=== PATIENT | male | born 1930 | race Caucasian/White ===

== ENCOUNTER → 2016-11-01 | Outpatient (CLI) | payer MEDICARE, OTHER ==
[~2016-11-01] MED LIST: AMLO10TA2 PO; AMLO10TA4 PO; DOXA8TAB3 PO; DOXA8TAB73 PO; FINA5TAB PO; FINA5TAB6 PO; FURO40TA4 PO; LATA2.5D19 OU; LATA2.5D5 OU; METO100T5 PO; MULT-974 PO; OMEG-160 PO; OMEG1CAP51 PO; OMEP20CA12 PO; POTA99TA15 PO; SOTA80TA PO; UBID100C17 PO; VERA120T84 PO; VERA240C2 PO; Verapamil Hcl PO; WARF-48 PO; WARF1TAB6 PO; WARF5TAB6 PO
--- OUTSIDE RECORDS SUMMARY | 2016-11-01 15:44 | XMS REPORT | Continuity of Care Document ---
Author Author [facility] Organization [facility] Address Unknown Phone Unavailable Care Team Providers Care Agricultural Sciences Professor Name Role Phone PCP Unavailable Source Comments Some departments are not documenting in the electronic medical record. If you do not see the information that you expected, contact Release of Information in the Health Information Management department at [phone] for further assistance in locating additional records.[facility] Active Allergies and Adverse Reactions Allergen Noted [...]
[2016-11-01 16:18] LABS: ALBUMIN 4.3 G/DL (3.2-4.5); BILIRUBIN,TOTAL 0.7 MG/DL (0.1-1.0); CALCIUM 9.2 MG/DL (8.5-10.1); CREATININE SERUM 2.85 MG/DL (0.60-1.30); POTASSIUM 3.5 MMOL/L (3.6-5.0)
== END ==
LOC: LAB 15:40
PROVIDERS: ATTEND Nurse Practitioner Family
DX: I48.2 Chronic atrial fibrillation (principal); I50.32 Chronic diastolic (congestive) heart failure; R06.02 Shortness of breath; I10 Essential (primary) hypertension; I25.10 Atherosclerotic heart disease of native coronary artery without angina pectoris; Z79.01 Long term (current) use of anticoagulants
CPT/HCPCS: 36415; 80053; 83735; 83880

== ENCOUNTER 2016-12-11 11:04 | Outpatient (RCR) | payer MEDICARE, OTHER ==
--- OUTSIDE RECORDS SUMMARY | 2016-09-25 14:51 | XMS REPORT | Continuity of Care Document ---
Author Author [facility] Organization [facility] Address Unknown Phone Unavailable Care Team Providers Care Bus Repair Supervisor Name Role Phone PCP Unavailable Source Comments Some departments are not documenting in the electronic medical record. If you do not see the information that you expected, contact Release of Information in the Health Information Management department at [phone] for further assistance in locating additional records.[facility] Active Allergies and Adverse Reactions Allergen Noted Date Severity Reactions Comments Milad Inhibitors 11/26/2006 Allergy recorded in SMS: Milad Inhibitors Current Medications Not on file Active Problems Not on file Social History Tobacco Use Types Packs/Day Years Used Date Never Assessed Plan of Care Health Maintenance Due Date Last Done Comments Physical (Comprehensive) 1939 Exam Pertussis Vaccine 1943 Tetanus Vaccine 1949 Shingles Vaccine 1992 Prevnar/Pneumovax (#1) 1997 Influenza Vaccine 06/21/2015 Results from Last 3 Months Not on file
[2016-09-25 15:18] LABS: INR 3.4 (0.8-1.4); PROTHROMBIN TIME PATIENT 34.7 SEC (12.2-14.7)
[2016-10-30 15:47] LABS: INR 1.9 (0.8-1.4); PROTHROMBIN TIME PATIENT 21.5 SEC (12.2-14.7)
[2016-12-11 11:30] LABS: INR 2.2 (0.8-1.4)
== END 2016-12-24 | disposition home or self-care (01) ==
LOC: LAB 11:04
PROVIDERS: ATTEND Family Medicine
DX: Z51.81 Encounter for therapeutic drug level monitoring (principal); Z79.01 Long term (current) use of anticoagulants
CPT/HCPCS: 36415; 80053; 83735; 83880; 85610

== ENCOUNTER → 2016-12-11 | Outpatient (CLI) | payer MEDICARE, OTHER ==
[2016-12-11 11:39] LABS: ALBUMIN 4.2 G/DL (3.2-4.5); BILIRUBIN,TOTAL 0.8 MG/DL (0.1-1.0); CALCIUM 9.5 MG/DL (8.5-10.1); CREATININE SERUM 3.14 MG/DL (0.60-1.30)
--- OUTSIDE RECORDS SUMMARY | 2016-12-11 13:31 | XMS REPORT | Continuity of Care Document ---
Author Author [facility] Organization [facility] Address Unknown Phone Unavailable Care Team Providers Care Auditing Specialist Name Role Phone PCP Unavailable Source Comments Some departments are not documenting in the electronic medical record. If you do not see the information that you expected, contact Release of Information in the Health Information Management department at [phone] for further assistance in locating additional records.[facility] Active Allergies and Adverse Reactions Allergen [...]
== END ==
LOC: LAB 10:57
PROVIDERS: ATTEND Nurse Practitioner Family
DX: I48.2 Chronic atrial fibrillation (principal); I50.32 Chronic diastolic (congestive) heart failure; R06.02 Shortness of breath; I10 Essential (primary) hypertension; I25.10 Atherosclerotic heart disease of native coronary artery without angina pectoris; Z79.01 Long term (current) use of anticoagulants
CPT/HCPCS: 36415; 80053; 83735; 83880

== ENCOUNTER → 2016-12-18 | Outpatient (CLI) | payer MEDICARE, OTHER ==
[2016-12-18 13:10] LABS: CALCIUM 9.4 MG/DL (8.5-10.1); CREATININE SERUM 3.27 MG/DL (0.60-1.30); POTASSIUM 3.7 MMOL/L (3.6-5.0)
--- OUTSIDE RECORDS SUMMARY | 2016-12-18 16:05 | XMS REPORT | Continuity of Care Document ---
Author Author [facility] Organization [facility] Address Unknown Phone Unavailable Care Team Providers Care Ultrasound Technician Name Role Phone PCP Unavailable Source Comments Some departments are not documenting in the electronic medical record. If you do not see the information that you expected, contact Release of Information in the Health Information Management department at [phone] for further assistance in locating additional records.[facility] Active Allergies and Adverse Reactions Allergen [...]
== END ==
LOC: LAB 12:35
PROVIDERS: ATTEND Nurse Practitioner Family
DX: I25.10 Atherosclerotic heart disease of native coronary artery without angina pectoris (principal); I48.2 Chronic atrial fibrillation; Z79.01 Long term (current) use of anticoagulants; I50.32 Chronic diastolic (congestive) heart failure; I11.0 Hypertensive heart disease with heart failure; Z95.1 Presence of aortocoronary bypass graft; G47.33 Obstructive sleep apnea (adult) (pediatric); Z95.0 Presence of cardiac pacemaker
CPT/HCPCS: 36415; 80048; 83735

== ENCOUNTER → 2016-12-25 | Outpatient (CLI) | payer MEDICARE, OTHER ==
[~2016-12-25] MED LIST changes: +CATHETER FLUSH 10 ML SYR IV PRN; +REGADENOSON 0.4 MG/5 ML SYR (LEXISCAN) IV ONE
--- OUTSIDE RECORDS SUMMARY | 2016-12-25 11:39 | XMS REPORT | Continuity of Care Document ---
Author Author [facility] Organization [facility] Address Unknown Phone Unavailable Care Team Providers Care Mechanic And Welder Name Role Phone PCP Unavailable Source Comments Some departments are not documenting in the electronic medical record. If you do not see the information that you expected, contact Release of Information in the Health Information Management department at [phone] for further assistance in locating additional records.[facility] Active Allergies and Adverse Reactions Allergen [...]
[2016-12-25 12:58] LABS: BILIRUBIN,TOTAL 0.8 MG/DL (0.1-1.0); CALCIUM 9.3 MG/DL (8.5-10.1); CREATININE SERUM 2.81 MG/DL (0.60-1.30); MAGNESIUM 1.7 MG/DL (1.8-2.4); POTASSIUM 4.9 MMOL/L (3.6-5.0); TOTAL PROTEIN 6.5 G/DL (6.4-8.2)
[2016-12-25 13:10] VITALS: BP 146/65
--- NOTE | 2016-12-27 09:47 | STRESS TEST ---
PROCEDURE PHYSICIAN: YUSUF YODER DATE OF PROCEDURE: 12/25/2016 RESTING AND POST REGADENOSON TECHNETIUM 99M TETROFOSMIN SPECT CT IMAGING: CLINICAL DIAGNOSIS: 1. Coronary artery disease. 2. Chronic atrial fibrillation. ORDERING PHYSICIAN: Brii Lopez APRN. PRIMARY PHYSICIAN: Dr. Nash OTHER PHYSICIAN: Dr. Yoder. Baseline images were carried out after injection of 10.67 mCi of technetium 99m tetrofosmin. This was followed by 0.4 mg of regadenoson and 30.3 mCi of technetium 99m tetrofosmin for stress imaging. The electrocardiogram showed atrial fibrillation with right bundle branch block and with a somewhat rapid ventricular response. Isolated premature ventricular contractions were seen during the study. The electrocardiogram did not change significantly with regadenoson infusion. Overall, he tolerated the procedure well. Review of images at rest and following stress, indicate basal inferior perfusion defect which is predominantly fixed. Gated images show global hypokinesis and posterobasal akinesis. Left ventricular ejection fraction is calculated to be 22%. Left ventricular end-diastolic 119 mL. CONCLUSIONS: 1. Basal inferior infarction with minimal bianca-infarct ischemia. 2. Posterobasal akinesis. 3. Global hypokinesis of the left ventricle. 4. Impairment of global left ventricular systolic function with a calculated ejection fraction 22%. 5. Mild to moderate cardiomegaly. Job ID: [id number] Dictated Date: 12/26/2016 17:26:00 Fur Dressing Supervisor Date: 12/27/2016 09:42:38 / lizeth
== END ==
LOC: CARD 11:36
PROVIDERS: ATTEND Nurse Practitioner Family
DX: I25.10 Atherosclerotic heart disease of native coronary artery without angina pectoris (principal); I48.2 Chronic atrial fibrillation; I13.0 Hypertensive heart and chronic kidney disease with heart failure and stage 1 through stage 4 chronic kidney disease, or unspecified chronic kidney disease; I50.32 Chronic diastolic (congestive) heart failure; N18.4 Chronic kidney disease, stage 4 (severe); G47.33 Obstructive sleep apnea (adult) (pediatric); Z79.01 Long term (current) use of anticoagulants
CPT/HCPCS: 36415; 78452; 80053; 83735; 83880; 93017

== ENCOUNTER → 2017-01-08 | Outpatient (CLI) | payer MEDICARE, OTHER ==
[~2017-01-08] MED LIST changes: +HEParin (CENTRAL IV FLUSH) 500 UNIT/5 ML SYR ONE; -REGADENOSON 0.4 MG/5 ML SYR (LEXISCAN) IV ONE
--- NOTE | 2017-01-16 10:19 | Diagnostic Imaging Report ---
PROCEDURE PHYSICIAN: YUSUF YODER RADIONUCLIDE VENTRICULOGRAPHY DATE OF PROCEDURE: 01/08/2017 ORDERING PHYSICIAN: Brii Lopez APRN. PRIMARY PHYSICIAN: Dr. Nash OTHER PHYSICIAN: Dr. Yoder. CLINICAL DIAGNOSIS: Cardiomyopathy. Gated images were obtained after injection of red blood cells tagged with autologous red blood cells tagged with 33 mCi of technetium 99m tetrofosmin. Gated images show global hypokinesia of the left ventricle, somewhat more marked in the septal wall. Left ventricular ejection fraction is calculated to be 21%. CONCLUSION: 1. Global hypokinesia of the left ventricle, somewhat more marked in the interventricular septum. 2. Left ventricular ejection fraction is calculated to be 21%. Job ID: [id number] Dictated Date: 01/15/2017 17:30:00 Manufacturing Specialist Date: 01/16/2017 10:15:23 / monica
== END ==
LOC: CARD 11:31
PROVIDERS: ATTEND Nurse Practitioner Family
DX: I25.5 Ischemic cardiomyopathy (principal)
CPT/HCPCS: 78472

== ENCOUNTER 2017-01-15 12:51 | Outpatient (RCR) | payer MEDICARE, OTHER ==
[2017-01-15 13:18] LABS: INR 2.9 (0.8-1.4); PROTHROMBIN TIME PATIENT 29.8 SEC (12.2-14.7)
== END 2017-04-15 | disposition home or self-care (01) ==
LOC: LAB 12:51
PROVIDERS: ATTEND Family Medicine
DX: Z51.81 Encounter for therapeutic drug level monitoring (principal); Z79.01 Long term (current) use of anticoagulants
CPT/HCPCS: 36415; 85610

== ENCOUNTER → 2017-01-15 | Outpatient (CLI) | payer MEDICARE, OTHER ==
[~2017-01-15] MED LIST changes: -CATHETER FLUSH 10 ML SYR IV PRN; -HEParin (CENTRAL IV FLUSH) 500 UNIT/5 ML SYR ONE
--- NOTE | 2017-01-17 14:10 | ECHOCARDIOGRAPHY REPORT ---
PROCEDURE PHYSICIAN: YUSUF YODER DATE OF PROCEDURE: 01/15/2017 TWO DIMENSIONAL ECHOCARDIOGRAM REPORT PRIMARY PHYSICIAN: Dr. Nash OTHER PHYSICIAN: Dr. Yoder REFERRING PHYSICIAN: ORDERING PHYSICIAN: Brii Lopez APRN INDICATION FOR THE PROCEDURE: Cardiomyopathy. MEASUREMENTS DERIVED VALUES LV DIAMETER (LAX) NORMALS NORMALS Diastolic 5.4 (3.6-5.2) Eject. Fract. (60%+/-6%) Systolic (2.3-3.9) Diastolic Vol. % Shortening (0.22-0.42) Systolic Vol. Aortic Root 3.5 IVS THICKNESS Diastolic 1.1 (0.6-1.1) LVPW THICKNESS Diastolic 1.1 (0.6-1.1) LA DIAMETER Systolic 5.5 (2.1-3.7) DESCRIPTION: Two-dimension echocardiography shows mild impairment of global left ventricular systolic function with mild global hypokinesis. There is paradoxical septal motion. Left ventricular ejection fraction is estimated to be 40 to 45%. Aortic, mitral and tricuspid valve leaflets show good leaflet excursion. There is moderately severe enlargement of the left atrium and mild enlargement of the left ventricle. There is mild to moderate mitral annular calcification and moderate aortic valve sclerosis. Mitral and tricuspid valve leaflets show good leaflet excursion. Aortic valve leaflet structure is difficult to visualize. Aortic valve seemed to have fair leaflet excursion. Echodense structures in the right heart are consistent with pacemaker/defibrillator lead/leads. Doppler imaging shows mild mitral regurgitation. Peak pressure gradient across the aortic valve is approximately 14 mmHg with a mean gradient of approximately 8 mmHg and the aortic valve area is calculated to be approximately 1.6 sq cm. There is no distinct evidence of significant intracardiac shunt. Inferior vena cava appears to be moderately dilated. Pulmonary artery systolic pressure is estimated to be approximately 50 mmHg. There is moderate tricuspid regurgitation. CONCLUSIONS: 1. Dilated cardiomyopathy mild enlargement of the left ventricle and moderately severe enlargement of the left atrium, global hypokinesis of the left ventricle, paradoxical septal motion, and left ventricular ejection fraction of 40 to 45%. 2. Mild mitral regurgitation and moderate tricuspid regurgitation. 3. Aortic valve sclerosis without significant valvular stenosis. 4. Pulmonary hypertension with an estimated pulmonary artery systolic pressure approximately 15 mmHg. 5. Mild to moderate mitral annular calcification without evidence of significant valvular stenosis. Job ID: [id number] Dictated Date: 01/17/2017 12:15:00 Environmental Science Instructor Date: 01/17/2017 13:56:51 / monica
== END ==
LOC: CARD 11:31
PROVIDERS: ATTEND Nurse Practitioner Family
DX: I25.5 Ischemic cardiomyopathy (principal)
CPT/HCPCS: 93306

== ENCOUNTER 2017-01-30 13:30 | Emergency (ER) | payer MEDICARE, OTHER ==
[~2017-01-30] VITALS: Ht 180.3 cm; Wt 95.3 kg
[2017-01-30] MEDS ORDERED: ASPIRIN 81 MG CHEW (CHILDREN'S ASA) PO ONE (14:30)
[2017-01-30 14:41] LABS: INR 4.3 (0.8-1.4); PROTHROMBIN TIME PATIENT 41.7 SEC (12.2-14.7)
[2017-01-30 14:42] LABS: BASOPHILS % (AUTO) 0 % (0-10); EOSINOPHILS % (AUTO) 0 % (0-10); LYMPHOCYTES # (AUTO) 0.7 X 10^3 (1.0-4.0); LYMPHOCYTES % (AUTO) 7 % (12-44); MEAN CORPUSCULAR HEMOGLOBIN 23 PG (25-34); MEAN CORPUSCULAR HGB CONC 29 G/DL (32-36); MEAN CORPUSCULAR VOLUME 80 FL (80-99); MONOCYTES # (AUTO) 0.6 X 10^3 (0.0-1.0); MONOCYTES % (AUTO) 6 % (0-12); NEUTROPHILS # (AUTO) 8.3 X 10^3 (1.8-7.8); NEUTROPHILS % (AUTO) 87 % (42-75); PLATELET COUNT 211 10^3/uL (130-400); RED BLOOD COUNT 4.25 10^6/uL (4.35-5.85); RED CELL DISTRIBUTION WIDTH 18.1 % (10.0-14.5); WHITE BLOOD COUNT 9.6 10^3/uL (4.3-11.0)
[2017-01-30 14:49] LABS: ALANINE AMINOTRANSFERASE 263 U/L (0-55); ANION GAP 18 MMOL/L (5-14); ASPARTATE AMINO TRANSFERASE 207 U/L (5-34); BILIRUBIN,TOTAL 1.8 MG/DL (0.1-1.0); BLOOD UREA NITROGEN 99 MG/DL (7-18); BUN/CREATININE RATIO 22; CALCIUM 9.1 MG/DL (8.5-10.1); CARBON DIOXIDE 18 MMOL/L (21-32); CHLORIDE 105 MMOL/L (98-107); CREATINE KINASE 193 U/L (30-200); CREATININE SERUM 4.55 MG/DL (0.60-1.30); GFR ESTIMATED 12; GLUCOSE 171 MG/DL (70-105); MAGNESIUM 2.5 MG/DL (1.8-2.4); POTASSIUM 4.7 MMOL/L (3.6-5.0); SODIUM 141 MMOL/L (135-145); TOTAL PROTEIN 6.4 G/DL (6.4-8.2)
[2017-01-30 15:09] LABS: TROPONIN I < 0.30 NG/ML (<0.30)
--- NOTE | 2017-01-30 15:11 | ED Lower Extremity ---
General Chief Complaint: Lower Extremity Stated Complaint: LEGS/ANKLES SWELLING Nursing Triage Note: PT HAS BILATERAL LEG SWELLING UP TO KNEES, PT STATES LEGS WEEPING AND HAVE BLISTERS. PT STATES HAS RENAL FAILURE, WAS SENT FROM DR PIERRE OFFICE FOR EVALUATION Nursing Sepsis Screen: No Definite Risk Source: patient (LIMITED HISTORIAN), old records History of Present Illness Time seen by provider: 14:27 Initial Comments PT ARRIVES VIA POV HAS CHRONIC LEG EDEMA, HAS BEEN WORSE FOR THE LAST COUPLE OF DAYS---BUT HAS BEEN THIS BAD BEFORE BOTH LEGS ARE PAINFUL STATES LEGS HAVE HAD BLISTERS THAT HAVE RUPTURED AND WEEPING FOR THE LAST COUPLE OF WEEKS NO FEVER /SWEATS / CHILLS NO CHEST PAIN IS ALWAYS SHORT OF BREATH AND HAS DYSPNEA ON VERY MINIMAL EXERTION, WHICH HAS GRADUALLY GOTTEN WORSE, BUT IS NOT ANY DIFFERENT TODAY THAN IT HAS BEEN STATES HE HAS CHRONIC ATRIAL FIBRILLATION AND IS ON COUMADIN. NO SENSATION OF RAPID HEART RATE. PT STATES HE HAS BEEN ON METOLAZONE FOR LEG SWELLING, LEGS GOT BETTER, THEN MEDICATION WAS DC'D, THEN WAS RESTARTED RECENTLY --PT HAS NO IDEA HOW LONG AGO IT WAS RESTARTED, BUT SOMETIME IN THE LAST MONTH APPARENTLY, BY DR. ABDI PT HAS CHRONIC RENAL FAILURE AND SAW CV SURGEON DR. DAVILA AT [facility] THIS AM FOR EVALUATION FOR AV GRAFT FOR IMPENDING DIALYSIS. SURGERY HAS NOT BEEN SCHEDULED YET PT HAS NOT STARTED DIALYSIS YET, AND STATES HE HAS AN APPOINTMENT WITH DR. HERRING , SOCIAL SERVICES MANAGER, THE FIRST WEEK OF FEBRUARY--HAS NOT SEEN YET, ACCORDING TO PT. PT STATES THAT DR. DAVILA TOLD HIM TO COME HERE TO THIS ER BECAUSE OF HIS LEG SWELLING AND WEEPING. SO PT DROVE TO THIS ER FROM [facility] PCP: DR. VINSON WARDROBE IMAGE CONSULTANT: DR. ABDI Allergies and Home Medications Allergies Coded Allergies: KEELEY Inhibitors (Verified Allergy, Severe, wheezing and swelling in his throat with KEELEY inhibitors, 11/01/15) wheezing and swelling in his throat with KEELEY inhibitors atenolol (Verified Allergy, Severe, swelling throat, 11/01/15) swelling in his throat and wheezing with nonselective beta blockers. metoprolol (Verified Allergy, Severe, throat swelling and dry cough, ) throat swelling and dry cough Rcxjlcx-Vgw-Tes Reductase Inhibitor (Unverified Allergy, Unknown, 1/12/16) Home Medications Amlodipine Besylate 10 Mg Tablet, 10 MG PO DAILY, (Reported) Doxazosin Mesylate 8 Mg Tablet, 4 MG PO HS, (Reported) TAKES 1/2 OF A (8 MG) TABLET Finasteride 5 Mg Tablet, 5 MG PO DAILY, (Reported) Furosemide 40 Mg Tablet, 40 MG PO BID, (Reported) Latanoprost 2.5 Ml Drops, 1 DROP OU HS, (Reported) Multivitamin 1 Each Tablet, 1 TAB PO DAILY, (Reported) [place]-3/Dha/Epa/Fish Oil 1 Each Capsule, 1 CAP PO BID, (Reported) Omeprazole 20 Mg Capsule.dr, 20 MG PO DAILY, (Reported) Potassium Gluconate 99 Mg Tablet, 99 MG PO DAILY, (Reported) Ubidecarenone 100 Mg Capsule, 100 MG PO DAILY, (Reported) Verapamil HCl 120 Mg Tablet.er, 120 MG PO HS, (Reported) Verapamil HCl 240 Mg Cap24h.pel, 240 MG PO DAILY, (Reported) Warfarin Sodium 5 Mg Tablet, 5 MG PO DAILY, (Reported) Warfarin Sodium 1 Mg Tablet, 0.5 MG PO DAILY, (Reported) TAKES 1/2 OF A (1 MG) TABLET WITH A 5 MG TABLET TO EQUAL 6 MG TOTAL Constitutional: no symptoms reported, No chills, No diaphoresis, No fever Respiratory: see HPI, No cough, dyspnea on exertion, orthopnea, short of breath , No wheezing Cardiovascular: see HPI, No chest pain, edema Gastrointestinal: no symptoms reported Genitourinary: no symptoms reported, other (MINIMAL URINE OUTPUT) Musculoskeletal: see HPI Skin: see HPI Psychiatric/Neurological: No Symptoms Reported Past Ajdzrbw-Ztaxpm-Rixwie Hx Patient Social History Alcohol Use: Denies Use Recreational Drug Use: No Smoking Status: Former Smoker (1 PPD, QUIT 1977) Former Smoker/When Quit: Mar 29, 1978 Recent Foreign Travel: No Contact w/Someone Who Travel: No Recent Infectious Disease Expo: No Recent Hopitalizations: No Immunizations Up To Date Tetanus Booster (TDap): Less than 5yrs PED Vaccines UTD: Yes Date of Pneumonia Vaccine: Sep 20, 2014 Date of Influenza Vaccine: Jul 27, 2015 Seasonal Allergies Seasonal Allergies: No Surgeries HX Surgeries: Yes (MITRAL VALVE REPAIR; CARDIAC CATHS--UNKNOWN NUMBER OF STENTS ) Surgeries: Appendectomy, Cardiac, CABG, Coronary Stent, Pacemaker, Valve Replacement Respiratory Hx Respiratory Disorders: No Respiratory Disorders: Sleep Apnea Cardiovascular Hx Cardiac Disorders: Yes (MITRAL VALVE PROLAPSE) Cardiac Disorders: Atrial Fibrillation, Chronic Edema/Swelling, Coronary Artery Disease, Heart Attack, Heart Murmur, Hypertension, Valvular Heart Disease Neurological Hx Neurological Disorders: No Reproductive System Hx Reproductive Disorders: No Sexually Transmitted Disease: No HIV/AIDS: No Genitourinary Hx Genitourinary Disorders: Yes (CHRONIC RENAL FAILURE) Genitourinary Disorders: Renal Failure Gastrointestinal Hx Gastrointestinal Disorders: No Musculoskeletal Hx Musculoskeletal Disorders: No Endocrine Hx Endocrine Disorders: No HEENT HX ENT Disorders: Yes HEENT Disorders: Cataract, Glaucoma Loss of Vision: Right Hearing Impairment: Denies Cancer Hx Cancer: No Psychosocial Hx Psychiatric Problems: No Integumentary HX Skin/Integumentary Disorder: No Blood Transfusions Hx Blood Disorders: No Adverse Reaction to a Blood Tr: No Family Medical History Family Medial History: Diabetes mellitus 19 MOTHER G8 SISTER FH: aneurysm FH: heart disease 19 MOTHER Prostate cancer 19 FATHER Physical Exam Vital Signs Vital Sign - Last 12Hours 01/30/17 01/30/17 01/30/17 13:35 14:15 16:40 Temp 97.5 Pulse 84 Resp 16 B/P (MAP) 109/71 Pulse Ox 99 O2 Delivery Nasal Cannula O2 Flow Rate 2.00 Capillary Refill : Less Than 3 Seconds General Appearance: WD/WN, no apparent distress HEENT: other (RIGHT CORNEA OPACIFIED) Neck: normal inspection Cardiovascular: tachycardia, systolic murmur (2/6), irregularly irregular Respiratory: decreased breath sounds (IN BASES), No rales, No rhonchi, No wheezing Gastrointestinal: non tender, soft Legs: bilateral leg other (4+ EDEMA TO BILATERAL LOWER LEGS, WITH CHRONIC VENOUS STASIS CHANGES AND MILD ERYTHEMA TO LOWER LEGS. HAS MULTIPLE ULCERATIONS WITH ADHERENT WHITE EXUDATE AND PROFUSE WEEPING OF CLEAR SEROUS FLUID FROM LOWER LEGS--LITERALLY DRIPPING INTO POOLS ON THE FLOOR AND ER CART) Neurologic/Tendon: normal sensation, normal motor functions, normal tendon functions Neurologic/Psychiatric: no motor/sensory deficits, alert, normal mood/affect, oriented x 3 Skin: normal color, warm/dry, other ( ABOVE) Progress/Results/Core Measures Results/Orders Lab Results Laboratory Tests Test 01/30/17 13:50 01/30/17 15:55 Range/Units White Blood Count 9.6 4.3-11.0 10^3/uL Red Blood Count 4.25 L 4.35-5.85 10^6/uL Hemoglobin 9.8 L 13.3-17.7 G/DL Hematocrit 34 L 40-54 % Mean Corpuscular Volume 80 80-99 FL Mean Corpuscular Hemoglobin 23 L 25-34 PG Mean Corpuscular Hemoglobin Concent 29 L 32-36 G/DL Red Cell Distribution Width 18.1 H 10.0-14.5 % Platelet Count 211 130-400 10^3/uL Mean Platelet Volume 11.0 H 7.4-10.4 FL Neutrophils (%) (Auto) 87 H 42-75 % Lymphocytes (%) (Auto) 7 L 12-44 % Monocytes (%) (Auto) 6 0-12 % Eosinophils (%) (Auto) 0 0-10 % Basophils (%) (Auto) 0 0-10 % Neutrophils # (Auto) 8.3 H 1.8-7.8 X 10^3 Lymphocytes # (Auto) 0.7 L 1.0-4.0 X 10^3 Monocytes # (Auto) 0.6 0.0-1.0 X 10^3 Eosinophils # (Auto) 0.0 0.0-0.3 10^3/uL Basophils # (Auto) 0.0 0.0-0.1 10^3/uL Neutrophils % (Manual) 90 % Lymphocytes % (Manual) 6 % Monocytes % (Manual) 3 % Eosinophils % (Manual) 0 % Basophils % (Manual) 0 % Band Neutrophils 1 % Hypochromasia SLIGHT Poikilocytosis SLIGHT Anisocytosis SLIGHT Elliptocytes SLIGHT Prothrombin Time 41.7 H 12.2-14.7 SEC INR Comment 4.3 H 0.8-1.4 Activated Partial Thromboplast Time 44 H 24-35 SEC Sodium Level 141 135-145 MMOL/L Potassium Level 4.7 3.6-5.0 MMOL/L Chloride Level 105 98-107 MMOL/L Carbon Dioxide Level 18 L 21-32 MMOL/L Anion Gap 18 H 5-14 MMOL/L Blood Urea Nitrogen 99 H 7-18 MG/DL Creatinine 4.55 H 0.60-1.30 MG/DL Estimat Glomerular Filtration Rate 12 BUN/Creatinine Ratio 22 Glucose Level 171 H 70-105 MG/DL Calcium Level 9.1 8.5-10.1 MG/DL Magnesium Level 2.5 H 1.8-2.4 MG/DL Total Bilirubin 1.8 H 0.1-1.0 MG/DL Aspartate Amino Transf (AST/SGOT) 207 H 5-34 U/L Alanine Aminotransferase (ALT/SGPT) 263 H 0-55 U/L Alkaline Phosphatase 75 40-136 U/L Total Creatine Kinase 193 30-200 U/L Creatine Kinase MB 8.9 *H <6.6 NG/ML Troponin I < 0.30 <0.30 NG/ML B-Type Natriuretic Peptide 2120.6 H <100.0 PG/ML Total Protein 6.4 6.4-8.2 G/DL Albumin 4.0 3.2-4.5 G/DL TSH [place] Testing 1.82 0.35-4.94 UIU/ML Urine Color YELLOW Urine Clarity CLEAR Urine pH 5 5-9 Urine Specific [place] 1.020 1.016-1.022 Urine Protein 1+ H NEGATIVE Urine Glucose (UA) NEGATIVE NEGATIVE Urine Ketones NEGATIVE NEGATIVE Urine Nitrite NEGATIVE NEGATIVE Urine Bilirubin NEGATIVE NEGATIVE Urine Urobilinogen NORMAL NORMAL MG/DL Urine Leukocyte Esterase NEGATIVE NEGATIVE Urine RBC (Auto) NEGATIVE NEGATIVE Urine RBC NONE /HPF Urine WBC RARE /HPF Urine Squamous Epithelial Cells RARE /HPF Urine Crystals NONE /LPF Urine Bacteria TRACE /HPF Urine Casts PRESENT /LPF Urine Hyaline Casts 25-50 H /LPF Urine Mucus NEGATIVE /LPF Urine Culture Indicated NO Micro Results Microbiology 01/30/17 Gram Stain - Final, Resulted 01/30/17 Wound Culture - Preliminary, Resulted Probable Enterococcus Species Gram Negative Moris My Orders Orders - SHANEKA ANDRADE DO Cbc With Automated Diff (01/30/17 14:27) Comprehensive Metabolic Panel (01/30/17 14:27) Creatine Kinase (01/30/17 14:27) Creatine Kinase Mb (01/30/17 14:27) Partial Thromboplastin Time (01/30/17 14:27) Protime With Inr (01/30/17 14:27) Troponin I (01/30/17 14:27) Chest 1 View, Ap/Pa Only (01/30/17 14:27) O2 (01/30/17 14:27) Ekg Tracing (01/30/17 14:27) Aspirin Chewable Tablet (Baby Aspirin Ch (01/30/17 14:30) BNP (01/30/17 14:27) Monitor-Rhythm Ecg Trace Only (01/30/17 14:27) Magnesium (01/30/17 14:27) Thyroid Analyzer (01/30/17 14:27) Manual Differential (01/30/17 13:50) Wound Culture (01/30/17 14:51) Mupirocin Ointment (Bactroban Ointment (01/30/17 21:00) Wound Dressing-Ed (01/30/17 15:11) Norepinephrine (Levophed) (01/30/17 15:24) D5w 250 Ml (Ivpb) (Dextrose 5% Water Iv (01/30/17 15:24) Saline Lock/Iv-Start (01/30/17 15:29) Ns Iv 1000 Ml (Sodium Chloride 0.9%) (01/30/17 15:29) D5w 250 Ml (Ivpb) (... W/Norepinephrine (01/30/17 15:30) Catheter(Urinary) Insert & Ass 03,15 (01/30/17 15:31) Fentanyl Injection (Sublimaze Injection (01/30/17 15:48) Ua Culture If Indicated (01/30/17 16:07) Iv Infusion <= First Hr Ed (01/30/17 ) Medications Given in ED Vital Signs/I&O Vital Sign - Last 12Hours 01/30/17 01/30/17 01/30/17 13:35 14:15 16:40 Temp 97.5 Pulse 84 118 Resp 16 B/P (MAP) 109/71 Pulse Ox 99 94 96 O2 Delivery Nasal Cannula O2 Flow Rate 2.00 Blood Pressure Mean: 84 Progress Note : Progress Note PT BEGAN TO HAVE DROP IN BP--GIVEN FLUID BOLUS AND STARTED ON LEVOPHED WITH RAPID IMPROVEMENT IN BP AND HEART RATE. ECG Initial ECG Impression Time: 14:19 Initial ECG Rate: 146 Initial ECG Rhythm: A Fib/Flutter (WTIH RVR) Diagnostic Imaging Comments CXR--CARDIOMEGALY, CHRONIC ATELECTASIS/EFFUSION IN RLL--UNCHANGED FROM PREVIOUS- -PER RADIOLOGIST REPORT @ 1519 Reviewed: Reviewed by Me Critical Care Note Critical Care Total Time (minutes) 20 Departure Communication Progress Notes [id number]--CALLED [facility] [id number]--SPOKE WITH DR. DELEON, BRISKET PULLER, ACCEPTS PT FOR ADMIT/TRANSFER Impression Impression: Primary Impression: ESRF (end stage renal failure) Additional Impressions: SEVERE LEG EDEMA MULTIPLE VENOUS STASIS BLISTERS AND ULCERATIONS ATRIAL FIBRILLATION WITH RVR AND HYPOTENSION Elevated liver enzymes CHF (congestive heart failure) Disposition: XFER SHT-TRM HOSP Condition: Improved Departure-Patient Inst. Referrals: SARA VINSON MD (PCP/Family) Primary Care Physician SHANEKA ANDRADE DO Jan 30, 2017 15:11
[2017-01-30 15:13] LABS: ANISOCYTOSIS SLIGHT; BAND NEUTROPHILS 1 %; BASOPHILS % (MANUAL) 0 %; EOSINOPHILS % (MANUAL) 0 %; HYPOCHROMASIA SLIGHT; LYMPHOCYTES % (MANUAL) 6 %; NEUTROPHILS % (MANUAL) 90 %; POIKILOCYTOSIS SLIGHT
--- NOTE | 2017-01-30 15:14 | Diagnostic Imaging Report ---
EXAMINATION: Portable upright radiograph of the chest. INDICATION: Ankles and feet swelling. History of heart failure. FINDINGS: The heart is moderately enlarged. There is a small right pleural effusion or pleural thickening, similar to 10/31/2015. There is mild right basilar opacity also seen which may relate to atelectasis. The left lung appears clear. No pneumothorax. The mediastinum and dary appear unchanged. Sternotomy wires and a pacemaker with three leads seen. IMPRESSION: Cardiomegaly. A small right effusion and right basilar opacity, likely related to atelectasis, are seen. The appearance is similar to the October 2015 radiograph. Dictated by: Dictated on workstation # [id number]
[2017-01-30] MEDS ORDERED: D5W 250 ML (IVPB) 250 ML IV ONE (15:24)
[2017-01-30] MEDS ORDERED: NOREPINEPHRINE 4 MG/4 ML (LEVOPHED) AMP IV ONE (15:24)
[2017-01-30] MEDS ORDERED: NS IV 1000 ML 1,000 ML IV ONE (15:29)
[2017-01-30] MEDS ORDERED: NOREPINEPHRINE 4 MG in D5W 250 ML (IVPB) 250 ML IV SCH (15:30)
[2017-01-30] MEDS ORDERED: fentaNYL INJECTION 100 MCG/2 ML AMP IVP STA (15:48)
[2017-01-30 16:16] LABS: BILIRUBIN,URINE NEGATIVE (NEGATIVE); KETONES,URINE NEGATIVE (NEGATIVE); LEUKOCYTE ESTERASE ,URINE NEGATIVE (NEGATIVE); NITRITE,URINE NEGATIVE (NEGATIVE); PH,URINE 5 (5-9); PROTEIN,URINE 1+ (NEGATIVE); UROBILINOGEN,URINE NORMAL (NORMAL)
[2017-01-30 16:40] VITALS: BP 142/62
[2017-01-30 16:43] LABS: HYALINE CASTS, URINE 25-50 /LPF; SQUAMOUS EPITHELIAL CELL,UR RARE /HPF; WBC,URINE RARE /HPF
[2017-01-30] MEDS ORDERED: MUPIROCIN 2% OINT 22 GM (BACTROBAN) TUBE TOP SCH (21:00)
== END 2017-01-30 16:41 | disposition short-term general hospital (02) ==
LOC: EDUNIT# 13:30 → ER 13:31
DX: L97.921 Non-pressure chronic ulcer of unspecified part of left lower leg limited to breakdown of skin (principal); L97.911 Non-pressure chronic ulcer of unspecified part of right lower leg limited to breakdown of skin; I12.9 Hypertensive chronic kidney disease with stage 1 through stage 4 chronic kidney disease, or unspecified chronic kidney disease; N18.9 Chronic kidney disease, unspecified; R74.8 Abnormal levels of other serum enzymes; I25.10 Atherosclerotic heart disease of native coronary artery without angina pectoris; I48.2 Chronic atrial fibrillation; Z79.01 Long term (current) use of anticoagulants; Z79.899 Other long term (current) drug therapy; Z95.1 Presence of aortocoronary bypass graft; Z95.5 Presence of coronary angioplasty implant and graft; Z95.2 Presence of prosthetic heart valve
CPT/HCPCS: 36415; 51702; 71010; 80053; 81000; 82550; 82553; 83735; 83880; 84443; 84484; 85007; 85027; 85610; 85730; 87070; 87077; 87186; 87205; 93005; 93041; 96361; 96365; 96375

== ENCOUNTER 2017-03-27 08:19 | Outpatient (RCR) | payer MEDICARE, OTHER ==
[2017-04-27] MEDS ORDERED: FURO-124 PO (11:40)
[2017-04-27] MEDS ORDERED: DAPS25TA2 PO (11:40)
[2017-04-27] MEDS ORDERED: DIGO125T PO (11:40)
[2017-04-27] MEDS ORDERED: MELA10TA PO (11:40)
[2017-04-27] MEDS ORDERED: METO2.5T PO (11:40)
[2017-04-27] MEDS ORDERED: MAG30ORA2 PO (11:40)
[2017-04-27] MEDS ORDERED: DILT180C64 PO (11:40)
[2017-04-27] MEDS ORDERED: GLUC500C2 PO (11:40)
[2017-04-27] MEDS ORDERED: SAW500CA10 PO (11:40)
[2017-04-27] MEDS ORDERED: LATA2.5D5 OP (11:40)
[2017-04-27] MEDS ORDERED: METO-270 PO (11:40)
[2017-04-27] MEDS ORDERED: HYDR-753 PO (11:40)
[2017-04-27] MEDS ORDERED: TAMS0.4C2 PO (11:40)
== END 2017-04-26 10:36 | disposition home or self-care (01) ==
LOC: WOUNDCARE 08:19
PROVIDERS: ATTEND Surgery
DX: L97.222 Non-pressure chronic ulcer of left calf with fat layer exposed (principal); I87.332 Chronic venous hypertension (idiopathic) with ulcer and inflammation of left lower extremity; L95.9 Vasculitis limited to the skin, unspecified; L02.416 Cutaneous abscess of left lower limb; I89.0 Lymphedema, not elsewhere classified; N18.5 Chronic kidney disease, stage 5; I50.9 Heart failure, unspecified; I70.242 Atherosclerosis of native arteries of left leg with ulceration of calf; L88 Pyoderma gangrenosum; L20.89 Other atopic dermatitis
CPT/HCPCS: 11042; 11045; 11055; 11101; 87070; 87075; 87077; 87186; 87205; 88305; 88312; 99215

== ENCOUNTER 2017-04-03 10:58 | Emergency (ER) | payer MEDICARE, OTHER ==
[~2017-04-03] VITALS: Ht 180.3 cm; Wt 99.8 kg
--- NOTE | 2017-04-03 11:23 | ED General ---
General Stated Complaint: EXCESSIVE FLUID Source of Information: Patient, Prison Records History of Present Illness Time Seen by Provider: 11:18 Initial Comments To ER from medical [facility] with reports of general weakness. He is a patient of Dr. Nash and he also sees Dr. Mejia training facilitator at [facility]. His chronic kidney disease and has been referred to Dr. Hanna for AV fistula development in preparation for hemodialysis. No surgery has been scheduled yet. Patient is DO NOT RESUSCITATE status. Patient states that he is swollen all over but this is no different than it has been for the past 5 weeks. He is short of breath with any exertion but not any worse than usual for the past several weeks. Oxygen saturation 99 percent on his baseline 2 L. Heart rate 130 on arrival, blood pressure 91/78. He is also seeing Dr. 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 Timing/Duration: 1-2 Days Severity: Moderate Associated Systoms: Weakness Allergies and Home Medications Allergies Coded Allergies: KEELEY Inhibitors (Verified Allergy, Severe, wheezing and swelling in his throat with KEELEY inhibitors, 11/01/15) wheezing and swelling in his throat with KEELEY inhibitors atenolol (Verified Allergy, Severe, swelling throat, 11/01/15) swelling in his throat and wheezing with nonselective beta blockers. metoprolol (Verified Allergy, Severe, throat swelling and dry cough, ) throat swelling and dry cough Czhbqnj-Qiw-Pym Reductase Inhibitor (Unverified Allergy, Unknown, 11/01/15) Home Medications Amlodipine Besylate 10 Mg Tablet, 10 MG PO DAILY, (Reported) Doxazosin Mesylate 8 Mg Tablet, 4 MG PO HS, (Reported) TAKES 1/2 OF A (8 MG) TABLET Finasteride 5 Mg Tablet, 5 MG PO DAILY, (Reported) Furosemide 40 Mg Tablet, 40 MG PO BID, (Reported) Latanoprost 2.5 Ml Drops, 1 DROP OU HS, (Reported) Multivitamin 1 Each Tablet, 1 TAB PO DAILY, (Reported) [place]-3/Dha/Epa/Fish Oil 1 Each Capsule, 1 CAP PO BID, (Reported) Omeprazole 20 Mg Capsule.dr, 20 MG PO DAILY, (Reported) Potassium Gluconate 99 Mg Tablet, 99 MG PO DAILY, (Reported) Ubidecarenone 100 Mg Capsule, 100 MG PO DAILY, (Reported) Verapamil HCl 120 Mg Tablet.er, 120 MG PO HS, (Reported) Verapamil HCl 240 Mg Cap24h.pel, 240 MG PO DAILY, (Reported) Warfarin Sodium 5 Mg Tablet, 5 MG PO DAILY, (Reported) Warfarin Sodium 1 Mg Tablet, 0.5 MG PO DAILY, (Reported) TAKES 1/2 OF A (1 MG) TABLET WITH A 5 MG TABLET TO EQUAL 6 MG TOTAL Constitutional: see HPI, weakness EENTM: see HPI Respiratory: see HPI, short of breath Cardiovascular: no symptoms reported Genitourinary: see HPI, dysuria Musculoskeletal: no symptoms reported Skin: no symptoms reported Psychiatric/Neurological: No Symptoms Reported Hematologic/Lymphatic: No Symptoms Reported Immunological/Allergic: no symptoms reported Past Vvdzcze-Dyefvw-Acaojd Hx Patient Social History Former Smoker/When Quit: Mar 29, 1978 Recent Foreign Travel: No Contact w/Someone Who Travel: No Recent Hopitalizations: No Immunizations Up To Date Tetanus Booster (TDap): Less than 5yrs PED Vaccines UTD: Yes Date of Pneumonia Vaccine: Sep 20, 2014 Date of Influenza Vaccine: Jul 27, 2015 Seasonal Allergies Seasonal Allergies: No Surgeries HX Surgeries: Yes (MITRAL VALVE REPAIR; CARDIAC CATHS--UNKNOWN NUMBER OF STENTS ) Surgeries: Appendectomy, Cardiac, CABG, Coronary Stent, Pacemaker, Valve Replacement Respiratory Hx Respiratory Disorders: No Respiratory Disorders: Sleep Apnea Cardiovascular Hx Cardiac Disorders: Yes (MITRAL VALVE PROLAPSE) Cardiac Disorders: Atrial Fibrillation, Chronic Edema/Swelling, Coronary Artery Disease, Heart Attack, Heart Murmur, Hypertension, Valvular Heart Disease Neurological Hx Neurological Disorders: No Reproductive System Hx Reproductive Disorders: No Sexually Transmitted Disease: No HIV/AIDS: No Genitourinary Hx Genitourinary Disorders: Yes (CHRONIC RENAL FAILURE) Genitourinary Disorders: Renal Failure Gastrointestinal Hx Gastrointestinal Disorders: No Musculoskeletal Hx Musculoskeletal Disorders: No Endocrine Hx Endocrine Disorders: No HEENT HX ENT Disorders: Yes HEENT Disorders: Cataract, Glaucoma Loss of Vision: Right Hearing Impairment: Denies Cancer Hx Cancer: No Psychosocial Hx Psychiatric Problems: No Integumentary HX Skin/Integumentary Disorder: No Blood Transfusions Hx Blood Disorders: No Adverse Reaction to a Blood Tr: No Family Medical History Family Medial History: Diabetes mellitus 19 MOTHER G8 SISTER FH: aneurysm FH: heart disease 19 MOTHER Prostate cancer 19 FATHER Physical Exam Vital Signs Vital Sign - Last 12Hours 04/03/17 10:58 Temp 98.5 Pulse 130 Resp 20 B/P (MAP) 91/76 Pulse Ox 96 O2 Delivery Nasal Cannula Capillary Refill : General Appearance: No Apparent Distress, WD/WN, Chronically ill, Other ( anasarca with pitting edema even on the abdomen.) Eyes: Bilateral Eye EOMI, Bilateral Eye Normal Inspection, Bilateral Eye PERRL HEENT: PERRL/EOMI, TMs Normal Neck: Full Range of Motion, Normal Inspection Respiratory: Normal Breath Sounds, No Accessory Muscle Use, No Respiratory Distress Cardiovascular: Normal Peripheral Pulses, Irregularly Irregular Gastrointestinal: Non Tender, Soft Extremity: Normal Capillary Refill, Other (multiple ulcerative lesions to the posterior left calf. Swelling to bilateral lower extremities 3-4+. He has swelling to the dependent regions of each of his arms) Neurologic/Psychiatric: Alert, Oriented x3, No Motor/Sensory Deficits Skin: Normal Color, Warm/Dry Focused Exam Lactic Acid Level Laboratory Tests Test 04/03/17 12:40 Progress/Results/Core Measures Results/Orders Lab Results Laboratory Tests Test 04/03/17 11:50 04/03/17 12:00 04/03/17 12:40 Range/Units White Blood Count 11.1 H 4.3-11.0 10^3/uL Red Blood Count 3.86 L 4.35-5.85 10^6/uL Hemoglobin 8.5 L 13.3-17.7 G/DL Hematocrit 30 L 40-54 % Mean Corpuscular Volume 76 L 80-99 FL Mean Corpuscular Hemoglobin 22 L 25-34 PG Mean Corpuscular Hemoglobin Concent 29 L 32-36 G/DL Red Cell Distribution Width 19.5 H 10.0-14.5 % Platelet Count 174 130-400 10^3/uL Mean Platelet Volume 10.0 7.4-10.4 FL Neutrophils (%) (Auto) 83 H 42-75 % Lymphocytes (%) (Auto) 9 L 12-44 % Monocytes (%) (Auto) 8 0-12 % Eosinophils (%) (Auto) 1 0-10 % Basophils (%) (Auto) 0 0-10 % Neutrophils # (Auto) 9.1 H 1.8-7.8 X 10^3 Lymphocytes # (Auto) 1.0 1.0-4.0 X 10^3 Monocytes # (Auto) 0.8 0.0-1.0 X 10^3 Eosinophils # (Auto) 0.1 0.0-0.3 10^3/uL Basophils # (Auto) 0.0 0.0-0.1 10^3/uL Prothrombin Time 37.0 H 12.2-14.7 SEC INR Comment 3.7 H 0.8-1.4 Activated Partial Thromboplast Time 42 H 24-35 SEC Sodium Level 136 135-145 MMOL/L Potassium Level 4.1 3.6-5.0 MMOL/L Chloride Level 97 L 98-107 MMOL/L Carbon Dioxide Level 23 21-32 MMOL/L Anion Gap 16 H 5-14 MMOL/L Blood Urea Nitrogen 124 *H 7-18 MG/DL Creatinine 3.45 H 0.60-1.30 MG/DL Estimat Glomerular Filtration Rate 17 BUN/Creatinine Ratio 36 H 0-20 Glucose Level 200 H 70-105 MG/DL Calcium Level 7.8 L 8.5-10.1 MG/DL Magnesium Level 2.2 1.8-2.4 MG/DL Total Bilirubin 1.4 H 0.1-1.0 MG/DL Aspartate Amino Transf (AST/SGOT) 23 5-34 U/L Alanine Aminotransferase (ALT/SGPT) 18 0-55 U/L Alkaline Phosphatase 79 40-136 U/L Total Protein 6.4 6.4-8.2 GM/DL Albumin 3.3 3.2-4.5 GM/DL Urine Color YELLOW Urine Clarity SLIGHTLY CLOUDY Urine pH 5 5-9 Urine Specific [place] 1.020 1.016-1.022 Urine Protein 2+ H NEGATIVE Urine Glucose (UA) NEGATIVE NEGATIVE Urine Ketones NEGATIVE NEGATIVE Urine Nitrite NEGATIVE NEGATIVE Urine Bilirubin NEGATIVE NEGATIVE Urine Urobilinogen 1 NORMAL MG/DL Urine Leukocyte Esterase NEGATIVE NEGATIVE Urine RBC (Auto) NEGATIVE NEGATIVE Urine RBC NONE /HPF Urine WBC NONE /HPF Urine Squamous Epithelial Cells NONE /HPF Urine Crystals PRESENT H /LPF Urine Amorphous Sediment FEW LES URATES H /LPF Urine Bacteria NEGATIVE /HPF Urine Casts PRESENT /LPF Urine Hyaline Casts 0-2 H /LPF Urine Mucus NEGATIVE /LPF Urine Culture Indicated NO My Orders Orders - JM GALVAN HALFTONE OPERATOR Cbc With Automated Diff (04/03/17 11:12) Comprehensive Metabolic Panel (04/03/17 11:12) Ua Culture If Indicated (04/03/17 11:12) Chest 1 View, Ap/Pa Only (04/03/17 11:12) Ekg Tracing (04/03/17 11:12) Magnesium (04/03/17 11:12) Protime With Inr (04/03/17 11:12) Partial Thromboplastin Time (04/03/17 11:12) Ns Iv 1000 Ml (Sodium Chloride 0.9%) (04/03/17 11:30) Blood Culture (04/03/17 12:28) Lactic Acid Analyzer (04/03/17 12:28) Vital Signs/I&O Vital Sign - Last 12Hours 04/03/17 10:58 Temp 98.5 Pulse 130 Resp 20 B/P (MAP) 91/76 Pulse Ox 96 O2 Delivery Nasal Cannula Diagnostic Imaging Diagonstic Imaging: Xray Plain Films/CT/US/NM/MRI: chest Comments NAME: BRITNI HOLLOWAY [facility] REC#: [id number] PT STATUS: REG ER : 1930 PHYSICIAN: JM GALVAN APRN ADMIT DATE: 04/03/17/ER Draft Date of Exam:04/03/17 CHEST 1 VIEW, AP/PA ONLY EXAMINATION: Portable upright radiograph of the chest. INDICATION: Fluid overload. FINDINGS: The heart is moderately enlarged. There is right basilar infiltrate or atelectasis with a small to moderate right pleural effusion. The left lung is clear. The heart size is moderately enlarged. No pneumothorax. Sternotomy wires are seen and there is a left-sided pacemaker with two cardiac leads noted. IMPRESSION: There is right basilar infiltrate or atelectasis with an associated small to moderate effusion. This could be related to underlying infection or asymmetric edema. Correlate clinically and with followup exams. Dictated on workstation # [id number] Dict: 04/03/17 1210 Trans: 04/03/17 1223 [id number] Interpreted by: DANIEL SANDHU MD Electronically signed by: Patient had a chest x-ray done here January of this year with the same findings showing a right basilar opacity and effusion so this is not a change. Patient does not have cough, fever or leukocytosis. --->NAME: JEWELBRITNI R [facility] REC#: [id number] PT STATUS: [facility] ER : 1930 PHYSICIAN: SHANEKA ANDRADE DO ADMIT DATE: 01/30/17/ER Signed Date of Exam: 01/30/17 CHEST 1 VIEW, AP/PA ONLY EXAMINATION: Portable upright radiograph of the chest. INDICATION: Ankles and feet swelling. History of heart failure. FINDINGS: The heart is moderately enlarged. There is a small right pleural effusion or pleural thickening, similar to 10/31/2015. There is mild right basilar opacity also seen which may relate to atelectasis. The left lung appears clear. No pneumothorax. The mediastinum and dary appear unchanged. Sternotomy wires and a pacemaker with three leads seen. IMPRESSION: Cardiomegaly. A small right effusion and right basilar opacity, likely related to atelectasis, are seen. The appearance is similar to the October 2015 radiograph. Dictated by: Dictated on workstation # [id number] Dict: 01/30/17 1510 Trans: 01/30/17 1541 Interpreted by: DANIEL SANDHU MD Electronically signed by: DANIEL SANDHU MD 01/30/17 1541 Departure Communication Progress Notes ECHOCARDIOGRAM FROM DECEMBER OF THIS YEAR NAME: BRITNI HOLLOWAY Delfino [facility] REC#: [id number] PHYSICIAN: YUSUF ABDI MDP FAC CCDS CC: ANSELMO HAM; YUSUF ABDI MDP FAC CCDS; SARA NASH MD Page 2 of 2 ECHOCARDIOGRAPHY REPORT VIA [facility]. [place], [place] CC: ANSELMO HAM; YUSUF ABDI MDP FACC CCDS; SARA NASH MD Page 1 of 2 ECHOCARDIOGRAPHY REPORT CONCLUSIONS: 1. Dilated cardiomyopathy mild enlargement of the left ventricle and moderately severe enlargement of the left atrium, global hypokinesis of the left ventricle, paradoxical septal motion, and left ventricular ejection fraction of 40 to 45%. 2. Mild mitral regurgitation and moderate tricuspid regurgitation. 3. Aortic valve sclerosis without significant valvular stenosis. 4. Pulmonary hypertension with an estimated pulmonary artery systolic pressure approximately 15 mmHg. 5. Mild to moderate mitral annular calcification without evidence of significant valvular stenosis. Job ID: [id number] Dictated Date: 01/17/2017 12:15:00 Convention Manager Date: 01/17/2017 13:56:51 / [facility] [id number] Dictated by YUSUF ABDI MD, MA, FACP, FACC, FSCAI, CCDS Electronically signed by YUSUF ABDI MD, NIESHA, FACP, FACC, FSCAI, CCDS 01/18/17 0913 [id number]-[id number] did discuss the case with our hospitalist Dr. Vaughn who agrees with transfer. I then discussed the case with Dr. Xiong from [facility] in [place] who accepts the patient for transfer. On arrival to ER patient's heart rate was 130s atrial fibrillation with a blood pressure of 90/70. After 1 L of IV fluids his heart rate is currently 110 and blood pressure 100/75. He remains 99 percent on his baseline 2 L. Patient will go to the medical telemetry floor. Dr. Xiong looked at his labs and his BUN was 125 on their last check with a creatinine of 3.5 so this is less alarming. Impression Impression: Primary Impression: CHF (congestive heart failure) Additional Impressions: Chronic atrial fibrillation Chronic renal failure Anasarca associated with disorder of kidney Intravascular volume depletion Disposition: 02 XFER SHT-TRM HOSP Condition: Critical Departure-Patient Inst. Referrals: SARA NASH MD (PCP/Family) Primary Care Physician JM GALVAN APRN Apr 03, 2017 11:22
[2017-04-03] MEDS ORDERED: NS IV 1000 ML 1,000 ML IV SCH (11:30)
[2017-04-03 11:58] LABS: BASOPHILS % (AUTO) 0 % (0-10); EOSINOPHILS # (AUTO) 0.1 10^3/uL (0.0-0.3); EOSINOPHILS % (AUTO) 1 % (0-10); LYMPHOCYTES % (AUTO) 9 % (12-44); MEAN CORPUSCULAR HEMOGLOBIN 22 PG (25-34); MEAN CORPUSCULAR HGB CONC 29 G/DL (32-36); MEAN CORPUSCULAR VOLUME 76 FL (80-99); MONOCYTES # (AUTO) 0.8 X 10^3 (0.0-1.0); MONOCYTES % (AUTO) 8 % (0-12); NEUTROPHILS # (AUTO) 9.1 X 10^3 (1.8-7.8); NEUTROPHILS % (AUTO) 83 % (42-75); PLATELET COUNT 174 10^3/uL (130-400); RED BLOOD COUNT 3.86 10^6/uL (4.35-5.85); RED CELL DISTRIBUTION WIDTH 19.5 % (10.0-14.5); WHITE BLOOD COUNT 11.1 10^3/uL (4.3-11.0)
[2017-04-03 12:09] LABS: BILIRUBIN,URINE NEGATIVE (NEGATIVE); KETONES,URINE NEGATIVE (NEGATIVE); LEUKOCYTE ESTERASE ,URINE NEGATIVE (NEGATIVE); NITRITE,URINE NEGATIVE (NEGATIVE); PH,URINE 5 (5-9); PROTEIN,URINE 2+ (NEGATIVE); UROBILINOGEN,URINE 1 MG/DL (NORMAL)
[2017-04-03 12:09] LABS: INR 3.7 (0.8-1.4)
[2017-04-03 12:15] LABS: HYALINE CASTS, URINE 0-2 /LPF
[2017-04-03 12:17] LABS: ALBUMIN 3.3 GM/DL (3.2-4.5); BILIRUBIN,TOTAL 1.4 MG/DL (0.1-1.0); CALCIUM 7.8 MG/DL (8.5-10.1); CREATININE SERUM 3.45 MG/DL (0.60-1.30); MAGNESIUM 2.2 MG/DL (1.8-2.4); POTASSIUM 4.1 MMOL/L (3.6-5.0); TOTAL PROTEIN 6.4 GM/DL (6.4-8.2)
--- NOTE | 2017-04-03 12:24 | Diagnostic Imaging Report ---
EXAMINATION: Portable upright radiograph of the chest. INDICATION: Fluid overload. FINDINGS: The heart is moderately enlarged. There is right basilar infiltrate or atelectasis with a small to moderate right pleural effusion. The left lung is clear. The heart size is moderately enlarged. No pneumothorax. Sternotomy wires are seen and there is a left-sided pacemaker with two cardiac leads noted. IMPRESSION: There is right basilar infiltrate or atelectasis with an associated small to moderate effusion. This could be related to underlying infection or asymmetric edema. Correlate clinically and with followup exams. Dictated by: Dictated on workstation # [id number]
[2017-04-03 13:28] VITALS: BP 104/70
== END 2017-04-03 13:28 | disposition short-term general hospital (02) ==
LOC: EDUNIT# 10:58 → ER 11:00
DX: I13.0 Hypertensive heart and chronic kidney disease with heart failure and stage 1 through stage 4 chronic kidney disease, or unspecified chronic kidney disease (principal); I50.9 Heart failure, unspecified; N18.9 Chronic kidney disease, unspecified; N04.9 Nephrotic syndrome with unspecified morphologic changes; E86.9 Volume depletion, unspecified; I48.91 Unspecified atrial fibrillation; I25.10 Atherosclerotic heart disease of native coronary artery without angina pectoris; Z79.01 Long term (current) use of anticoagulants; Z95.5 Presence of coronary angioplasty implant and graft; Z95.0 Presence of cardiac pacemaker; Z95.2 Presence of prosthetic heart valve
CPT/HCPCS: 36415; 51702; 71010; 80053; 81000; 83605; 83735; 85025; 85610; 85730; 87040; 87077; 87186; 93005

== ENCOUNTER 2017-04-27 10:31 | Inpatient (IN) | payer MEDICARE, OTHER ==
[~2017-04-27] VITALS: Ht 180.3 cm; Wt 124.3 kg
[2017-04-27] VITALS (13 sets, daily range): BP systolic 88–135; BP diastolic 30–63
[2017-04-27] MEDS ORDERED: NS IV 1000 ML 1,000 ML IV ONE ×2 (11:05→12:07)
[2017-04-27 11:28] LABS: BASOPHILS % (AUTO) 0 % (0-10); EOSINOPHILS % (AUTO) 0 % (0-10); LYMPHOCYTES # (AUTO) 0.5 X 10^3 (1.0-4.0); LYMPHOCYTES % (AUTO) 5 % (12-44); MEAN CORPUSCULAR HEMOGLOBIN 24 PG (25-34); MEAN CORPUSCULAR HGB CONC 28 G/DL (32-36); MEAN CORPUSCULAR VOLUME 86 FL (80-99); MEAN PLATELET VOLUME 9.2 FL (7.4-10.4); MONOCYTES # (AUTO) 0.4 X 10^3 (0.0-1.0); MONOCYTES % (AUTO) 3 % (0-12); NEUTROPHILS # (AUTO) 9.6 X 10^3 (1.8-7.8); NEUTROPHILS % (AUTO) 92 % (42-75); PLATELET COUNT 326 10^3/uL (130-400); RED CELL DISTRIBUTION WIDTH 21.7 % (10.0-14.5); WHITE BLOOD COUNT 10.4 10^3/uL (4.3-11.0)
[2017-04-27 11:30] LABS: KETONES,URINE NEGATIVE (NEGATIVE); LEUKOCYTE ESTERASE ,URINE 3+ (NEGATIVE); NITRITE,URINE NEGATIVE (NEGATIVE); PH,URINE 5 (5-9); PROTEIN,URINE 3+ (NEGATIVE); UROBILINOGEN,URINE 1 MG/DL (NORMAL)
[2017-04-27] MEDS ORDERED: DAPS25TA2 PO (11:40)
[2017-04-27] MEDS ORDERED: HYDR-753 PO (11:40)
[2017-04-27] MEDS ORDERED: METO2.5T PO (11:40)
[2017-04-27] MEDS ORDERED: FURO-124 PO (11:40)
[2017-04-27] MEDS ORDERED: TAMS0.4C2 PO (11:40)
[2017-04-27] MEDS ORDERED: DIGO125T PO (11:40)
[2017-04-27] MEDS ORDERED: SAW500CA10 PO (11:40)
[2017-04-27] MEDS ORDERED: DILT180C64 PO (11:40)
[2017-04-27] MEDS ORDERED: LATA2.5D5 OP (11:40)
[2017-04-27] MEDS ORDERED: GLUC500C2 PO (11:40)
[2017-04-27] MEDS ORDERED: METO-270 PO (11:40)
[2017-04-27] MEDS ORDERED: MELA10TA PO (11:40)
[2017-04-27] MEDS ORDERED: MAG30ORA2 PO (11:40)
[2017-04-27 11:43] LABS: INR 1.4 (0.8-1.4); PROTHROMBIN TIME PATIENT 16.4 SEC (12.2-14.7)
[2017-04-27 11:47] LABS: BILIRUBIN,URINE 1+ (NEGATIVE); WBC,URINE 50-100 /HPF
[2017-04-27 11:48] LABS: CALCIUM OXALATE CRYSTALS,UR FEW /LPF
[2017-04-27 11:52] LABS: ALBUMIN 2.6 GM/DL (3.2-4.5); BILIRUBIN,TOTAL 1.1 MG/DL (0.1-1.0); CALCIUM 7.9 MG/DL (8.5-10.1); CREATININE SERUM 2.14 MG/DL (0.60-1.30); MAGNESIUM 2.3 MG/DL (1.8-2.4); POTASSIUM 4.5 MMOL/L (3.6-5.0); TOTAL PROTEIN 5.8 GM/DL (6.4-8.2)
[2017-04-27] MEDS ORDERED: fentaNYL INJECTION 100 MCG/2 ML AMP IVP STA ×2 (12:03→12:41)
[2017-04-27 12:08] LABS: BAND NEUTROPHILS 25 %; LYMPHOCYTES % (MANUAL) 5 %; NEUTROPHILS % (MANUAL) 68 %
[2017-04-27 12:10] LABS: ANISOCYTOSIS SLIGHT; HYPOCHROMASIA SLIGHT; POLYCHROMASIA SLIGHT; TEAR DROP CELLS SLIGHT
[2017-04-27] MEDS ORDERED: PANTOPRAZOLE 40 MG/10 ML (PROTONIX) VIAL IV ONE (12:15)
--- NOTE | 2017-04-27 12:23 | Diagnostic Imaging Report ---
EXAM: Portable erect AP chest at 11:42 a.m. INDICATION: Chest tightness. FINDINGS: The sternotomy wires and surgical clips and the left-sided pacemaker seen on the prior chest exam of 04/03/17 are again evident and no different. However, in the interval since the previous study, free air has developed below both hemidiaphragms. This is most likely due to the recent rupture of a hollow viscus. CT of the abdomen and pelvis would be recommended for further study. There also appears to be mild atelectasis/infiltrate in both lung bases and perhaps a small amount of fluid in the left. The upper lungs are clear. The mediastinum is not widened and the osseous structures are intact. IMPRESSION: 1. In the interval since the previous exam, a pneumoperitoneum has developed. This is most likely due to the recent rupture of a hollow viscus. CT of the abdomen and pelvis would be recommended for further study. 2. There is mild bibasilar atelectasis/infiltrate and a small left pleural effusion. 3. These results were called to Dr. Nereida Wheeler by Dr. Horowitz prior to dictation. CRITICAL FINDING Dictated by: Dictated on workstation # [id number]
--- NOTE | 2017-04-27 12:36 | Diagnostic Imaging Report ---
PROCEDURE: CT abdomen and pelvis without contrast. TECHNIQUE: Multiple contiguous axial images were obtained through the abdomen and pelvis without the use of intravenous contrast. INDICATION: Abdominal pain. FINDINGS: The chest exam performed prior to this study did note a pneumoperitoneum. On this exam, there is a sizable collection of gas along the anterior aspect of the abdomen. Most likely this is related to a recent rupture of a hollow viscus and given the size of pneumoperitoneum I suspect is secondary to a gastric ulcer perforation. There also appears to be a few drops of gas in the soft tissues about the stomach. In addition to the pneumoperitoneum, there is a moderate amount of dense fluid within the abdomen. This fluid may be slightly complicated by infection and/or hemorrhage. The liver does seem smaller than noted on the prior CT abdomen/pelvis exam of 07/14/12. The liver has a somewhat lobulated contour as well and the possibility that there is cirrhosis of the liver should be considered. The spleen, pancreas, adrenals, gallbladder, kidneys, aorta and inferior vena cava show no sign acute abnormality. The appendix was not well visualized. The bladder is decompressed by a De La Fuente catheter. The prostate gland does not seem to be enlarged. The bone windows show no sign of a fracture or of a destructive lesion. The images through the lung bases show there is mild atelectasis/infiltrate and a small amount of fluid in each lower lobe. There are also pleural calcifications bilaterally. These may be secondary to prior exposure to asbestos. CT of the chest is pending for further study. There is generalized increased density throughout the subcutaneous fat of the abdomen and pelvis. This does suggest anasarca. IMPRESSION: 1. There is a pneumoperitoneum. Most likely this is related to the rupture of a hollow viscus particularly a gastric ulcer perforation. 2. There is also a moderate amount of free fluid within the abdomen. This may be slightly complicated by infection and/or hemorrhage. 3. There is no acute abnormality of the abdomen or pelvis otherwise. 4. The increased density throughout the subcutaneous fat does suggest anasarca. These results were discussed with ER Dr. Nereida Wheeler by Dr. Horowitz prior to this dictation. Dictated by: Dictated on workstation # [id number]
[2017-04-27] MEDS ORDERED: LIDOCAINE 1% INJ 20 ML (XYLOCAINE) VIAL ONE ×2 (12:39→12:40)
[2017-04-27] MEDS ORDERED: BUPIVACAINE 0.5% 30 ML (SENSORCAINE) VIAL ONE (12:39)
--- NOTE | 2017-04-27 12:41 | Diagnostic Imaging Report ---
PROCEDURE: CT chest without contrast. TECHNIQUE: Multiple contiguous axial images were obtained through the chest without the use of intravenous contrast. INDICATION: Chest tightness. FINDINGS: The cardiomegaly, the coronary artery disease, the sternotomy wires, the surgical clips, and a left-sided pacemaker seen on the previous CT chest exam of 06/24/15 are again evident and no different. As noted on the CT abdomen/pelvis exam performed in conjunction with this study, there is atelectasis/infiltrate and a small amount of fluid in each lung base. The atelectasis/infiltrate in the left lung base has developed since the previous CT chest exam. The previous CT chest exam did note some loculated fluid in the fissure on the left. That findings again evident and does not appear to have changed significantly. The upper lungs are generally clear. There is no obvious mediastinal or hilar adenopathy. The aorta is not abnormally dilated. The prominent low density nodule on the inferior pole of the left lobe of the thyroid seen previously is again evident and no different. The bone windows show no sign of a fracture or of a destructive lesion. As seen with the CT abdomen/pelvis exam, there is generalized increased density throughout the subcutaneous fat of the thorax. Most likely this is related to anasarca. IMPRESSION: 1. There is cardiomegaly and coronary artery disease and evidence of prior cardiac surgery. There is also bibasal pneumonia/atelectasis and small bilateral pleural effusions. 2. The loculated fluid in the fissure on the left seen previously is again evident . 3. The increased density in the subcutaneous fat does suggest anasarca. Dictated by: Dictated on workstation # [id number]
[2017-04-27] MEDS ORDERED: HEParin (CENTRAL IV FLUSH) 500 UNIT/5 ML SYR ONE (12:57)
[2017-04-27] MEDS ORDERED: NS (IVPB) 250 ML ONE (13:01)
[2017-04-27] MEDS ORDERED: PIPERACILLIN/TAZO 4.5 GM VIAL (ZOSYN) IV ONE (13:01)
--- NOTE | 2017-04-27 13:01 | History & Physical-Surgical ---
History of Present Illness History of Present Illness Reason for visit/HPI Called by Dr. Wheeler In ED to evaluate patient for perforation. Seen and evaluated in ED CC: Abdominal pain 86 year old male who recently discharged from [facility] to [facility] present with abdominal pain since last night. Pain all over abdomen and severe. Woke him up from sleep. Tried pain medication without any help. Pain continued went to ER for further evaluation. He has history of CHF, Renal Failure, and recently diagnosed with ulcers at [facility]. During that stay his Hgb dropped and required blood transfusion. Patient today had a ct scan demonstrating free air from hollow viscus perforation likely stomach and lots of fluid throughout the abdomen. Patient used to be on blood thinner but not currently. Patient and understand he is extremely high risk and wish to proceed with surgery. Date of Admission T Date Seen by Provider: Apr 27, 2017 Time Seen by Provider: 12:50 I consulted on this patient on 04/27/17 12:56 Attending Physician Warner Espinoza DO Admitting Physician Nato Nash MD Consult Allergies and Home Medications Allergies Coded Allergies: KEELEY Inhibitors (Verified Allergy, Severe, wheezing and swelling in his throat with KEELEY inhibitors, 11/01/15) wheezing and swelling in his throat with KEELEY inhibitors atenolol (Verified Allergy, Severe, swelling throat, 11/01/15) swelling in his throat and wheezing with nonselective beta blockers. metoprolol (Verified Allergy, Severe, throat swelling and dry cough, ) throat swelling and dry cough Ctgpxqw-Ldg-Cjy Reductase Inhibitor (Unverified Allergy, Unknown, 11/01/15) Home Medications Dapsone 25 Mg Tablet, 25 MG PO, (Reported) Digoxin 125 Mcg Tablet, 125 MCG PO DAILY, (Reported) Diltiazem HCl 180 Mg Cap.er.24h, 180 MG PO, (Reported) Finasteride 5 Mg Tablet, 5 MG PO DAILY, (Reported) Furosemide 40 Mg Tablet, 40 MG PO, (Reported) Glucosamine Sulfate 500 Mg Capsule, 500 MG PO, (Reported) Hydrocodone/Acetaminophen 1 Each Tablet, 1 EACH PO, (Reported) Latanoprost 2.5 Ml Drops, 2.5 ML OP, (Reported) Mag Hydrox/Al Hydrox/Simeth 30 Ml Oral.susp, 30 ML PO QID PRN for INDIGESTION, ( Reported) Melatonin 10 Mg Tab.mphase, 10 MG PO, (Reported) Metolazone 2.5 Mg Tablet, 2.5 MG PO, (Reported) Metoprolol Succinate 25 Mg Tab.er.24h, 25 MG PO DAILY, (Reported) [place]-3/Dha/Epa/Fish Oil 1 Each Capsule, 1 CAP PO BID, (Reported) Saw [place] 500 Mg Capsule, 500 MG PO, (Reported) Tamsulosin HCl 0.4 Mg Cap.er.24h, 0.4 MG PO, (Reported) Ubidecarenone 100 Mg Capsule, 100 MG PO DAILY, (Reported) Past Zwtjtfx-Jcwwpj-Ynfilh Hx Patient Social History Alcohol Use: Denies Use Recreational Drug Use: No Smoking Status: Never a Smoker Former Smoker/When Quit: Mar 29, 1978 2nd Hand Smoke Exposure: No Recent Foreign Travel: No Contact w/Someone Who Travel: No Recent Infectious Disease Expo: No Recent Hopitalizations: No Immunizations Up To Date Tetanus Booster (TDap): Less than 5yrs PED Vaccines UTD: Yes Date of Pneumonia Vaccine: Sep 20, 2014 Date of Influenza Vaccine: Jul 27, 2015 Seasonal Allergies Seasonal Allergies: No Surgeries HX Surgeries: Yes (MITRAL VALVE REPAIR; CARDIAC CATHS--UNKNOWN NUMBER OF STENTS ) Surgeries: Appendectomy, Cardiac, CABG, Coronary Stent, Pacemaker, Valve Replacement Respiratory Hx Respiratory Disorders: No Respiratory Disorders: Sleep Apnea Cardiovascular Hx Cardiac Disorders: Yes (MITRAL VALVE PROLAPSE) Cardiac Disorders: Atrial Fibrillation, Chronic Edema/Swelling, Coronary Artery Disease, Heart Attack, Heart Murmur, Hypertension, Valvular Heart Disease Neurological Hx Neurological Disorders: No Neurological Disorders: Headaches /Migraines Reproductive System Hx Reproductive Disorders: No Sexually Transmitted Disease: No HIV/AIDS: No Genitourinary Hx Genitourinary Disorders: Yes (CHRONIC RENAL FAILURE) Genitourinary Disorders: Renal Failure Gastrointestinal Hx Gastrointestinal Disorders: No Gastrointestinal Disorders: Gastroesophageal Reflux, Polyps Musculoskeletal Hx Musculoskeletal Disorders: No Musculoskeletal Disorders: Arthritis Endocrine Hx Endocrine Disorders: No HEENT HX ENT Disorders: Yes HEENT Disorders: Cataract, Glaucoma Loss of Vision: Right Hearing Impairment: Denies Cancer Hx Cancer: No Psychosocial Hx Psychiatric Problems: No Integumentary HX Skin/Integumentary Disorder: No Blood Transfusions Hx Blood Disorders: No Adverse Reaction to a Blood Tr: No Family Medical History Significant Family History: No Pertinent Family Hx Family Medial History: Diabetes mellitus 19 MOTHER G8 SISTER FH: aneurysm FH: heart disease 19 MOTHER Prostate cancer 19 FATHER Constitutional: see HPI EENTM: no symptoms reported Respiratory: short of breath Cardiovascular: no symptoms reported Gastrointestinal: see HPI, abdominal pain Genitourinary: no symptoms reported Musculoskeletal: no symptoms reported Skin: change in color, other (edema) Psychiatric/Neurological: No Symptoms Reported Physical Exam Vital Signs Vital Sign - Last 12Hours 04/27/17 04/27/17 11:15 15:28 Temp 97.8 Pulse 116 Resp 30 B/P (MAP) 95/78 Pulse Ox 92 O2 Delivery Nasal Cannula O2 Flow Rate 3.00 FiO2 35 Capillary Refill : Less Than 3 Seconds General Appearance: Moderate Distress HEENT: Normal ENT Inspection Neck: Supple Respiratory: Other (tachypnea) Cardiovascular: Tachycardia Gastrointestinal: Distended, Guarding, Tenderness (diffuse and peritoneal) Rectal: Deferred Back: No Vertebral Tenderness Extremity: Pedal Edema (severe), Swelling (of upper and lower extremities with small wound diffusely) Neurologic/Psychiatric: Alert, Oriented x3 Skin: Other (wounds of exremities, severe edema) Comments ct scan reviewed and free air and fluid diffusely Data Review Labs Laboratory Tests 04/27/17 11:15: White Blood Count 10.4, Red Blood Count 3.70L, Hemoglobin 8.9L, Hematocrit 32L, Mean Corpuscular Volume 86, Mean Corpuscular Hemoglobin 24L, Mean Corpuscular Hemoglobin Concent 28L, Red Cell Distribution Width 21.7H, Platelet Count 326, Mean Platelet Volume 9.2, Neutrophils (%) (Auto) 92H, Lymphocytes (%) (Auto) 5L , Monocytes (%) (Auto) 3, Eosinophils (%) (Auto) 0, Basophils (%) (Auto) 0, Neutrophils # (Auto) 9.6H, Lymphocytes # (Auto) 0.5L, Monocytes # (Auto) 0.4, Eosinophils # (Auto) 0.0, Basophils # (Auto) 0.0, Neutrophils % (Manual) 68, Lymphocytes % (Manual) 5, Monocytes % (Manual) 2, Band Neutrophils 25, Polychromasia SLIGHT, Hypochromasia SLIGHT, Anisocytosis SLIGHT, Tear Drop Cells SLIGHT, Prothrombin Time 16.4H, INR Comment 1.4, Activated Partial Thromboplast Time 23L, Sodium Level 142, Potassium Level 4.5, Chloride Level 107 , Carbon Dioxide Level 21, Anion Gap 14, Blood Urea Nitrogen 40H, Creatinine 2.14H, Estimat Glomerular Filtration Rate 30, BUN/Creatinine Ratio 19, Glucose Level 147H, Lactic Acid Level 5.67*H, Calcium Level 7.9L, Magnesium Level 2.3, Total Bilirubin 1.1H, Aspartate Amino Transf (AST/SGOT) 32, Alanine Aminotransferase (ALT/SGPT) 24, Alkaline Phosphatase 133, Total Protein 5.8L, Albumin 2.6L, Amylase Level 26, Lipase 19, Digoxin Level 0.77L 04/27/17 11:20: Urine Color YELLOW, Urine Clarity VERY CLOUDYH, Urine pH 5, Urine Specific [place] 1.010L, Urine Protein 3+H, Urine Glucose (UA) NEGATIVE, Urine Ketones NEGATIVE, Urine Nitrite NEGATIVE, Urine Bilirubin 1+H, Urine Urobilinogen 1, Urine Leukocyte Esterase 3+H, Urine RBC (Auto) 5+H, Urine RBC NONE, Urine WBC 50 -100H, Urine Squamous Epithelial Cells NONE, Urine Crystals PRESENTH, Urine Calcium Oxalate Crystals FEWH, Urine Amorphous Sediment MOD LES URATESH, Urine Bacteria FEWH, Urine Casts NONE, Urine Mucus NEGATIVE, Urine Culture Indicated YES Assessment/Plan Assessment/Plan Assessment/Plan perforation of hollow viscus tachypnea and tachycardic sepsis secondary to hollow viscus perforation CHF renal failure patient high risk but need surgical intervention, discussed possible need for continue ventilator support after surgical intervention discussed risks and benefits of exploratory laparotomy all other indicated procedures, central line placement Will consult Roderick Murcia and Amairani Icu postop Careful fluid resuscitation due to Cardiac status Zosyn preop and likely add Vanc and Diflucan depending on findings. WARNER ESPINOZA DO Apr 27, 2017 13:01
[2017-04-27] MEDS ORDERED: SEVOFLURANE (ULTANE) 15 ML INHAL SOLN ONE ×5 (13:03→14:46)
[2017-04-27] MEDS ORDERED: ROCURONIUM 50 MG/5 ML (ZEMURON) VIAL IV ONE ×2 (13:03→13:20)
[2017-04-27] MEDS ORDERED: NS IV 1000 ML 1,000 ML ONE ×2 (13:03→15:00)
[2017-04-27] MEDS ORDERED: ETOMIDATE IV SOLN 20 MG/10 ML VIAL ONE (13:03)
[2017-04-27] MEDS ORDERED: LACTATED RINGERS 0 ML IV ONE (13:03)
[2017-04-27] MEDS ORDERED: fentaNYL INJECTION 100 MCG/2 ML AMP ONE ×2 (13:03→14:45)
[2017-04-27] MEDS ORDERED: MIDAZOLAM 2 MG/2 ML (VERSED) VIAL ONE (13:04)
[2017-04-27] MEDS ORDERED: PHENYLEPHRINE 100 MCG/ML 10 ML (ANESTHESIA) SYR ONE ×2 (13:20→14:46)
[2017-04-27] MEDS ORDERED: HEParin 1000 UNIT/ML (10ML VIAL) FOR BOLUS ONE (14:08)
[2017-04-27] MEDS ORDERED: morphine INJ 10 MG/ML 1ML (SYR OR VIAL) ONE ×2 (14:44→17:46)
[2017-04-27] MEDS ORDERED: ONDANSETRON 4 MG/2 ML (SDV) Z0FRAN ONE (14:45)
[2017-04-27] MEDS ORDERED: PIPERACILLIN SODIUM/TAZOBACTAM 4.5 GM in NS (IVPB) 100 ML IV NR (15:00)
[2017-04-27] MEDS ORDERED: VANCOMYCIN INJECTION 0.1 MG in NS (IVPB) 250 ML IV SCH (15:00)
[2017-04-27] MEDS ORDERED: VANCOMYCIN 1,750 MG/NS 500 ML IVPB IV NR ×2 (15:30)
[2017-04-27] MEDS ORDERED: PROPOFOL DRIP (ICU) 100 ML IV ONE (15:38)
--- NOTE | 2017-04-27 15:43 | Progress Note-Post Operative ---
Post-Operative Progess Note Surgeon (s)/Acetylene Torch Burner (s) Surgeon WILBER ESPINOZA DO Acetylene Torch Burner: na Pre-Operative Diagnosis hollow viscus perforation Post-Operative Diagnosis duodenal perforation Procedure & Operative Findings Date of Procedure 04/27/17 Procedure Performed/Findings right IJV central line using u/s guidance, exploratory laparotomy biopsy duodenal perforation site, sheldon patch repair of duodenal perforation washout and drain placement Anesthesia Type general Estimated Blood Loss Estimated blood loss (mL): minimal Specimens/Packing Specimens Removed duodenal perforation site, abdominal fluid cultures Packing: wet to dry midline incision WILBER ESPINOZA DO Apr 27, 2017 15:43
[2017-04-27] MEDS: PROPOFOL DRIP (ICU) 100 ML IV SCH ×2 (15:45→22:13)
[2017-04-27] MEDS ORDERED: morphine INJ 10 MG/ML 1ML (SYR OR VIAL) IVP PRN (15:45)
[2017-04-27] MEDS ORDERED: NS IV 500 ML 500 ML ONE (15:45)
--- NOTE | 2017-04-27 15:51 | Consultation-Cardiology ---
HPI-Cardiology Cardiology Consultation Date of Consultation 04/27/17 Date of Admission Time Seen by Provider: 15:50 Indication: coronary artery disease, Sepsis HPI 86 years old gentleman with extensive cardiac history which would be discussed below. Was in [facility] recently, had peptic ulcer disease and renal failure. Started having abdominal pain which was worsening came into the emergency room and he had an acute abdomen, he was taken for emergency surgery. Had duodenal ulcer perforated. I was called for cardiac management postoperatively. He is sedated. Intubated. Unable to provide any history. History was obtained by reviewing his record and evaluating the patient Home Medications & Allergies Allergies: Coded Allergies: KEELEY Inhibitors (Verified Allergy, Severe, wheezing and swelling in his throat with KEELEY inhibitors, 11/01/15) wheezing and swelling in his throat with KEELEY inhibitors atenolol (Verified Allergy, Severe, swelling throat, 11/01/15) swelling in his throat and wheezing with nonselective beta blockers. metoprolol (Verified Allergy, Severe, throat swelling and dry cough, ) throat swelling and dry cough Lgvrsxm-Hqj-Xib Reductase Inhibitor (Unverified Allergy, Unknown, 11/01/15) Home Medication List Reviewed: Yes TNN-Zylicy-Ldsjcr Hx Patient Social History Employed/Student: retired Alcohol Use: Denies Use Recreational Drug Use: No Smoking Status: Never a Smoker Former smoker/When Quit: Mar 29, 1978 2nd Hand Smoke Exposure: No Recent Foreign Travel: No Recent Infectious Disease Expo: No Recent Hopitalizations: No Immunizations Up To Date Tetanus Booster (TDap): Less than 5yrs Date of Pneumonia Vaccine: Sep 20, 2014 Date of Influenza Vaccine: Jul 27, 2015 Past Medical History past medical history as discussed below Family Medical History Significant Family History: No Pertinent Family Hx Family History: 19 FATHER Prostate cancer 19 MOTHER Diabetes mellitus FH: heart disease G8 SISTER Diabetes mellitus Relation not specified for: FH: aneurysm Constitutional: other (sedated and intubated, unable to provide review of system. History of present illness discussed his abdominal pain) Reviewed Test Results Reviewed Test Results Lab Laboratory Tests Test 04/27/17 11:15 04/27/17 11:20 Range/Units White Blood Count 10.4 4.3-11.0 10^3/uL Red Blood Count 3.70 L 4.35-5.85 10^6/uL Hemoglobin 8.9 L 13.3-17.7 G/DL Hematocrit 32 L 40-54 % Mean Corpuscular Volume 86 80-99 FL Mean Corpuscular Hemoglobin 24 L 25-34 PG Mean Corpuscular Hemoglobin Concent 28 L 32-36 G/DL Red Cell Distribution Width 21.7 H 10.0-14.5 % Platelet Count 326 130-400 10^3/uL Mean Platelet Volume 9.2 7.4-10.4 FL Neutrophils (%) (Auto) 92 H 42-75 % Lymphocytes (%) (Auto) 5 L 12-44 % Monocytes (%) (Auto) 3 0-12 % Eosinophils (%) (Auto) 0 0-10 % Basophils (%) (Auto) 0 0-10 % Neutrophils # (Auto) 9.6 H 1.8-7.8 X 10^3 Lymphocytes # (Auto) 0.5 L 1.0-4.0 X 10^3 Monocytes # (Auto) 0.4 0.0-1.0 X 10^3 Eosinophils # (Auto) 0.0 0.0-0.3 10^3/uL Basophils # (Auto) 0.0 0.0-0.1 10^3/uL Neutrophils % (Manual) 68 % Lymphocytes % (Manual) 5 % Monocytes % (Manual) 2 % Band Neutrophils 25 % Polychromasia SLIGHT Hypochromasia SLIGHT Anisocytosis SLIGHT Tear Drop Cells SLIGHT Prothrombin Time 16.4 H 12.2-14.7 SEC INR Comment 1.4 0.8-1.4 Activated Partial Thromboplast Time 23 L 24-35 SEC Sodium Level 142 135-145 MMOL/L Potassium Level 4.5 3.6-5.0 MMOL/L Chloride Level 107 98-107 MMOL/L Carbon Dioxide Level 21 21-32 MMOL/L Anion Gap 14 5-14 MMOL/L Blood Urea Nitrogen 40 H 7-18 MG/DL Creatinine 2.14 H 0.60-1.30 MG/DL Estimat Glomerular Filtration Rate 30 BUN/Creatinine Ratio 19 Glucose Level 147 H 70-105 MG/DL Lactic Acid Level 5.67 *H 0.50-2.00 MMOL/L Calcium Level 7.9 L 8.5-10.1 MG/DL Magnesium Level 2.3 1.8-2.4 MG/DL Total Bilirubin 1.1 H 0.1-1.0 MG/DL Aspartate Amino Transf (AST/SGOT) 32 5-34 U/L Alanine Aminotransferase (ALT/SGPT) 24 0-55 U/L Alkaline Phosphatase 133 40-136 U/L Total Protein 5.8 L 6.4-8.2 GM/DL Albumin 2.6 L 3.2-4.5 GM/DL Amylase Level 26 25-125 U/L Lipase 19 8-78 U/L Digoxin Level 0.77 L 0.80-2.00 NG/ML Urine Color YELLOW Urine Clarity VERY CLOUDY H Urine pH 5 5-9 Urine Specific [place] 1.010 L 1.016-1.022 Urine Protein 3+ H NEGATIVE Urine Glucose (UA) NEGATIVE NEGATIVE Urine Ketones NEGATIVE NEGATIVE Urine Nitrite NEGATIVE NEGATIVE Urine Bilirubin 1+ H NEGATIVE Urine Urobilinogen 1 NORMAL MG/DL Urine Leukocyte Esterase 3+ H NEGATIVE Urine RBC (Auto) 5+ H NEGATIVE Urine RBC NONE /HPF Urine WBC 50-100 H /HPF Urine Squamous Epithelial Cells NONE /HPF Urine Crystals PRESENT H /LPF Urine Calcium Oxalate Crystals FEW H /LPF Urine Amorphous Sediment MOD LES URATES H /LPF Urine Bacteria FEW H /HPF Urine Casts NONE /LPF Urine Mucus NEGATIVE /LPF Urine Culture Indicated YES Physical Exam Vital Signs Vital Sign - Last 12Hours 04/27/17 04/27/17 11:15 15:28 Temp 97.8 Pulse 116 Resp 30 B/P (MAP) 95/78 Pulse Ox 92 O2 Delivery Nasal Cannula O2 Flow Rate 3.00 FiO2 35 Capillary Refill : Less Than 3 Seconds General Appearance: WD/WN, Severe Distress Eyes: Bilateral Eye EOMI, Bilateral Eye Normal Inspection, Bilateral Eye PERRL HEENT: Normal ENT Inspection, Other (intubated) Neck: Normal Inspection, Supple Respiratory: Crackles, Decreased Breath Sounds, Other (intubated) Cardiovascular: Regular Rate, Rhythm, No Gallop, Systolic Murmur, Other ( extensive edema) Gastrointestinal: Other (postoperative finding the abdomen, absent bowel sound) Back: Normal Inspection Extremity: No Calf Tenderness, Pedal Edema (upper and lower extremities edema, wraps around the lower extremities) Neurologic/Psychiatric: Other (sedated and intubated) Skin: Normal Color, Warm/Dry Lymphatic: No Adenopathy A/P-Cardiology Admission Diagnosis Sepsis Coronary artery disease Congestive heart failure Atrial fibrillation Assessment/Plan Sepsis, perforated viscus, duodenal ulcer, postoperative a number 0. Underwent emergency surgery, currently intubated and sedated. Acute respiratory failure, ventilator dependent. Managed by woolen tester. Acute on chronic congestive heart failure, left ventricular systolic and diastolic dysfunction, chronic decompensation, extensive edema, received large amount of fluid at this time, Echo of 01/15/17 showed dilated cm with LVEF 40-45 %, AoV sclerosis and MAC without valvular stenosis, mild MR, mod TR, PASP 50 mmHg, continue to monitor closely. I will reevaluate 2-D echocardiogram. Coronary artery disease, history of CABG 1 using [place], mitral valve repair done about 10 years ago at , [facility] of 12/25/16: basal inf infarction with minimal periinfarct ischemia, posterobasal darci, LVEF 22%, mild to mod cardiomegaly. RVG of 01/08/17 showed LVEF 21%, reevaluate 2-D echocardiogram Anasarca, upper and lower extremity edema, probably secondary to congestive heart failure in addition to renal failure. Continue to monitor at this time, patient is intubated. 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 Yoder's record, details unknown. Patient reports that it was placed by Dr. Velazco at [facility] and d/t leads not functioning the device was "turned off" by Dr Leonard at [facility] in 2014. It is not functioning, according to the patient Chronic atrial fibrillation - rate controlled, continue to monitor, I will evaluate 12-lead EKG Warfarin for stroke prophylaxis, currently INR is 1, probably patient was not taking Coumadin or it was discontinued when he was at [facility]. Reported intolerance to statin, KEELEY (-) and ARB in the past, allergy to atenolol and metoprolol and beta blockers. COPD, CHAD - followed by Dr. Phillips CKD stage 4 - he is following with his slasher tender helper, Dr Mejia, slight improvement in his kidney function compared to the last evaluation in the emergency room last month. Continue to monitor renal function closely. Anemia, monitor H&H ZOLTAN RICHTER MD Apr 27, 2017 15:51
--- NOTE | 2017-04-27 16:00 | Diagnostic Imaging Report ---
INDICATION Line placement. TECHNIQUE: Single view chest, 3:32 p.m. CORRELATION STUDY: 04/27/2017. FINDINGS: Since the prior imaging, a central has been placed via the neck on the right. Tip is somewhat obscured by the pacemaker leads. Tip, however, appears to be likely over the lower SVC. A left-sided pacemaker is unchanged. Endotracheal tube and gastric tube have also been placed since the prior study. Tip of the ET tube is superimposed over the trachea at the level of the clavicles. Gastric tube passes below the left hemidiaphragm. Heart size and mediastinum are generally stable. Vasculature remains mildly prominent. Pleural effusions along with atelectasis or infiltrate at the lung bases do remain. Previously noted free air below the diaphragms is not well appreciated on the current study. IMPRESSION: 1. Interval intubation, placement of a gastric tube and right-sided central line. 2. Previously noted free air is not demonstrated currently. 3. Small pleural effusions and bibasilar areas of atelectasis and/or infiltrate are present. Dictated by: Dictated on workstation # [id number]
[2017-04-27] MEDS: PANTOPRAZOLE INJECTION 200 MG in NS (IVPB) 50 ML IV SCH (16:08)
[2017-04-27] MEDS ORDERED: NS IV 1000 ML 1,000 ML IV SCH ×2 (17:00→19:45)
[2017-04-27] MEDS: NS IV 1000 ML 1,000 ML IV SCH ×3 (17:04→21:35)
[2017-04-27 17:12] LABS: ABG BASE EXCESS -1.5 MMOL/L (-2.5-2.5); ABG HCO3 22 MMOL/L (23-27); ABG OXYGEN SATURATION 99 % (94-100); ABG PCO2 33 MMHG (35-45); ABG PH 7.44 (7.37-7.43); ABG PO2 86 MMHG (79-93); ABG TCO2 23.3 MMOL/L (21.0-31.0)
[2017-04-27 17:14] LABS: ALLENS TEST ART LINE; PATIENT TEMP 96.8
[2017-04-27] MEDS ORDERED: morphine INJ 4 MG/ML 1 ML (VIAL/SYRINGE) IVP PRN (17:15)
[2017-04-27] MEDS ORDERED: D5W 250 ML (IVPB) 250 ML IV ONE (17:33)
[2017-04-27] MEDS ORDERED: NOREPINEPHRINE 4 MG/4 ML (LEVOPHED) AMP IV ONE (17:33)
[2017-04-27] MEDS: NOREPINEPHRINE 4 MG in D5W 250 ML (IVPB) 250 ML IV SCH (17:48)
[2017-04-27] MEDS ORDERED: fentaNYL (OMNICELL DRIP KIT ONLY) 250 MCG/5 ML AMP ONE (18:01)
[2017-04-27] MEDS ORDERED: NS (IVPB) 100 ML ONE (18:01)
[2017-04-27] MEDS: fentaNYL INJECTION 1,250 MCG in NS (IVPB) 225 ML IV SCH (18:16)
[2017-04-27 18:53] LABS: BASOPHILS % (AUTO) 0 % (0-10); EOSINOPHILS % (AUTO) 0 % (0-10); LYMPHOCYTES # (AUTO) 0.7 X 10^3 (1.0-4.0); LYMPHOCYTES % (AUTO) 9 % (12-44); MEAN CORPUSCULAR HEMOGLOBIN 25 PG (25-34); MEAN CORPUSCULAR HGB CONC 29 G/DL (32-36); MEAN CORPUSCULAR VOLUME 86 FL (80-99); MEAN PLATELET VOLUME 9.3 FL (7.4-10.4); MONOCYTES # (AUTO) 0.3 X 10^3 (0.0-1.0); MONOCYTES % (AUTO) 4 % (0-12); NEUTROPHILS # (AUTO) 6.9 X 10^3 (1.8-7.8); NEUTROPHILS % (AUTO) 87 % (42-75); PLATELET COUNT 213 10^3/uL (130-400); RED BLOOD COUNT 3.73 10^6/uL (4.35-5.85); RED CELL DISTRIBUTION WIDTH 20.8 % (10.0-14.5); WHITE BLOOD COUNT 7.9 10^3/uL (4.3-11.0)
[2017-04-27 19:13] LABS: CALCIUM 6.7 MG/DL (8.5-10.1); CREATININE SERUM 1.82 MG/DL (0.60-1.30); POTASSIUM 3.9 MMOL/L (3.6-5.0); TOTAL PROTEIN 4.3 GM/DL (6.4-8.2)
[2017-04-27] MEDS: PIPERACILLIN SODIUM/TAZOBACTAM 4.5 GM in NS (IVPB) 100 ML IV SCH (21:12)
[2017-04-28] VITALS (34 sets, daily range): BP systolic 101–151; BP diastolic 37–76
--- NOTE | 2017-04-28 01:32 | OPERATIVE REPORT ---
PROCEDURE PHYSICIAN: WILBER ESPINOZA DATE OF PROCEDURE: 04/27/2017 PREOPERATIVE DIAGNOSIS: Hollow viscus perforation. POSTOPERATIVE DIAGNOSIS: Duodenal perforation. PROCEDURE: 1. Right internal jugular vein central line using ultrasound guidance. 2. Exploratory laparotomy with biopsy of duodenal perforation slight, Idris patch repair of duodenal perforation, washout and drain placement. ANESTHESIA: General. ESTIMATED BLOOD LOSS: Minimal. COMPLICATIONS: None. INDICATIONS: The patient is an 86-year-old male who came to the emergency department with abdominal pain. He was found to have free air and a lot of fluid within the abdomen. The patient with extensive cardiac and renal disease. The patient and the patient's family understand the risks and benefits of the procedure and wish to proceed with the procedure. Consent was signed on the chart. PROCEDURE: The patient was taken operating suite. He was prepped and draped in sterile fashion. A surgical pause was performed. Using ultrasound, the right internal jugular vein was located. Under visualization, the right internal jugular vein was accessed. Dark nonpulsatile blood was withdrawn. The guidewire was inserted without difficulty. The needle was removed. A small skin incision was made with an 11 blade scalpel at the insertion point of the wire. The dilator sheath was advanced and removed over the wire. The triple lumen catheter was inserted over the wire and the wire was removed. All ports were accessed and flushed without difficulty. The area was then washed and dried and sterile bandage was applied. At this time the abdomen was then prepped and draped. A midline incision was made superior to the umbilicus. Upon entering the abdomen, a large amount of fluid erupted, cultures were obtained. Two liters of fluid were suctioned out. The stomach had normal appearance just past the stomach on the duodenum, there was a perforation of approximately 1 cm in diameter. There is little bit of appearance of necrotic tissue around this area as well. A biopsy of the perforation site was obtained. Using 3-0 silk sutures. The perforation site was closed. Copious amounts of irrigation were used to irrigate the abdomen. A piece of omentum was brought up and then secured forming Idris patch at the site of perforation. Two stab incisions; one in the right lower quadrant and one in the left lower quadrant. Two 19 Kyle drains were placed. The one on the right side was brought up into the right gutter and next to the duodenum at the site of perforation. The left drain was placed down into the pelvis. Again, copious amounts of irrigation was used to irrigate the abdomen. The small bowel and colon had normal appearance. NG tube was placed into the stomach and secured. Drains were secured with 2-0 silk sutures. The fascia was then closed using 1-0 loop PDS. The tail was then tied down to the fascia using 3-0 Vicryl. The skin was then slightly mobilized. The wound was then irrigated with copious amounts of irrigation. A wet to dry dressing was applied. The patient was taken to the Intensive Care Unit for further management. The patient has extensive comorbidities. The patient understands the high risk and guarded condition. The patient has been left on the ventilator. Dr. Phillips, Amairani, and Roderick on consultation. Job ID: [id number] Dictated Date: 04/27/2017 15:55:41 Riprap Worker Date: 04/28/2017 01:18:20 / lizeth
[2017-04-28] MEDS ORDERED: D5W 250 ML (IVPB) 250 ML IV ONE ×2 (02:42→10:05)
[2017-04-28] MEDS ORDERED: NOREPINEPHRINE 4 MG/4 ML (LEVOPHED) AMP IV ONE ×2 (02:42→10:05)
[2017-04-28] MEDS: PROPOFOL DRIP (ICU) 100 ML IV SCH ×4 (04:19→21:17)
[2017-04-28] MEDS: PIPERACILLIN SODIUM/TAZOBACTAM 4.5 GM in NS (IVPB) 100 ML IV SCH ×3 (04:38→21:32)
[2017-04-28 04:43] LABS: ABG BASE EXCESS -3.3 MMOL/L (-2.5-2.5); ABG HCO3 21 MMOL/L (23-27); ABG OXYGEN SATURATION 99 % (94-100); ABG PCO2 35 MMHG (35-45); ABG PO2 97 MMHG (79-93)
[2017-04-28 04:44] LABS: BASOPHILS % (AUTO) 0 % (0-10); EOSINOPHILS % (AUTO) 0 % (0-10); LYMPHOCYTES # (AUTO) 0.9 X 10^3 (1.0-4.0); LYMPHOCYTES % (AUTO) 7 % (12-44); MEAN CORPUSCULAR HEMOGLOBIN 25 PG (25-34); MEAN CORPUSCULAR HGB CONC 30 G/DL (32-36); MEAN CORPUSCULAR VOLUME 84 FL (80-99); MEAN PLATELET VOLUME 9.6 FL (7.4-10.4); MONOCYTES # (AUTO) 0.6 X 10^3 (0.0-1.0); MONOCYTES % (AUTO) 4 % (0-12); NEUTROPHILS # (AUTO) 11.5 X 10^3 (1.8-7.8); NEUTROPHILS % (AUTO) 89 % (42-75); PLATELET COUNT 286 10^3/uL (130-400); RED BLOOD COUNT 4.06 10^6/uL (4.35-5.85); RED CELL DISTRIBUTION WIDTH 21.2 % (10.0-14.5); WHITE BLOOD COUNT 12.9 10^3/uL (4.3-11.0)
[2017-04-28 04:51] LABS: ALLENS TEST ART LINE
[2017-04-28 04:52] LABS: PATIENT TEMP 97.2
[2017-04-28 05:15] LABS: INR 1.8 (0.8-1.4); PROTHROMBIN TIME PATIENT 20.3 SEC (12.2-14.7)
[2017-04-28] MEDS: NS IV 1000 ML 1,000 ML IV SCH ×3 (05:22→20:27)
[2017-04-28 05:28] LABS: BILIRUBIN,TOTAL 1.8 MG/DL (0.1-1.0); CALCIUM 7.1 MG/DL (8.5-10.1); CREATININE SERUM 1.82 MG/DL (0.60-1.30); PHOSPHORUS 3.3 MG/DL (2.3-4.7); POTASSIUM 3.9 MMOL/L (3.6-5.0); TOTAL PROTEIN 4.8 GM/DL (6.4-8.2)
[2017-04-28 05:53] LABS: THYROID STIMULATING HORMONE 1.36 UIU/ML (0.35-4.94)
[2017-04-28 05:56] LABS: TROPONIN I 1.49 NG/ML (<0.30)
[2017-04-28] MEDS: MAGNESIUM 1 GM/100 ML IVPB 100 ML IV SCH (05:59)
[2017-04-28] MEDS: POTASSIUM CL 10MEQ/50ML IVPB 50 ML IV SCH (05:59)
[2017-04-28] MEDS: KCL 20 MEQ TAB (K-DUR) PO SCH (05:59)
--- NOTE | 2017-04-28 07:34 | Anesthesia-General Post-Op ---
General Patient Condition Mental Status/LOC: Unreactive Cardiovascular: Satisfactory Nausea/Vomiting: Absent Respiratory: Unsatisfactory Pain: Controlled Complications: Absent Post Op Complications Complications None Follow Up Care/Instructions Patient Instructions None needed. Anesthesia/Patient Condition Patient Condition SANDY DUNNE CRNA Apr 28, 2017 07:34
[2017-04-28] MEDS: FLUCONAZOLE 200 MG/100 ML 100 ML IV SCH (08:19)
--- NOTE | 2017-04-28 09:55 | Cardiology Progress Note ---
Subjective Date Seen by Provider: Apr 28, 2017 Time Seen by Provider: 09:49 Subjective/Events-last exam patient is sedated and intubated, has been having poor urine output and borderline low blood pressure, maintain on pressors Review of Systems General: Other (sedated and intubated, unable to provide review of systems) Objective-Cardiology Exam Last Set of Vital Signs Vital Signs 04/28/17 04/28/17 04/28/17 08:00 08:08 09:00 Temp 97.2 Pulse 60 Resp 10 B/P (MAP) 137/73 Pulse Ox 97 O2 Delivery Mechanical Ventilator O2 Flow Rate 21.00 FiO2 30 Capillary Refill : Less Than 3 Seconds I&O Bad tableGeneral: Severe Distress, Other (sedated and intubated) HEENT: Atraumatic, EOMI Neck: Supple, No Thyromegaly Lungs: Other (bilateral rhonchi, intubated) Heart: Normal S1, Normal S2, Other (systolic murmur at the left sternal border) Abdomen: Other (postoperative, diminished bowel sound) Extremities: Other (anasarca, upper and lower extremity edema) Skin: Other (abdominal surgery) Neuro: Other (sedated and intubated) Psych/Mental Status: Other (sedated and intubated) Results Lab Laboratory Tests 04/27/17 11:15 04/27/17 18:41 04/28/17 04:30 A/P-Cardiology Admission Diagnosis Sepsis Coronary artery disease Congestive heart failure Atrial fibrillation Assessment/Plan Sepsis, perforated bowel, postoperative day number 1, managed by Dr. Phillips. Septic shock, hypotensive shock, poor urine output, maintained on pressors, continue with IV fluid at this time and monitor blood pressure, the next stage will start on diuretics. Acute respiratory failure, ventilator dependent. Managed by supervisor wound. Acute on chronic congestive heart failure, left ventricular systolic and diastolic dysfunction, chronic decompensation, extensive edema, echo showed ejection fraction 35-40 percent, continue with IV fluid at this time until his blood pressure is more stable then start diuretics. Non-ST elevation myocardial infarction, elevated troponin level, probably due to underlying coronary artery disease and sepsis with septic shock. Conservative management for now. Continue to monitor the trend of troponin Coronary artery disease, history of CABG 1 using [place], mitral valve repair done about 10 years ago at , [facility] of 12/25/16: basal inf infarction with minimal periinfarct ischemia, posterobasal darci, LVEF 22%, mild to mod cardiomegaly. RVG of 01/08/17 showed LVEF 21%, reevaluate 2-D echocardiogram Anasarca, upper and lower extremity edema, probably secondary to congestive heart failure in addition to renal failure, still having fluid shift with third spacing, continue with IV fluid until his blood pressure is stable then start diuretics Pulmonary hypertension secondary to sleep apnea, PA pressure of 50 mmHg PPM - per Dr. Yoder's record, details unknown. Patient reports that it was placed by Dr. Velazco at [facility] and d/t leads not functioning the device was "turned off" by Dr Leonard at [facility] in 2014. It is not functioning, according to the patient Chronic atrial fibrillation - rate controlled, continue to monitor, I will evaluate 12-lead EKG Warfarin for stroke prophylaxis, currently INR is 1, probably patient was not taking Coumadin or it was discontinued when he was at [facility]. Reported intolerance to statin, KEELEY (-) and ARB in the past, allergy to atenolol and metoprolol and beta blockers. COPD, CHAD - followed by Dr. Phillips CKD stage 4 - he is following with his registered associate, Dr Mejia, slight improvement in his kidney function compared to the last evaluation in the emergency room last month. Continue to monitor renal function closely. Anemia, monitor H&H Clinical Quality Measures DVT/VTE Risk/Contraindication: Risk Factor Score Per Nursin RFS Level Per Nursing on Admit: 4+=Very High ZOLTAN RICHTER MD Apr 28, 2017 09:55
[2017-04-28] MEDS: NOREPINEPHRINE 4 MG in D5W 250 ML (IVPB) 250 ML IV SCH ×3 (10:17→21:06)
--- NOTE | 2017-04-28 10:39 | Diagnostic Imaging Report ---
INDICATION: Dyspnea. TECHNIQUE: Single view chest 5:23 a.m. CORRELATION STUDY: 04/27/2017 FINDINGS: Endotracheal tube, gastric tube and right IJ central line remain in place. There has been development of significant right lung volume loss with shift of the mediastinal structures into the right hemithorax. Consolidation of the right lung base along with right pleural effusion. Left lung relatively hyperinflated. There is a rounded area of increased density of the left mid lung. Heart size and vasculature generally stable. IMPRESSION: 1. Development of significant right lung volume loss could be reflective of underlying atelectasis perhaps from mucous plugging. Superimposed infiltrate would be difficult to exclude. Right pleural effusion likely relatively stable. Followup imaging recommended. Dictated by: Dictated on workstation # [id number]
--- NOTE | 2017-04-28 12:05 | Consultation-Hospitalist ---
HPI History of Present Illness: HPI/Chief Complaint CC: Medical management following perforated ulcer and now vent dependent HPI: This is a 86-year-old white male that was recently discharged from [facility] due to acute renal failure and ulcers that had just moved to skilled therapy at [facility] that presented to the emergency room found to have findings consistent with perforated ulcers so he was urgently taken to surgery family reverse decision of DO NOT RESUSCITATE and placed him back on full code and currently he is ventilator dependent. At this current time no family at the bedside and I had talked to Dr. Son and the ICU nurse regarding details of this case. Patient appears to be in very end-stage of his life and will have palliative care consult tomorrow. Source: RN/MD Exam Limitations: clinical condition (intubated) Date Seen 04/28/17 Attending Physician Warner Son DO PCP Nato Nash MD Referring Physician Date of Admission Apr 27, 2017 at 14:58 Home Medications & Allergies Home Medications Reviewed patient Home Medication Reconciliation Form Allergies Allergies Coded Allergies KEELEY Inhibitors (Verified Allergy, Severe, wheezing and swelling in his throat with KEELEY inhibitors, 11/01/15) wheezing and swelling in his throat with KEELEY inhibitors atenolol (Verified Allergy, Severe, swelling throat, 11/01/15) swelling in his throat and wheezing with nonselective beta blockers. metoprolol (Verified Allergy, Severe, throat swelling and dry cough, 11/01/15) throat swelling and dry cough Zudjuzt-Tlv-Zyc Reductase Inhibitor (Unverified Allergy, Unknown, 11/01/15) Past Ekrtnwv-Ryiwzx-Lwiwys Hx Patient Social History Marrital Status: Employed/Student: retired Alcohol Use: Denies Use Recreational Drug Use: No Smoking Status: Never a Smoker Former smoker/When Quit: Mar 29, 1978 2nd Hand Smoke Exposure: No Physical Abuse Screen: No Sexual Abuse: No Recent Foreign Travel: No Contact w/other who traveled: No Recent Hopitalizations: No Recent Infectious Disease Expo: No Immunizations Up To Date Tetanus Booster (TDap): Less than 5yrs Date of Pneumonia Vaccine: Sep 20, 2014 Date of Influenza Vaccine: Jul 27, 2015 Seasonal Allergies Seasonal Allergies: No Surgeries HX Surgeries: Yes (MITRAL VALVE REPAIR; CARDIAC CATHS--UNKNOWN NUMBER OF STENTS ) Surgeries: Appendectomy, Cardiac, CABG, Coronary Stent, Pacemaker, Valve Replacement Respiratory Hx Respiratory Disorders: No Cardiovascular Hx Cardiovascular Disorders: Yes (MITRAL VALVE PROLAPSE) Cardiac Disorders: Atrial Fibrillation, Chronic Edema/Swelling, Coronary Artery Disease, Heart Attack, Heart Murmur, Hypertension, Valvular Heart Disease Neurological Hx Neurological Disorders: No Neurological Disorders: Headaches /Migraines Reproductive System Hx Reproductive Disorders: No Sexually Transmitted Disease: No HIV/AIDS: No Genitourinary Hx Genitourinary Disorders: Yes (CHRONIC RENAL FAILURE) Genitourinary Disorders: Renal Failure Gastrointestinal Hx Gastrointestinal Disorders: No Gastrointestinal Disorders: Gastroesophageal Reflux, Polyps Musculoskeletal Hx Musculoskeletal Disorders: No Musculoskeletal Disorders: Arthritis Endocrine Hx Endocrine Disorders: No HEENT HX ENT Disorders: Yes HEENT Disorders: Cataract, Glaucoma Loss of Vision: Right Hearing Impairment: Denies Cancer Hx Cancer: No Psychosocial Hx Psychiatric Problems: No Integumentary HX Skin/Integumentary Disorder: No Blood Transfusions Hx Blood Disorders: No Adverse Reaction to a Blood Tr: No Family Medical History Significant Family History: No Pertinent Family Hx Family Hx: Diabetes mellitus 19 MOTHER G8 SISTER FH: aneurysm FH: heart disease 19 MOTHER Prostate cancer 19 FATHER Review of Systems ROS-Unable to Obtain: intubated Constitutional: see HPI Physical Exam Physical Exam Vital Signs Vital Sign - Last 12Hours 04/27/17 04/27/17 11:15 15:28 Temp 97.8 Pulse 116 Resp 30 B/P (MAP) 95/78 Pulse Ox 92 O2 Delivery Nasal Cannula O2 Flow Rate 3.00 FiO2 35 Capillary Refill : Less Than 3 Seconds General Appearance: WD/WN, Chronically ill, Obese Respiratory: No Accessory Muscle Use, No Respiratory Distress, Other (on ventilator) Cardiovascular: Regular Rate, Rhythm Gastrointestinal: Abnormal Bowel Sounds, Distended Extremity: Pedal Edema Neurologic/Psychiatric: Other (sedated) Skin: Mottled, Pallor Results Results/Procedures Lab Laboratory Tests 04/27/17 11:15 04/27/17 18:41 04/28/17 04:30 Assessment/Plan Admission Diagnosis Assessment: Status post perforated ulcer emergent surgery completed Ventilator dependence Coronary artery disease previous bypass Acute on chronic renal failure End-of-life status Assessment and Plan Plan: Palliative care consult since appears to have extremely poor prognosis Empiric antibiotics Cardiology recommendations are appreciated Anasarca noted Needs DO NOT RESUSCITATE Clinical Quality Measures DVT/VTE Risk/Contraindication: Risk Factor Score Per Nursin RFS Level Per Nursing on Admit: 4+=Very High KEITH,ETHAN DO Apr 28, 2017 12:05
--- NOTE | 2017-04-28 12:14 | Progress Note ---
Subjective Date Seen by Provider: Apr 28, 2017 Time Seen by Provider: 09:45 Subjective/Events-last exam patient intubated and sedated. He is on pressors. Patient urine output picking up, but still low. Troponin elevated. No family at bedside Objective Exam Vital Signs Date Time Temp Pulse Resp B/P (MAP) Pulse Ox O2 Delivery O2 Flow Rate FiO2 04/28/17 11:59 94 Mechanical Ventilator 21 04/28/17 11:58 97.4 Mechanical Ventilator 21.00 04/28/17 10:19 127/44 04/28/17 10:08 78 17 98 21 04/28/17 09:00 60 10 137/73 97 Mechanical Ventilator 21.00 04/28/17 08:08 78 18 98 30 04/28/17 08:00 64 20 126/55 97 Mechanical Ventilator 30.00 04/28/17 08:00 99 Mechanical Ventilator 30 04/28/17 08:00 97.2 Mechanical Ventilator 30.00 04/28/17 07:00 61 14 127/76 97 Mechanical Ventilator 30.00 04/28/17 07:00 84 04/28/17 06:07 79 16 99 35 04/28/17 06:00 81 16 122/41 99 Mechanical Ventilator 30.00 04/28/17 05:00 84 25 132/47 99 Mechanical Ventilator 35.00 04/28/17 04:19 76 15 118/42 99 Mechanical Ventilator 95.00 04/28/17 04:15 82 17 99 35 04/28/17 04:00 97.2 74 17 105/39 99 Mechanical Ventilator 35.00 04/28/17 03:30 99 Mechanical Ventilator 35.00 04/28/17 03:00 73 14 115/42 99 Mechanical Ventilator 35.00 04/28/17 02:02 73 17 99 35 04/28/17 02:00 81 18 151/46 100 Mechanical Ventilator 35.00 04/28/17 01:00 71 04/28/17 01:00 68 17 111/42 99 Mechanical Ventilator 35.00 04/28/17 00:35 80 19 99 35 04/28/17 00:00 81 15 122/46 100 Mechanical Ventilator 35.00 04/27/17 23:40 100 Mechanical Ventilator 35.00 04/27/17 23:30 97.1 78 17 108/42 100 Mechanical Ventilator 35.00 04/27/17 22:13 87 149/50 04/27/17 22:04 80 20 99 35 04/27/17 22:00 75 20 124/51 100 Mechanical Ventilator 35.00 04/27/17 21:00 69 16 105/37 99 Mechanical Ventilator 35.00 04/27/17 20:10 71 24 94 35 04/27/17 20:00 99 Mechanical Ventilator 35.00 04/27/17 20:00 80 14 135/54 99 Mechanical Ventilator 35.00 04/27/17 19:57 94/44 04/27/17 19:00 77 04/27/17 19:00 97.0 81 19 110/44 98 Mechanical Ventilator 35.00 04/27/17 18:18 79 20 95 35 04/27/17 18:00 97.1 76 14 88/40 95 Mechanical Ventilator 35.00 04/27/17 17:54 120/44 04/27/17 17:00 90 14 90/44 97 Mechanical Ventilator 35.00 04/27/17 16:30 71 9 120/30 93 Mechanical Ventilator 35.00 04/27/17 16:25 Mechanical Ventilator 35 04/27/17 16:00 97.0 Mechanical Ventilator 35.00 04/27/17 15:45 96.8 110/70 04/27/17 15:28 82 20 98 35 04/27/17 13:09 98.7 109 28 94 Nasal Cannula 4.00 04/27/17 12:17 105 28 100/75 Nasal Cannula 4.00 I & O 04/28/17 07:00 Intake Total 5667.5 ml Output Total 1405 ml Balance 4262.5 ml Capillary Refill : Less Than 3 Seconds General Appearance: WD/WN, Chronically ill, Obese, Other (intubated and sedated ) HEENT: Normal ENT Inspection, Other (intubated) Neck: Normal Inspection, Supple Respiratory: No Accessory Muscle Use, No Respiratory Distress, Other Cardiovascular: Regular Rate, Rhythm Gastrointestinal: soft (Open midline skin) Extremity: Pedal Edema Neurologic/Psychiatric: Other (sedated) Skin: Mottled, Pallor, Other (Upper and lower extremity edema anasarca) Lymphatic: No Adenopathy Results Lab Laboratory Tests 04/27/17 16:00: Lactic Acid Level 1.34 04/27/17 17:02: Blood Gas Puncture Site LT RAD, Blood Gas Patient Temperature 96.8, Arterial Blood pH 7.44H, Arterial Blood Partial Pressure CO2 33L, Arterial Blood Partial Pressure O2 86, Arterial Blood HCO3 22L, Arterial Blood Total CO2 23.3, Arterial Blood Oxygen Saturation 99, Arterial Blood Base Excess -1.5, Bk Test ART LINE, Blood Gas Ventilator Setting YES, Blood Gas Inspired Oxygen 35% 04/27/17 18:41: White Blood Count 7.9, Red Blood Count 3.73L, Hemoglobin 9.3L, Hematocrit 32L, Mean Corpuscular Volume 86, Mean Corpuscular Hemoglobin 25, Mean Corpuscular Hemoglobin Concent 29L, Red Cell Distribution Width 20.8H, Platelet Count 213, Mean Platelet Volume 9.3, Neutrophils (%) (Auto) 87H, Lymphocytes (%) (Auto) 9L , Monocytes (%) (Auto) 4, Eosinophils (%) (Auto) 0, Basophils (%) (Auto) 0, Neutrophils # (Auto) 6.9, Lymphocytes # (Auto) 0.7L, Monocytes # (Auto) 0.3, Eosinophils # (Auto) 0.0, Basophils # (Auto) 0.0, Sodium Level 140, Potassium Level 3.9, Chloride Level 111H, Carbon Dioxide Level 20L, Anion Gap 9, Blood Urea Nitrogen 38H, Creatinine 1.82H, Estimat Glomerular Filtration Rate 36, BUN/ Creatinine Ratio 21, Glucose Level 128H, Calcium Level 6.7L, Total Bilirubin 2.0H, Aspartate Amino Transf (AST/SGOT) 29, Alanine Aminotransferase (ALT/SGPT) 18, Alkaline Phosphatase 96, Total Protein 4.3L, Albumin 2.0L 04/28/17 04:30: Blood Gas Puncture Site Low CARR, Blood Gas Patient Temperature 97.2, Arterial Blood pH 7.40, Arterial Blood Partial Pressure CO2 35, Arterial Blood Partial Pressure O2 97H, Arterial Blood HCO3 21L, Arterial Blood Total CO2 22.0 , Arterial Blood Oxygen Saturation 99, Arterial Blood Base Excess -3.3L, Bk Test ART LINE, Blood Gas Ventilator Setting YES, Blood Gas Inspired Oxygen 35%, White Blood Count 12.9H, Red Blood Count 4.06L, Hemoglobin 10.1L, Hematocrit 34L , Mean Corpuscular Volume 84, Mean Corpuscular Hemoglobin 25, Mean Corpuscular Hemoglobin Concent 30L, Red Cell Distribution Width 21.2H, Platelet Count 286, Mean Platelet Volume 9.6, Neutrophils (%) (Auto) 89H, Lymphocytes (%) (Auto) 7L , Monocytes (%) (Auto) 4, Eosinophils (%) (Auto) 0, Basophils (%) (Auto) 0, Neutrophils # (Auto) 11.5H, Lymphocytes # (Auto) 0.9L, Monocytes # (Auto) 0.6, Eosinophils # (Auto) 0.0, Basophils # (Auto) 0.0, Sodium Level 141, Potassium Level 3.9, Chloride Level 111H, Carbon Dioxide Level 20L, Anion Gap 10, Blood Urea Nitrogen 38H, Creatinine 1.82H, Estimat Glomerular Filtration Rate 36, BUN/ Creatinine Ratio 21, Glucose Level 158H, Calcium Level 7.1L, Total Bilirubin 1.8H, Aspartate Amino Transf (AST/SGOT) 29, Alanine Aminotransferase (ALT/SGPT) 18, Alkaline Phosphatase 103, Total Protein 4.8L, Albumin 2.0L, Prothrombin Time 20.3H, INR Comment 1.8H, Activated Partial Thromboplast Time 40H, Phosphorus Level 3.3, Magnesium Level 2.0, Troponin I 1.49*H, B-Type Natriuretic Peptide 1927.3H, Thyroid Stimulating Hormone (TSH) 1.36 Microbiology 04/27/17 Urine Culture - Preliminary, Resulted Escherichia Coli 04/27/17 Gram Stain - Final, Resulted 04/27/17 Anaerobic Culture, Resulted Pending 04/27/17 Surgical Culture - Preliminary, Resulted No growth Assessment/Plan Assessment/Plan Assessment/Plan perforation of hollow viscus tachypnea and tachycardic sepsis secondary to hollow viscus perforation septic shock secondary to perforated viscus CHF renal failure anasarca Non-ST elevated HI patient is on vancomycin and Zosyn and Diflucan. Patient urine output starting to pickling grader. Non-ST elevated HI Dr. Bales is following Continue nothing by mouth, try to get off pressors, slight volume decrease of right lung possible mucous plug Dr. Phillips on consult Patient condition still guarded Clinical Quality Measures DVT/VTE Risk/Contraindication: Risk Factor Score Per Nursin RFS Level Per Nursing on Admit: 4+=Very High WILBER ESPINOZA DO Apr 28, 2017 12:14
[2017-04-28] MEDS ORDERED: LACTATED RINGERS 1,000 ML IV SCH (12:45)
[2017-04-28] MEDS: fentaNYL INJECTION 1,250 MCG in NS (IVPB) 225 ML IV SCH (13:20)
[2017-04-28] MEDS ORDERED: TROUGH ORDER-PHARMACY XX NR (14:00)
[2017-04-28] MEDS: RT-ALBUTEROL/IPRATROPIUM 3 ML (DUONEB) VIAL INH SCH ×3 (14:11→23:03)
[2017-04-28] MEDS: aCETylcysteine 20% (MUCOMYST) 30ML SOLN VIAL INH SCH ×3 (14:12→23:03)
[2017-04-28] MEDS: PANTOPRAZOLE INJECTION 200 MG in NS (IVPB) 50 ML IV SCH (15:07)
[2017-04-28] MEDS: VANCOMYCIN 1 GM/NS 250 ML IVPB IV SCH ×2 (15:14)
[2017-04-28 15:42] LABS: ABG BASE EXCESS -3.8 MMOL/L (-2.5-2.5); ABG HCO3 21 MMOL/L (23-27); ABG OXYGEN SATURATION 93 % (94-100); ABG PCO2 37 MMHG (35-45); ABG PH 7.36 (7.37-7.43); ABG PO2 63 MMHG (79-93); ABG TCO2 21.9 MMOL/L (21.0-31.0)
[2017-04-28 15:44] LABS: ALLENS TEST ART LINE
[2017-04-28 15:45] LABS: PATIENT TEMP 98.4
[2017-04-28] MEDS ORDERED: ALBUMIN 25% 25 GM/100 ML 100 ML IV ONE (16:30)
--- NOTE | 2017-04-28 16:30 | Diagnostic Imaging Report ---
INDICATION: Abnormal and worsening lung sounds. TECHNIQUE: Single view chest, 3:34 p.m. CORRELATION STUDY: 04/28/2017. FINDINGS: Right pleural effusion with atelectasis or infiltrate at the right lung base does persist, overall somewhat improved, within generalized improvement in aeration of the right lung. Apical pleural thickening or fluid, right greater than left, is present. Heart size is enlarged with poststernotomy changes. Left lung is relatively clear. Vasculature is improved. Endotracheal tube, gastric tube and right IJ central line are in place as is a left-sided pacemaker. IMPRESSION: Combination of effusion with atelectasis or infiltrate at the right lung base persisting but overall perhaps slightly improved. Vasculature is improved on followup. Dictated by: Dictated on workstation # [id number]
--- NOTE | 2017-04-28 16:33 | Pulmonary Consultation ---
History of Present Illness History of Present Illness Date of Consultation 04/28/17 16:29 Time Seen by Provider: 18:00 Date of Admission Reason for Visit: coronary artery disease, Sepsis History of Present Illness 86yo patient who had recent hospitalization at [facility] secondary to acute renal failure and GIB secondary to gastric ulcers then transferred to [facility] presented to ED on 04/27 secondary to progressive abdominal pain. He was found to have an acute abdomen with free air. Dr. Son performed emergent surgery to repair perforated gastric ulcer. Prior to admission patient was a DNR however family reversed DNR status and is currently ok with full code blue status. Unable to obtain ROS secondary to pt being sedated/intubated on vent. Allergies and Home Medications Allergies Coded Allergies: KEELEY Inhibitors (Verified Allergy, Severe, wheezing and swelling in his throat with KEELEY inhibitors, 11/01/15) wheezing and swelling in his throat with KEELEY inhibitors atenolol (Verified Allergy, Severe, swelling throat, 11/01/15) swelling in his throat and wheezing with nonselective beta blockers. metoprolol (Verified Allergy, Severe, throat swelling and dry cough, ) throat swelling and dry cough Mjylxus-Jqk-Mgy Reductase Inhibitor (Unverified Allergy, Unknown, 11/01/15) Home Medications Dapsone 25 Mg Tablet, 25 MG PO, (Reported) Digoxin 125 Mcg Tablet, 125 MCG PO DAILY, (Reported) Diltiazem HCl 180 Mg Cap.er.24h, 180 MG PO, (Reported) Finasteride 5 Mg Tablet, 5 MG PO DAILY, (Reported) Furosemide 40 Mg Tablet, 40 MG PO, (Reported) Glucosamine Sulfate 500 Mg Capsule, 500 MG PO, (Reported) Hydrocodone/Acetaminophen 1 Each Tablet, 1 EACH PO, (Reported) Latanoprost 2.5 Ml Drops, 2.5 ML OP, (Reported) Mag Hydrox/Al Hydrox/Simeth 30 Ml Oral.susp, 30 ML PO QID PRN for INDIGESTION, ( Reported) Melatonin 10 Mg Tab.mphase, 10 MG PO, (Reported) Metolazone 2.5 Mg Tablet, 2.5 MG PO, (Reported) Metoprolol Succinate 25 Mg Tab.er.24h, 25 MG PO DAILY, (Reported) Halma-3/Dha/Epa/Fish Oil 1 Each Capsule, 1 CAP PO BID, (Reported) Saw [place] 500 Mg Capsule, 500 MG PO, (Reported) Tamsulosin HCl 0.4 Mg Cap.er.24h, 0.4 MG PO, (Reported) Ubidecarenone 100 Mg Capsule, 100 MG PO DAILY, (Reported) Past Uewebbh-Ctmndg-Xyettg Hx Patient Social History Alcohol Use: Denies Use Recreational Drug Use: No Smoking Status: Never a Smoker Former Smoker/When Quit: Mar 29, 1978 2nd Hand Smoke Exposure: No Recent Foreign Travel: No Contact w/Someone Who Travel: No Recent Infectious Disease Expo: No Recent Hopitalizations: No Physical Abuse Screen: No Sexual Abuse: No Immunizations Up To Date Tetanus Booster (TDap): Less than 5yrs PED Vaccines UTD: Yes Date of Pneumonia Vaccine: Sep 20, 2014 Date of Influenza Vaccine: Jul 27, 2015 Seasonal Allergies Seasonal Allergies: No Surgeries HX Surgeries: Yes (MITRAL VALVE REPAIR; CARDIAC CATHS--UNKNOWN NUMBER OF STENTS ) Surgeries: Appendectomy, Cardiac, CABG, Coronary Stent, Pacemaker, Valve Replacement Respiratory Hx Respiratory Disorders: No Respiratory Disorders: Sleep Apnea, COPD Cardiovascular Hx Cardiac Disorders: Yes (MITRAL VALVE PROLAPSE) Cardiac Disorders: Atrial Fibrillation, Chronic Edema/Swelling, Coronary Artery Disease, Heart Attack, Heart Murmur, Hypertension, Valvular Heart Disease Neurological Hx Neurological Disorders: No Neurological Disorders: Headaches /Migraines Reproductive System Hx Reproductive Disorders: No Sexually Transmitted Disease: No HIV/AIDS: No Genitourinary Hx Genitourinary Disorders: Yes (CHRONIC RENAL FAILURE) Genitourinary Disorders: Renal Failure Gastrointestinal Hx Gastrointestinal Disorders: No Gastrointestinal Disorders: Gastroesophageal Reflux, Polyps Musculoskeletal Hx Musculoskeletal Disorders: No Musculoskeletal Disorders: Arthritis Endocrine Hx Endocrine Disorders: No HEENT HX ENT Disorders: Yes HEENT Disorders: Cataract, Glaucoma Loss of Vision: Right Hearing Impairment: Denies Cancer Hx Cancer: No Psychosocial Hx Psychiatric Problems: No Integumentary HX Skin/Integumentary Disorder: No Blood Transfusions Hx Blood Disorders: No Adverse Reaction to a Blood Tr: No Family Medical History Significant Family History: No Pertinent Family Hx Family Medial History: Diabetes mellitus 19 MOTHER G8 SISTER FH: aneurysm FH: heart disease 19 MOTHER Prostate cancer 19 FATHER Review of Systems Time Seen by Provider: 18:00 Exam Exam Vital Signs Date Time Temp Pulse Resp B/P (MAP) Pulse Ox O2 Delivery O2 Flow Rate FiO2 04/28/17 16:00 98.4 100 Mechanical Ventilator 35.00 04/28/17 15:50 117/42 04/28/17 15:50 100 Mechanical Ventilator 35 04/28/17 14:12 84 19 99 21 04/28/17 12:41 95 17 100 21 04/28/17 12:00 79 18 133/48 94 Mechanical Ventilator 21.00 04/28/17 11:59 94 Mechanical Ventilator 21 04/28/17 11:58 97.4 Mechanical Ventilator 21.00 04/28/17 11:00 93 16 118/44 94 Mechanical Ventilator 21.00 04/28/17 10:19 127/44 04/28/17 10:08 78 17 98 21 04/28/17 10:00 88 17 135/49 94 Mechanical Ventilator 21.00 04/28/17 09:00 60 10 137/73 97 Mechanical Ventilator 21.00 04/28/17 08:08 78 18 98 30 04/28/17 08:00 64 20 126/55 97 Mechanical Ventilator 30.00 04/28/17 08:00 99 Mechanical Ventilator 30 04/28/17 08:00 97.2 Mechanical Ventilator 30.00 04/28/17 07:00 61 14 127/76 97 Mechanical Ventilator 30.00 04/28/17 07:00 84 04/28/17 06:07 79 16 99 35 04/28/17 06:00 81 16 122/41 99 Mechanical Ventilator 30.00 04/28/17 05:00 84 25 132/47 99 Mechanical Ventilator 35.00 04/28/17 04:19 76 15 118/42 99 Mechanical Ventilator 95.00 04/28/17 04:15 82 17 99 35 04/28/17 04:00 97.2 74 17 105/39 99 Mechanical Ventilator 35.00 04/28/17 03:30 99 Mechanical Ventilator 35.00 04/28/17 03:00 73 14 115/42 99 Mechanical Ventilator 35.00 04/28/17 02:02 73 17 99 35 04/28/17 02:00 81 18 151/46 100 Mechanical Ventilator 35.00 04/28/17 01:00 71 04/28/17 01:00 68 17 111/42 99 Mechanical Ventilator 35.00 04/28/17 00:35 80 19 99 35 04/28/17 00:00 81 15 122/46 100 Mechanical Ventilator 35.00 04/27/17 23:40 100 Mechanical Ventilator 35.00 04/27/17 23:30 97.1 78 17 108/42 100 Mechanical Ventilator 35.00 04/27/17 22:13 87 149/50 04/27/17 22:04 80 20 99 35 04/27/17 22:00 75 20 124/51 100 Mechanical Ventilator 35.00 04/27/17 21:00 69 16 105/37 99 Mechanical Ventilator 35.00 04/27/17 20:10 71 24 94 35 04/27/17 20:00 99 Mechanical Ventilator 35.00 04/27/17 20:00 80 14 135/54 99 Mechanical Ventilator 35.00 04/27/17 19:57 94/44 04/27/17 19:00 77 04/27/17 19:00 97.0 81 19 110/44 98 Mechanical Ventilator 35.00 04/27/17 18:18 79 20 95 35 04/27/17 18:00 97.1 76 14 88/40 95 Mechanical Ventilator 35.00 04/27/17 17:54 120/44 04/27/17 17:00 90 14 90/44 97 Mechanical Ventilator 35.00 04/27/17 16:30 71 9 120/30 93 Mechanical Ventilator 35.00 I & O 04/28/17 07:00 Intake Total 5667.5 ml Output Total 1405 ml Balance 4262.5 ml General Appearance: WD/WN, Chronically ill, Obese, Other (intubated and sedated ) HEENT: Normal ENT Inspection, Other (intubated) Neck: Normal Inspection, Supple Respiratory: No Accessory Muscle Use, No Respiratory Distress, Other Cardiovascular: Regular Rate, Rhythm Capillary Refill: Less Than 3 Seconds Gastrointestinal: soft (Open midline skin) Extremity: Normal Capillary Refill, Normal Inspection, Pedal Edema Neurologic/Psychiatric: Other (sedated) Skin: Mottled, Pallor, Other (Upper and lower extremity edema anasarca) Lymphatic: No Adenopathy Results Lab Laboratory Tests 04/27/17 11:15 04/27/17 18:41 04/28/17 04:30 Assessment/Plan Assessment/Plan VDRF Gastric perforation s/p surgery Septic shock -continue vanco, zosyn, diflucan -CVP monitoring -continue aggressive IVF -Titrate levophed -give albumin 25gms -Start solucortef Anasarca NSTEMI CHF 255 Clinical Quality Measures DVT/VTE Risk/Contraindication: Risk Factor Score Per Nursin RFS Level Per Nursing on Admit: 4+=Very High CAPRI SILVEIRA DO Apr 28, 2017 16:33
[2017-04-28] MEDS: HYDROCORTISONE 100 MG/2 ML (Solu-CORTEF) VIAL IV SCH (22:08)
[2017-04-29] VITALS (33 sets, daily range): BP systolic 106–138; BP diastolic 43–61
[2017-04-29] MEDS: aCETylcysteine 20% (MUCOMYST) 30ML SOLN VIAL INH SCH ×3 (02:19→22:03)
[2017-04-29] MEDS: RT-ALBUTEROL/IPRATROPIUM 3 ML (DUONEB) VIAL INH SCH ×6 (02:19→22:02)
[2017-04-29] MEDS: PROPOFOL DRIP (ICU) 100 ML IV SCH ×4 (02:21→22:57)
[2017-04-29] MEDS: NOREPINEPHRINE 4 MG in D5W 250 ML (IVPB) 250 ML IV SCH ×3 (02:41→15:14)
[2017-04-29] MEDS: NS IV 1000 ML 1,000 ML IV SCH ×4 (02:47→22:58)
[2017-04-29 04:06] LABS: BASOPHILS % (AUTO) 0 % (0-10); EOSINOPHILS % (AUTO) 0 % (0-10); LYMPHOCYTES # (AUTO) 0.6 X 10^3 (1.0-4.0); LYMPHOCYTES % (AUTO) 4 % (12-44); MEAN CORPUSCULAR HEMOGLOBIN 25 PG (25-34); MEAN CORPUSCULAR HGB CONC 29 G/DL (32-36); MEAN CORPUSCULAR VOLUME 85 FL (80-99); MEAN PLATELET VOLUME 8.8 FL (7.4-10.4); MONOCYTES # (AUTO) 0.4 X 10^3 (0.0-1.0); MONOCYTES % (AUTO) 3 % (0-12); NEUTROPHILS # (AUTO) 12.3 X 10^3 (1.8-7.8); NEUTROPHILS % (AUTO) 92 % (42-75); PLATELET COUNT 210 10^3/uL (130-400); RED BLOOD COUNT 3.87 10^6/uL (4.35-5.85); RED CELL DISTRIBUTION WIDTH 21.1 % (10.0-14.5); WHITE BLOOD COUNT 13.3 10^3/uL (4.3-11.0)
[2017-04-29 04:07] LABS: ABG BASE EXCESS -4.8 MMOL/L (-2.5-2.5); ABG HCO3 20 MMOL/L (23-27); ABG OXYGEN SATURATION 99 % (94-100); ABG PCO2 37 MMHG (35-45); ABG PH 7.35 (7.37-7.43); ABG PO2 125 MMHG (79-93); ABG TCO2 21.3 MMOL/L (21.0-31.0)
[2017-04-29 04:10] LABS: ALLENS TEST ART LINE; PATIENT TEMP 96.6
[2017-04-29 04:32] LABS: CALCIUM 7.2 MG/DL (8.5-10.1); CREATININE SERUM 1.74 MG/DL (0.60-1.30); MAGNESIUM 1.9 MG/DL (1.8-2.4); PHOSPHORUS 3.5 MG/DL (2.3-4.7); POTASSIUM 3.6 MMOL/L (3.6-5.0)
[2017-04-29] MEDS: PIPERACILLIN SODIUM/TAZOBACTAM 4.5 GM in NS (IVPB) 100 ML IV SCH ×3 (04:46→21:36)
[2017-04-29] MEDS: POTASSIUM CL 10MEQ/50ML IVPB 50 ML IV SCH ×3 (04:46→06:14)
[2017-04-29] MEDS: HYDROCORTISONE 100 MG/2 ML (Solu-CORTEF) VIAL IV SCH ×3 (05:58→23:18)
[2017-04-29] MEDS: KCL 20 MEQ TAB (K-DUR) PO SCH (06:14)
[2017-04-29] MEDS: MAGNESIUM 1 GM/100 ML IVPB 100 ML IV SCH (06:14)
--- NOTE | 2017-04-29 07:31 | Pulmonary Progress Note ---
Subjective Time Seen by Provider: 07:32 Subjective/Events-last exam Pt did not tolerate sedation vacation this AM. Exam Exam Vital Signs Date Time Temp Pulse Resp B/P (MAP) Pulse Ox O2 Delivery O2 Flow Rate FiO2 04/29/17 06:00 113 16 126/51 100 Mechanical Ventilator 25.00 04/29/17 05:00 142 19 122/49 100 Mechanical Ventilator 25.00 04/29/17 04:30 122 20 88 30 04/29/17 04:00 96.6 04/29/17 04:00 100 Mechanical Ventilator 35 04/29/17 04:00 120 15 127/47 100 Mechanical Ventilator 35.00 04/29/17 03:00 126 18 106/45 100 Mechanical Ventilator 35.00 04/29/17 02:21 116 04/29/17 02:19 105 17 100 35 04/29/17 02:00 105 15 114/44 100 Mechanical Ventilator 35.00 04/29/17 01:00 110 04/29/17 01:00 107 18 123/46 100 Mechanical Ventilator 35.00 04/29/17 00:30 112 20 100 30 04/29/17 00:00 96.9 04/29/17 00:00 107 17 107/43 100 Mechanical Ventilator 35.00 04/29/17 00:00 100 Mechanical Ventilator 35 04/28/17 23:03 94 19 100 35 04/28/17 23:00 101 16 114/44 100 Mechanical Ventilator 35.00 04/28/17 22:00 102 18 107/41 100 Mechanical Ventilator 35.00 04/28/17 21:17 121 04/28/17 21:00 115 17 100 Mechanical Ventilator 35.00 04/28/17 20:35 98 21 100 35 04/28/17 20:00 97.2 04/28/17 20:00 100 Mechanical Ventilator 35 04/28/17 20:00 115 15 101/37 100 Mechanical Ventilator 35.00 04/28/17 19:00 113 04/28/17 19:00 87 18 103/43 100 Mechanical Ventilator 35.00 04/28/17 18:45 91 17 100 35 04/28/17 18:00 101 15 106/41 100 Mechanical Ventilator 35.00 04/28/17 17:00 103 17 112/39 100 Mechanical Ventilator 35.00 04/28/17 16:41 101 16 100 35 04/28/17 16:00 98.4 100 Mechanical Ventilator 35.00 04/28/17 16:00 91 14 109/40 100 Mechanical Ventilator 35.00 04/28/17 15:50 117/42 04/28/17 15:50 100 Mechanical Ventilator 35 04/28/17 15:00 98 16 125/46 98 Mechanical Ventilator 21.00 04/28/17 14:12 84 19 99 21 04/28/17 14:00 84 18 108/42 98 Mechanical Ventilator 21.00 04/28/17 13:00 86 04/28/17 13:00 86 15 101/39 99 Mechanical Ventilator 21.00 04/28/17 12:41 95 17 100 21 04/28/17 12:00 79 18 133/48 94 Mechanical Ventilator 21.00 04/28/17 11:59 94 Mechanical Ventilator 21 04/28/17 11:58 97.4 Mechanical Ventilator 21.00 04/28/17 11:00 93 16 118/44 94 Mechanical Ventilator 21.00 04/28/17 10:19 127/44 04/28/17 10:08 78 17 98 21 04/28/17 10:00 88 17 135/49 94 Mechanical Ventilator 21.00 04/28/17 09:00 60 10 137/73 97 Mechanical Ventilator 21.00 04/28/17 08:08 78 18 98 30 04/28/17 08:00 64 20 126/55 97 Mechanical Ventilator 30.00 04/28/17 08:00 99 Mechanical Ventilator 30 04/28/17 08:00 97.2 Mechanical Ventilator 30.00 I & O 04/29/17 07:00 Intake Total 2108 ml Output Total 1465 ml Balance 643 ml General Appearance: WD/WN, Chronically ill, Obese, Other (intubated and sedated ) HEENT: Normal ENT Inspection, Other (intubated) Neck: Normal Inspection, Supple Respiratory: No Accessory Muscle Use, No Respiratory Distress, Other Cardiovascular: Regular Rate, Rhythm Capillary Refill: Less Than 3 Seconds Gastrointestinal: soft (Open midline skin) Extremity: Normal Capillary Refill, Normal Inspection, Pedal Edema Neurologic/Psychiatric: Other (sedated) Skin: Mottled, Pallor, Other (Upper and lower extremity edema anasarca) Lymphatic: No Adenopathy Results Lab Laboratory Tests 04/27/17 11:15 7/8/17 18:41 04/28/17 04:30 04/29/17 03:58 Assessment/Plan Assessment/Plan VDRF Atlectasis RLL with probable mucous plugging -Pt failed weaning trial this AM -Cultures are negative -Will do bedside bronchoscopy tomorrow morning and then continue weaning trials. -Keep Fentanyl and Diprivan for now Gastric perforation s/p surgery -Pain control Acute on chronic renal failure -Continue IVF and monitoring Hypokalemia -replace Septic shock -continue vanco, zosyn, diflucan -repeat NS bolus 1 liter -Titrate levophed -repeat albumin 25gms -Continue solucortef Anasarca NSTEMI CHF -monitor Labs and radiology reviewed 233 60min spent with patient and medical team Pt's overall prognosis is poor. Will d/w family regarding making patient a no code blue and continue weaning trials. It is reasonable to continue to wean ventilator to hopefully successful extubation. Pt is only requiring 25% Fi02. Once patient is extubated I would recommend pt be made full DNR/DNI. I believe I can have patient extubated successfully this week. Will try to arrange for family meeting tomorrow morning. Clinical Quality Measures DVT/VTE Risk/Contraindication: Risk Factor Score Per Nursin RFS Level Per Nursing on Admit: 4+=Very High CAPRI SILVEIRA DO Apr 29, 2017 07:31
--- NOTE | 2017-04-29 08:36 | Progress Note ---
Subjective Date Seen by Provider: Apr 29, 2017 Time Seen by Provider: 08:15 Subjective/Events-last exam Patient is still intubated. Currently being weaned off Levo. Did not tolerate weaning off the vent this AM. Objective Exam Vital Signs Date Time Temp Pulse Resp B/P (MAP) Pulse Ox O2 Delivery O2 Flow Rate FiO2 04/29/17 08:12 120 23 98 25 04/29/17 07:59 139/61 04/29/17 07:00 130 04/29/17 06:53 120 20 100 25 04/29/17 06:00 113 16 126/51 100 Mechanical Ventilator 25.00 04/29/17 05:00 142 19 122/49 100 Mechanical Ventilator 25.00 04/29/17 04:30 122 20 88 30 04/29/17 04:00 96.6 04/29/17 04:00 100 Mechanical Ventilator 35 04/29/17 04:00 120 15 127/47 100 Mechanical Ventilator 35.00 04/29/17 03:00 126 18 106/45 100 Mechanical Ventilator 35.00 04/29/17 02:21 116 04/29/17 02:19 105 17 100 35 04/29/17 02:00 105 15 114/44 100 Mechanical Ventilator 35.00 04/29/17 01:00 110 04/29/17 01:00 107 18 123/46 100 Mechanical Ventilator 35.00 04/29/17 00:30 112 20 100 30 04/29/17 00:00 96.9 04/29/17 00:00 107 17 107/43 100 Mechanical Ventilator 35.00 04/29/17 00:00 100 Mechanical Ventilator 35 04/28/17 23:03 94 19 100 35 04/28/17 23:00 101 16 114/44 100 Mechanical Ventilator 35.00 04/28/17 22:00 102 18 107/41 100 Mechanical Ventilator 35.00 04/28/17 21:17 121 04/28/17 21:00 115 17 100 Mechanical Ventilator 35.00 04/28/17 20:35 98 21 100 35 04/28/17 20:00 97.2 04/28/17 20:00 100 Mechanical Ventilator 35 04/28/17 20:00 115 15 101/37 100 Mechanical Ventilator 35.00 04/28/17 19:00 113 04/28/17 19:00 87 18 103/43 100 Mechanical Ventilator 35.00 04/28/17 18:45 91 17 100 35 04/28/17 18:00 101 15 106/41 100 Mechanical Ventilator 35.00 04/28/17 17:00 103 17 112/39 100 Mechanical Ventilator 35.00 04/28/17 16:41 101 16 100 35 04/28/17 16:00 98.4 100 Mechanical Ventilator 35.00 04/28/17 16:00 91 14 109/40 100 Mechanical Ventilator 35.00 04/28/17 15:50 117/42 04/28/17 15:50 100 Mechanical Ventilator 35 04/28/17 15:00 98 16 125/46 98 Mechanical Ventilator 21.00 04/28/17 14:12 84 19 99 21 04/28/17 14:00 84 18 108/42 98 Mechanical Ventilator 21.00 04/28/17 13:00 86 04/28/17 13:00 86 15 101/39 99 Mechanical Ventilator 21.00 04/28/17 12:41 95 17 100 21 04/28/17 12:00 79 18 133/48 94 Mechanical Ventilator 21.00 04/28/17 11:59 94 Mechanical Ventilator 21 04/28/17 11:58 97.4 Mechanical Ventilator 21.00 04/28/17 11:00 93 16 118/44 94 Mechanical Ventilator 21.00 04/28/17 10:19 127/44 04/28/17 10:08 78 17 98 21 04/28/17 10:00 88 17 135/49 94 Mechanical Ventilator 21.00 04/28/17 09:00 60 10 137/73 97 Mechanical Ventilator 21.00 I & O 04/29/17 07:00 Intake Total 2108 ml Output Total 1465 ml Balance 643 ml Capillary Refill : Less Than 3 Seconds General Appearance: WD/WN, Chronically ill, Obese, Other (intubated and sedated ) HEENT: Normal ENT Inspection, Other (intubated) Neck: Normal Inspection, Supple Respiratory: No Accessory Muscle Use, No Respiratory Distress, Other Cardiovascular: Regular Rate, Rhythm Gastrointestinal: soft (Open midline skin) Extremity: Normal Capillary Refill, Normal Inspection, Pedal Edema Neurologic/Psychiatric: Other (sedated and intubated. Responded to RN commands) Skin: Mottled, Pallor, Other (Upper and lower extremity edema anasarca. Patient to have wound vac to incision site from surgery yesterday. Clean and dry this Am. no signs of drainage noted to wound. ) Lymphatic: No Adenopathy Results Lab Laboratory Tests 04/28/17 13:45: Vancomycin Level Trough 11.7 04/28/17 15:30: Blood Gas Puncture Site ART LINE, Blood Gas Patient Temperature 98.4, Arterial Blood pH 7.36L, Arterial Blood Partial Pressure CO2 37, Arterial Blood Partial Pressure O2 63L, Arterial Blood HCO3 21L, Arterial Blood Total CO2 21.9, Arterial Blood Oxygen Saturation 93L, Arterial Blood Base Excess -3.8L, Bk Test ART LINE, Blood Gas Ventilator Setting YES, Blood Gas Inspired Oxygen 21% 04/29/17 03:58: Blood Gas Puncture Site BRUNO, Blood Gas Patient Temperature 96.6, Arterial Blood pH 7.35L, Arterial Blood Partial Pressure CO2 37, Arterial Blood Partial Pressure O2 125H, Arterial Blood HCO3 20L, Arterial Blood Total CO2 21.3, Arterial Blood Oxygen Saturation 99, Arterial Blood Base Excess -4.8L, Bk Test ART LINE, Blood Gas Ventilator Setting YES, Blood Gas Inspired Oxygen 35%, White Blood Count 13.3H, Red Blood Count 3.87L, Hemoglobin 9.5L, Hematocrit 33L , Mean Corpuscular Volume 85, Mean Corpuscular Hemoglobin 25, Mean Corpuscular Hemoglobin Concent 29L, Red Cell Distribution Width 21.1H, Platelet Count 210, Mean Platelet Volume 8.8, Neutrophils (%) (Auto) 92H, Lymphocytes (%) (Auto) 4L , Monocytes (%) (Auto) 3, Eosinophils (%) (Auto) 0, Basophils (%) (Auto) 0, Neutrophils # (Auto) 12.3H, Lymphocytes # (Auto) 0.6L, Monocytes # (Auto) 0.4, Eosinophils # (Auto) 0.0, Basophils # (Auto) 0.0, Sodium Level 140, Potassium Level 3.6, Chloride Level 111H, Carbon Dioxide Level 19L, Anion Gap 10, Blood Urea Nitrogen 35H, Creatinine 1.74H, Estimat Glomerular Filtration Rate 38, BUN/ Creatinine Ratio 20, Glucose Level 199H, Calcium Level 7.2L, Phosphorus Level 3.5, Magnesium Level 1.9 Microbiology 04/27/17 Blood Culture - Preliminary, Resulted No growth 04/27/17 Urine Culture - Preliminary, Resulted Escherichia Coli 04/27/17 Gram Stain - Final, Resulted 04/27/17 Anaerobic Culture, Resulted Pending 04/27/17 Surgical Culture - Preliminary, Resulted No growth Assessment/Plan Assessment/Plan Assessment/Plan perforation of hollow viscus tachypnea and tachycardic sepsis secondary to hollow viscus perforation septic shock secondary to perforated viscus CHF renal failure anasarca Non-ST elevated IA patient is on vancomycin and Zosyn and Diflucan. 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 Non-ST elevated IA Dr. Bales is following Continue nothing by mouth, try to get off pressors, slight volume decrease of right lung possible mucous plug Dr. Phillips on consult Patient condition still guarded Adelaida patient remains on ventilator Roberts weaning trial. His right lung looks better aerated by Dr. Phillips is planning on doing bedside bronchoscopy tomorrow. Patient urine output slightly improved. Continues to be on pressors. He is on Protonix drip. Patient nothing by mouth. Patient still with significant anasarca. abdomen soft midline skin open clean and dry. Victoriano's serous drainage Patient still [place] for accurate I's and O's. NG tube not to be removed. If patient improves will need to do a Gastrografin study in near future to evaluate for leak. Prior to NG tube being removed and starting diet. Patient overall prognosis is poor. We'll continue with medical management. We'll continue to try to wean from the vent. Continue on antibiotics and Diflucan. Continue on Protonix drip. Wound vac to open midline. Dvt prophylaxis of scd's okay with addition of lovenox if hgb stable Clinical Quality Measures DVT/VTE Risk/Contraindication: Risk Factor Score Per Nursin RFS Level Per Nursing on Admit: 4+=Very High FERNANDA LOWE APRN Apr 29, 2017 08:36 WILBER ESPINOZA DO Apr 29, 2017 09:50
--- NOTE | 2017-04-29 08:45 | Cardiology Progress Note ---
Subjective Date Seen by Provider: Apr 29, 2017 Time Seen by Provider: 08:40 Subjective/Events-last exam patient is intubated and sedated, was hypotensive this morning, received additional bolus of 1 L normal saline, trying to wean him off pressors Review of Systems General: Other (sedated and intubated, unable to provide review of system) Objective-Cardiology Exam Last Set of Vital Signs Vital Signs 04/29/17 04/29/17 04/29/17 04/29/17 04:00 06:00 07:59 08:12 Temp 96.6 Pulse 120 Resp 23 B/P (MAP) 139/61 Pulse Ox 98 O2 Delivery Mechanical Ventilator O2 Flow Rate 25.00 FiO2 25 Capillary Refill : Less Than 3 Seconds I&O Intake and Output 04/29/17 00:00 Intake Total 3558 ml Output Total 1760 ml Balance 1798 ml Intake Oral 0 ml IV Total 3558 ml Output Urine Total 685 ml Drainage Total 1075 ml General: Severe Distress, Other (sedated and intubated) HEENT: Atraumatic, EOMI Neck: Supple, No Thyromegaly Lungs: Other (bilateral rhonchi, intubated) Heart: Normal S1, Normal S2, Other (systolic murmur at the left sternal border , tachycardia, irregular) Abdomen: Other (postoperative, diminished bowel sound) Extremities: Other (anasarca, upper and lower extremity edema) Skin: Other (abdominal surgery) Neuro: Other (sedated and intubated) Psych/Mental Status: Other (sedated and intubated) Results Lab Laboratory Tests 04/29/17 03:58 A/P-Cardiology Admission Diagnosis Sepsis Coronary artery disease Congestive heart failure Atrial fibrillation Assessment/Plan Sepsis, perforated bowel, postoperative day number 2, managed by Dr. Phillips. Septic shock, hypotensive shock, still borderline hypotensive, received additional liter of fluid, maintained on norepinephrine, trying to wean him off cautiously. Acute respiratory failure, ventilator dependent. Managed by Dr. Phillips. Acute on chronic congestive heart failure, left ventricular systolic and diastolic dysfunction, chronic decompensation, extensive edema, echo showed ejection fraction 35-40 percent, continue with IV fluid at this time until his blood pressure is more stable then start diuretics. Non-ST elevation myocardial infarction, elevated troponin level, probably due to underlying coronary artery disease and sepsis with septic shock. Conservative management for now. Continue to monitor the trend of troponin, unable to tolerate aspirin due to perforated duodenal ulcer, restart aspirin once approved by Dr. Son Coronary artery disease, history of CABG 1 using [place], mitral valve repair done about 10 years ago at , MPI of 12/25/16: basal inf infarction with minimal periinfarct ischemia, posterobasal darci, LVEF 22%, mild to mod cardiomegaly. RVG of 01/08/17 showed LVEF 21%, last echocardiogram showed ejection fraction 35-40 percent Anasarca, upper and lower extremity edema, probably secondary to congestive heart failure in addition to renal failure, still having fluid shift with third spacing, continue with IV fluid until his blood pressure is stable then start diuretics Pulmonary hypertension secondary to sleep apnea, PA pressure of 50 mmHg PPM - per Dr. Yoder's record, details unknown. Patient reports that it was placed by Dr. Velazco at [facility] and d/t leads not functioning the device was "turned off" by Dr Leonard at [facility] in 2014. It is not functioning, according to the patient Chronic atrial fibrillation, currently tachycardic, I will restart digoxin and monitor heart rate Warfarin for stroke prophylaxis, Currently off anticoagulation, restart therapeutic dose of Lovenox if okay with Dr. Son Reported intolerance to statin, KEELEY (-) and ARB in the past, allergy to atenolol and metoprolol and beta blockers. COPD, CHAD - followed by Dr. 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 Continue to monitor renal function closely. Anemia, monitor H&H Clinical Quality Measures DVT/VTE Risk/Contraindication: Risk Factor Score Per Nursin RFS Level Per Nursing on Admit: 4+=Very High ZOLTAN RICHTER MD Apr 29, 2017 08:45
[2017-04-29] MEDS: ALBUMIN 25% 25 GM/100 ML 100 ML IV SCH ×2 (08:55→15:13)
[2017-04-29] MEDS: FLUCONAZOLE 200 MG/100 ML 100 ML IV SCH (08:57)
--- NOTE | 2017-04-29 09:10 | Diagnostic Imaging Report ---
INDICATION: Shortness of breath. Portable chest 5:44 AM. There is an ET tube projecting over the trachea. NG tube projects over the stomach. There is a dual-chamber pacemaker. There are postop changes from a median sternotomy. Right EJ PICC line tip projects over the SVC. Heart size and pulmonary vascularity are normal. There is a tiny right pleural effusion. IMPRESSION: Tiny right pleural effusion with minimal basilar atelectasis. No significant change compared to previous day. Dictated by: Dictated on workstation # [id number]
[2017-04-29] MEDS: DIGOXIN 0.25 MG/ML (LANOXIN) 2 ML AMP IV SCH (09:14)
[2017-04-29] MEDS: ENOXAPARIN 300 MG/3 ML (LOVENOX) MULTI-DOSE VIAL SQ SCH ×2 (10:55→23:17)
--- NOTE | 2017-04-29 13:17 | Progress Note-Hospitalist ---
Standard Progress Note Progress Notes/Assess & Plan Date Seen 04/29/17 Time Seen by Provider: 13:11 Diagnosis Assessment: Status post perforated ulcer emergent surgery completed Ventilator dependence Coronary artery disease previous bypass Acute on chronic renal failure End-of-life status Assess & Plan/Chief Complaint The patient is an elderly white male who presented in extremis with a perforated viscus. This was found to be gastric in origin at laparotomy. He had been a no code designation prior but this was rescinded in order to perform surgery. He has required ventilation and pressors since that time. He is deeply sedated at the time of examination. Physical exam: The patient is totally ventilator dependent. His SaO2 was 100 percent. Blood pressures are satisfactory on levaphed. Lungs are clear to auscultation. CV shows a rate between 120 and 140. Abdomen is firm to palpation. There is diffuse edema including face arms belly and lower extremities. Impression: 1.perforated viscus. 2.sepsis secondary to number 1. 3.continued critical condition Plan: Continue present regimens. With each passing day, given age and frailty prior to this crisis, there appears to be decreasing prospect of a positive outcome. Labs Laboratory Tests 04/27/17 18:41 04/28/17 04:30 04/29/17 03:58 RAMSEY CONTRERAS MD Apr 29, 2017 13:17
[2017-04-29] MEDS ORDERED: aCETylcysteine 20% (MUCOMYST) 30ML SOLN VIAL INH SCH ×2 (14:00→14:45)
[2017-04-29] MEDS: VANCOMYCIN 1 GM/NS 250 ML IVPB IV SCH ×2 (15:13)
[2017-04-29] MEDS: fentaNYL INJECTION 1,250 MCG in NS (IVPB) 225 ML IV SCH (17:42)
[2017-04-29] MEDS: PANTOPRAZOLE 40 MG/10 ML (PROTONIX) VIAL IV SCH (21:36)
[2017-04-30] VITALS (14 sets, daily range): BP systolic 108–149; BP diastolic 53–69
[2017-04-30] MEDS: ALBUMIN 25% 25 GM/100 ML 100 ML IV SCH (00:39)
[2017-04-30] MEDS: RT-ALBUTEROL/IPRATROPIUM 3 ML (DUONEB) VIAL INH SCH ×2 (02:14→05:09)
[2017-04-30] MEDS: PROPOFOL DRIP (ICU) 100 ML IV SCH (04:01)
[2017-04-30] MEDS: aCETylcysteine 20% (MUCOMYST) 30ML SOLN VIAL INH SCH (05:16)
[2017-04-30] MEDS: fentaNYL INJECTION 1,250 MCG in NS (IVPB) 225 ML IV SCH (05:32)
[2017-04-30] MEDS: NOREPINEPHRINE 4 MG in D5W 250 ML (IVPB) 250 ML IV SCH (05:33)
[2017-04-30] MEDS: PIPERACILLIN SODIUM/TAZOBACTAM 4.5 GM in NS (IVPB) 100 ML IV SCH (05:34)
[2017-04-30 05:51] LABS: ABG BASE EXCESS -6.6 MMOL/L (-2.5-2.5); ABG HCO3 18 MMOL/L (23-27); ABG OXYGEN SATURATION 99 % (94-100); ABG PCO2 32 MMHG (35-45); ABG PH 7.36 (7.37-7.43); ABG PO2 98 MMHG (79-93); ABG TCO2 19.1 MMOL/L (21.0-31.0)
[2017-04-30 05:52] LABS: BASOPHILS % (AUTO) 0 % (0-10); EOSINOPHILS % (AUTO) 0 % (0-10); LYMPHOCYTES # (AUTO) 0.3 X 10^3 (1.0-4.0); LYMPHOCYTES % (AUTO) 3 % (12-44); MEAN CORPUSCULAR HEMOGLOBIN 25 PG (25-34); MEAN CORPUSCULAR HGB CONC 29 G/DL (32-36); MEAN CORPUSCULAR VOLUME 85 FL (80-99); MEAN PLATELET VOLUME 9.4 FL (7.4-10.4); MONOCYTES # (AUTO) 0.2 X 10^3 (0.0-1.0); MONOCYTES % (AUTO) 2 % (0-12); NEUTROPHILS # (AUTO) 10.4 X 10^3 (1.8-7.8); NEUTROPHILS % (AUTO) 96 % (42-75); PLATELET COUNT 137 10^3/uL (130-400); RED BLOOD COUNT 3.26 10^6/uL (4.35-5.85); RED CELL DISTRIBUTION WIDTH 20.9 % (10.0-14.5); WHITE BLOOD COUNT 10.9 10^3/uL (4.3-11.0)
[2017-04-30 05:53] LABS: ALLENS TEST ART LINE
[2017-04-30] MEDS: NS IV 1000 ML 1,000 ML IV SCH (05:58)
[2017-04-30 06:16] LABS: CALCIUM 7.6 MG/DL (8.5-10.1); CREATININE SERUM 1.45 MG/DL (0.60-1.30); PHOSPHORUS 3.3 MG/DL (2.3-4.7); POTASSIUM 3.3 MMOL/L (3.6-5.0)
[2017-04-30] MEDS: POTASSIUM CL 10MEQ/50ML IVPB 50 ML IV SCH ×8 (06:30→09:43)
[2017-04-30] MEDS: KCL 20 MEQ TAB (K-DUR) PO SCH (06:31)
[2017-04-30] MEDS: MAGNESIUM 1 GM/100 ML IVPB 100 ML IV SCH (06:31)
[2017-04-30] MEDS: HYDROCORTISONE 100 MG/2 ML (Solu-CORTEF) VIAL IV SCH (06:35)
[2017-04-30] MEDS ORDERED: DEXMEDETOMIDINE INJECTION 200 MCG in NS (IVPB) 50 ML IV SCH (08:00)
--- NOTE | 2017-04-30 08:04 | Pulmonary Progress Note ---
Subjective Time Seen by Provider: 08:04 Subjective/Events-last exam Pt is only requiring 2mcg of levophed Exam Exam Vital Signs Date Time Temp Pulse Resp B/P (MAP) Pulse Ox O2 Delivery O2 Flow Rate FiO2 04/30/17 07:39 126 25 97 25 04/30/17 06:29 123 27 99 25 04/30/17 06:00 114 16 133/57 98 Mechanical Ventilator 25.00 04/30/17 05:00 120 17 132/60 99 Mechanical Ventilator 25.00 04/30/17 04:01 107 04/30/17 04:00 100 Mechanical Ventilator 25 04/30/17 04:00 114 9 141/62 99 Mechanical Ventilator 25.00 04/30/17 04:00 117 26 99 25 04/30/17 03:00 103 10 139/62 99 Mechanical Ventilator 25.00 04/30/17 02:15 114 24 99 25 04/30/17 02:00 98 23 142/63 99 Mechanical Ventilator 25.00 04/30/17 01:00 105 24 139/60 99 Mechanical Ventilator 25.00 04/30/17 01:00 111 04/30/17 00:08 112 21 98 25 04/30/17 00:00 100 Mechanical Ventilator 25 04/30/17 00:00 97.0 04/30/17 00:00 103 11 127/56 99 Mechanical Ventilator 25.00 04/29/17 23:00 111 16 121/58 98 Mechanical Ventilator 25.00 04/29/17 22:57 97.7 126 24 123/57 99 Mechanical Ventilator 25.00 04/29/17 22:10 126 24 99 25 04/29/17 22:00 112 8 122/56 98 Mechanical Ventilator 25.00 04/29/17 21:00 128 21 126/58 99 Mechanical Ventilator 25.00 04/29/17 20:01 124 23 98 25 04/29/17 20:00 110 18 111/53 98 Mechanical Ventilator 25.00 04/29/17 20:00 100 Mechanical Ventilator 25 04/29/17 20:00 97.7 04/29/17 19:00 133 9 122/59 98 Mechanical Ventilator 25.00 04/29/17 19:00 136 04/29/17 18:00 129 17 114/53 98 Mechanical Ventilator 25.00 04/29/17 17:48 121 21 98 25 04/29/17 17:00 122 24 122/60 88 Mechanical Ventilator 25.00 04/29/17 16:22 116 19 100 25 04/29/17 16:00 131 11 121/56 95 Mechanical Ventilator 25.00 04/29/17 16:00 100 Mechanical Ventilator 25 04/29/17 15:58 97.4 111 20 121/55 91 Mechanical Ventilator 25.00 04/29/17 15:15 Mechanical Ventilator 25.00 04/29/17 14:36 108 20 100 25 04/29/17 14:00 111 8 113/58 100 Mechanical Ventilator 25.00 04/29/17 13:00 107 04/29/17 12:03 118 20 100 25 04/29/17 12:00 100 Mechanical Ventilator 25 04/29/17 10:59 97.6 117 20 130/61 100 Mechanical Ventilator 25.00 04/29/17 10:25 111 22 100 25 04/29/17 09:00 126 18 110/48 96 Mechanical Ventilator 25.00 04/29/17 08:12 120 23 98 25 I & O 04/30/17 07:00 Intake Total 3608 ml Output Total 1855 ml Balance 1753 ml General Appearance: WD/WN, Chronically ill, Obese, Other (intubated and sedated ) HEENT: Normal ENT Inspection, Other (intubated) Neck: Normal Inspection, Supple Respiratory: No Accessory Muscle Use, No Respiratory Distress, Other Cardiovascular: Regular Rate, Rhythm Capillary Refill: Less Than 3 Seconds Gastrointestinal: soft (Open midline skin) Extremity: Normal Capillary Refill, Normal Inspection, Pedal Edema Neurologic/Psychiatric: Other (sedated and intubated. Responded to RN commands) Skin: Mottled, Pallor, Other (Upper and lower extremity edema anasarca. Patient to have wound vac to incision site from surgery yesterday. Clean and dry this Am. no signs of drainage noted to wound. ) Lymphatic: No Adenopathy Results Lab Laboratory Tests 04/29/17 03:58 04/30/17 05:45 Assessment/Plan Assessment/Plan VDRF -Start weaning today- No plan to extubate today -D/C diprivan -start precedex tlectasis RLL with probable mucous plugging weaning trials daily -Cultures are negative -s/p bedside bronchoscopy -Keep Fentanyl and Diprivan for now Gastric perforation s/p surgery -Pain control Acute on chronic renal failure -Continue IVF and monitoring Hypokalemia -replace Septic shock -continue vanco, zosyn, diflucan -repeat NS bolus 1 liter -Titrate levophed -Continue solucortef Anasarca NSTEMI CHF -monitor Labs and radiology reviewed UPDATE AFTER FAMILY MEETING. [id number] spent with patient and medical team I discussed with family patients current condition and prognosis. They state that he had poor quality of life prior this acute event. They state he actually never wanted to be on ventilator and was actually a DNR prior to admit. Family has decided to make patient comfort care only. Will follow family wishes and make patient comfort care only. Clinical Quality Measures DVT/VTE Risk/Contraindication: Risk Factor Score Per Nursin RFS Level Per Nursing on Admit: 4+=Very High CAPRI SILVEIRA DO Apr 30, 2017 08:04
--- NOTE | 2017-04-30 09:06 | Diagnostic Imaging Report ---
INDICATION: Dyspnea. COMPARISON STUDY: Chest from yesterday. FINDINGS: A frontal view of the chest demonstrates stable cardiomegaly and post operative changes with a cardiac pacemaker. The right pleural effusion is unchanged. There has been development of a left pleural effusion with adjacent atelectasis. The vascularity is normal. IMPRESSION: Intubated chest with a stable right pleural effusion. A left pleural effusion has developed with adjacent atelectasis. Dictated by: Dictated on workstation # [id number]
--- OUTSIDE RECORDS SUMMARY | 2017-04-30 09:07 | XMS REPORT | Continuity of Care Document ---
Author Author [facility] Organization [facility] Address Unknown Phone Unavailable Care Team Providers Care Senior [employer]i Web Developer Name Role Phone PCP Unavailable Source Comments Some departments are not documenting in the electronic medical record. If you do not see the information that you expected, contact Release of Information in the Health Information Management department at [phone] for further assistance in locating additional records.[facility] Active Allergies and Adverse Reactions Allergen Noted [...] Vaccine 1992 Prevnar/Pneumovax (#1) 1997 Influenza Vaccine 06/21/2017 Results from Last 3 Months Not on file
--- OUTSIDE RECORDS SUMMARY | 2017-04-30 09:11 | XMS REPORT | Continuity of Care Document ---
Author Author [facility] Organization [facility] Address Unknown Phone Unavailable Allergies Active Description Code Type Severity Reaction Onset Reported/Identified Relationship to Patient Clinical Status Yes KEELEY Inhibitors [id number] Drug Allergy Unknown N/A 07/14/2012 Yes KEELEY Inhibitors [id number] Drug Allergy Moderate N/A 03/30/2015 Yes atenolol [id number] Drug Allergy Moderate swelling throat 03/30/2015 Yes metoprolol [id number] Drug Allergy Unknown N/A 03/30/2015 Yes STATIN DRUGS STATIN DRUGS Unknown N/A 10/27/2015 Yes KEELEY Inhibitors [id number] Drug Allergy Severe wheezing and sw 11/01/2015 Yes atenolol [id number] Drug Allergy Severe swelling throat 11/01/2015 Yes metoprolol [id number] Drug Allergy Severe N/A 11/01/2015 Yes metoprolol [id number] Drug Allergy Severe throat swelling 11/01/2015 Yes Uxkrosi-Riv-Rsh Reductase Inhibitor [id number] Drug Allergy Unknown N/A 11/01/2015 Medications Problems Date Dx Coded Attending Type Code Diagnosis Diagnosed By 07/14/2012 Ot 511.9 PLEURAL EFFUSION NOS 07/14/2012 Ot 518.0 PULMONARY COLLAPSE 07/14/2012 Ot 786.50 CHEST PAIN NOS 07/14/2012 Ot 789.00 ABDOMINAL PAIN, UNSPECIFIED SITE 12/21/2012 Ot 427.31 ATRIAL FIBRILLATION 12/21/2012 Ot V58.61 ANTICOAGULANTS,LT,CURRENT USE 03/22/2013 Ot 427.31 ATRIAL FIBRILLATION 03/22/2013 Ot V58.61 ANTICOAGULANTS,LT,CURRENT USE 07/19/2013 GERDA LEIVA Ot 427.31 ATRIAL FIBRILLATION 12/20/2013 OTHER, UNLISTED Ot 427.31 ATRIAL FIBRILLATION 04/22/2014 OTHER, UNLISTED Ot 427.31 ATRIAL FIBRILLATION 08/09/2014 OTHER, UNLISTED Ot 427.31 ATRIAL FIBRILLATION 09/01/2014 OTHER, UNLISTED Ot 427.31 10/20/2014 OTHER, UNLISTED Ot 427.31 11/21/2014 OTHER, UNLISTED Ot 427.31 ATRIAL FIBRILLATION 2014 ALISSON BAUGH, SARA R Ot V58.61 2014 ALISSON BAUGH, SARA R Ot V58.83 11/25/2014 COOPER BAUGH, JUAN G Ot 414.00 11/25/2014 COOPER BAUGH, JUAN G Ot 427.31 11/25/2014 COOPER BAUGH, JUAN G Ot V45.01 11/25/2014 ALISSON BAUGH, SARA R Ot V58.61 11/25/2014 ALISSON BAUGH, SARA R Ot V58.83 11/25/2014 OTHER, UNLISTED Ot 427.31 12/15/2014 COOPER BAUGH, JUAN Churchill Ot 414.00 12/15/2014 COOPER BAUGH, JUAN Churchill Ot 427.31 12/15/2014 COOPER BAUGH, JUAN Churchill Ot V45.01 12/16/2014 ALISSON BAUGH, SARA R Ot V58.61 12/16/2014 ALISSON BAUGH, SARA R Ot V58.83 02/17/2015 ALISSON BAUGH, SARA R Ot V58.61 ANTICOAGULANTS,LT,CURRENT USE 02/17/2015 ALISSON BAUGH, SARA R Ot V58.83 ENCOUNTER FOR THERAPEUTIC DRUG MONITORIN 02/23/2015 ALISSON BAUGH, SARA R Ot V58.61 02/23/2015 ALISSON BAUGH, SARA R Ot V58.83 02/23/2015 ALISSON BAUGH, SARA R Ot V58.61 02/23/2015 ALISSON BAUGH, SARA R Ot V58.83 02/24/2015 ALISSON BAUGH, SARA R Ot V58.61 02/24/2015 ALISSON BAUGH, SARA R Ot V58.83 02/24/2015 ALISSON BAUGH, SARA R Ot V58.61 02/24/2015 ALISSON ABUGH, SARA R Ot V58.83 03/19/2015 COOPER BAUGH, JUAN [place] Ot 414.00 03/19/2015 COOPER BAUGH, JUAN Churchill Ot 427.31 03/19/2015 COOPER BAUGH, JUAN Churchill Ot V58.61 03/19/2015 COOPER BAUGH, JUAN G Ot V58.83 03/30/2015 OTHER, UNLISTED Ot 427.31 03/30/2015 ALISSON BAUGH, SARA R Ot V58.61 03/30/2015 ALISSON BAUGH, SARA R Ot V58.83 03/30/2015 OTHER, UNLISTED Ot 427.31 03/30/2015 ALISSON BAUGH, SARA R Ot V58.61 03/30/2015 ALISSON BAUGH, SARA R Ot V58.83 04/04/2015 ALISSON BAUGH, SARA R Ot 300.29 OTHER ISOLATED OR SPECIFIC PHOBIAS 04/04/2015 ALISSON BAUGH, SARA R Ot 327.23 OBSTRUCTIVE SLEEP APNEA (ADULT) (PEDIATR 04/04/2015 ALISSON BAUGH, SARA R Ot 365.9 GLAUCOMA NOS 04/04/2015 ALISSNO BAUGH, SARA R Ot 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 KID DIS, UNSPEC, W CHR KD ST 04/04/2015 ALISSON BAUGH, SARA R Ot 412 OLD MYOCARDIAL INFARCT 04/04/2015 ALISSON BAUGH, SARA R Ot 414.00 CORON ATHEROSCLER NOS TYPE VESSEL, NATIV 04/04/2015 ALISSON BAUGH, SARA R Ot 427.1 PAROX VENTRIC TACHYCARD 04/04/2015 ALISSON BAUGH, SARA R Ot 427.31 ATRIAL FIBRILLATION 04/04/2015 ALISSON BAUGH, SARA R Ot 427.32 ATRIAL FLUTTER 04/04/2015 ALISSON BAUGH, SARA R Ot 428.0 CONGESTIVE HEART FAILURE NOS 04/04/2015 SARA VINSON MD R Ot 428.31 ACUTE DIASTOLIC HRT FAILURE 04/04/2015 ALISSON BAUGH, SARA R Ot 429.3 CARDIOMEGALY 04/04/2015 ALISSON BAUGH, SARA R Ot 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 04/04/2015 ALISSON BAUGH, SARA R Ot 459.81 VENOUS INSUFFICIENCY NOS 04/04/2015 ALISSON BAUGH, SARA R Ot 486 04/04/2015 ALISSON BAUGH, SARA R Ot 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 04/04/2015 ALISSON BAUGH, SARA R Ot 530.81 ESOPHAGEAL REFLUX 04/04/2015 ALISSON BAUGH, SARA R Ot 584.9 ACUTE RENAL FAILURE, UNSPECIFIED 04/04/2015 ALISSON BAUGH, SARA R Ot 585.9 CHRONIC KIDNEY DISEASE, UNSPECIFIED 04/04/2015 ALISSON BAUGH, SARA R Ot 600.00 HYPERTROPHY (BENIGN) OF PROSTATE W/O URI 04/04/2015 ALISSON BAUGH, SARA R Ot 726.91 EXOSTOSIS, SITE NOS 04/04/2015 ALISSON BAUGH, SARA R Ot 784.2 SWELLING IN HEAD NECK 04/04/2015 SARA VINSON MD R Ot 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 04/04/2015 ALISSON BAUGH, SARA R Ot E941.3 ADV EFF SYMPATHOLYTICS 04/04/2015 SARA VINSON MD R Ot V15.82 HISTORY OF TOBACCO USE 04/04/2015 SARA VINSON MD R Ot V45.01 CARDIAC PACEMAKER IN SITU 04/04/2015 SARA VINSON MD R Ot V45.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 BYPASS 04/04/2015 SARA VINSON MD R Ot V45.89 POSTSURGICAL STATES NEC 04/04/2015 ALISSON BAUGH, SARA R Ot V58.61 ANTICOAGULANTS,LT,CURRENT USE 04/04/2015 ALISSON BAUGH, SARA R Ot V60.3 PERSON LIVING ALONE 04/13/2015 ALISSON BAUGH, SARA R Ot V58.61 04/13/2015 ALISSON BAUGH, SARA R Ot V58.83 05/24/2015 ALISSON BAUGH, SARA R Ot V58.61 ANTICOAGULANTS,LT,CURRENT USE 05/24/2015 ALISSON BAUGH, SRAA R Ot V58.83 ENCOUNTER FOR THERAPEUTIC DRUG MONITORIN 05/26/2015 ALISSON BAUGH, SARA R Ot V58.61 05/26/2015 ALISSON BAUGH, SARA R Ot V58.83 05/26/2015 ALISSON BAUGH, SARA R Ot V58.61 05/26/2015 ALISSON BAUGH, SARA R Ot V58.83 05/27/2015 ALISSON BAUGH, SARA R Ot V58.61 05/27/2015 ALISSON BAUGH, SARA R Ot V58.83 06/08/2015 SALVADOR CANALES APRN Ot 327.23 06/08/2015 SALVADOR CANALES APRN Ot 427.31 06/08/2015 SALVADOR CANALES APRN Ot 799.02 06/17/2015 SALVADOR CANALES APRN Ot 327.23 OBSTRUCTIVE SLEEP APNEA (ADULT) ( PEDIATR 07/12/2015 SARA VINSON MD R Ot V58.61 07/12/2015 SARA VINSON MD R Ot V58.83 07/15/2015 CAPRI SILVEIRA DO Ot 327.23 07/15/2015 CAPRI SILVEIRA DO Ot 799.02 07/20/2015 SARA VINSON MD R Ot V58.61 ANTICOAGULANTS,LT,CURRENT USE 07/20/2015 SARA VINSON MD R Ot V58.83 ENCOUNTER FOR THERAPEUTIC DRUG MONITORIN 07/21/2015 SARA VINSON MD R Ot V58.61 07/21/2015 SARA VINSON MD R Ot V58.83 08/02/2015 SARA VINSON MD R Ot Z51.81 08/02/2015 SARA VINSON MD R Ot Z79.01 08/08/2015 CAPRI SILVEIRA DO Ot 327.23 08/08/2015 CAPRI SILVEIRA DO Ot 799.02 08/25/2015 SALVADOR CANALES APRN Ot G47.33 08/25/2015 SALVADOR CANALES WAGON DRILLER Ot J90 08/25/2015 SALVADOR CANALES WAGON DRILLER Ot R06.00 08/25/2015 SALVADOR CANALES WAGON DRILLER Ot R09.02 09/12/2015 SARA VINSON MD R Ot Z51.81 09/12/2015 SARA VINSON MD R Ot Z79.01 09/14/2015 SALVADOR CANALES APRN Ot G47.33 09/14/2015 SALVADOR CANALES APRN Ot J90 09/14/2015 SALVADOR CANALES APRN Ot R06.00 09/14/2015 SALVADOR CANALES APRN Ot R09.02 10/19/2015 SARA VINSON MD R Ot Z51.81 ENCOUNTER FOR THERAPEUTIC DRUG LEVEL MON 10/19/2015 SARA VINSON MD R Ot Z79.01 FCI (CURRENT) USE OF ANTICOAGULANT 10/27/2015 OTHER, UNLISTED Ot 427.31 10/27/2015 ALISSON BAUGH, SARA R Ot Z51.81 10/27/2015 ALISSON BAUGH, SARA R Ot Z79.01 11/01/2015 OTHER, UNLISTED Ot 427.31 11/01/2015 ALISSON BAUGH, SARA R Ot D64.9 11/01/2015 ALISSON BAUGH, SARA R Ot G47.30 11/01/2015 ALISSON BAUGH, SARA R Ot H40.9 11/01/2015 ALISSON BAUGH, SARA R Ot I12.9 11/01/2015 ALISSON BAUGH, SARA R Ot I25.10 11/01/2015 ALISSON BAUGH, SARA R Ot I25.2 11/01/2015 ALISSON BAUGH, SARA R Ot I27.2 11/01/2015 ALISSON BAUGH, SARA R Ot I48.91 11/01/2015 ALISSON BAUGH, SARA R Ot I50.32 11/01/2015 ALISSON BAUGH, SARA R Ot N18.9 11/01/2015 ALISSON BAUGH, SARA R Ot R19.5 11/01/2015 ALISSON BAUGH, SARA R Ot Z87.891 11/01/2015 ALISSON BAUGH, SARA R Ot Z95.0 11/01/2015 ALISSON BAUGH, SARA R Ot Z95.1 11/01/2015 ALISSON BAUGH, SARA R Ot Z95.2 11/01/2015 ALISSON BAUGH, SARA R Ot Z95.5 11/01/2015 OTHER, UNLISTED Ot 427.31 11/01/2015 ALISSON BAUGH, SARA R Ot D64.9 11/01/2015 ALISSON BAUGH, SARA R Ot G47.30 11/01/2015 ALISSON BAUGH, SARA R Ot H40.9 11/01/2015 ALISSON BAUGH, SARA R Ot I12.9 11/01/2015 ALISSON BAUGH, SARA R Ot I25.10 11/01/2015 ALISSON BAUGH, SARA R Ot I25.2 11/01/2015 ALISSON BAUGH, SARA R Ot I27.2 11/01/2015 ALISSON BAUGH, SARA R Ot I48.91 11/01/2015 ALISSON BAUGH, SARA R Ot I50.32 11/01/2015 ALISSON BAUGH, SARA R Ot N18.9 11/01/2015 ALISSON BAUGH, SARA R Ot R19.5 11/01/2015 ALISSON BAUGH, SARA R Ot Z87.891 11/01/2015 ALISSON BAUGH, SARA R Ot Z95.0 11/01/2015 ALISSON BAUGH, SARA R Ot Z95.1 11/01/2015 ALISSON BAUGH, SARA R Ot Z95.2 11/01/2015 ALISSON BAUGH, SARA R Ot Z95.5 11/02/2015 ALISSON BAUGH, SARA R Ot D64.9 11/02/2015 ALISSON BAUGH, SARA R Ot G47.30 11/02/2015 ALISSON BAUGH, SARA R Ot H40.9 11/02/2015 ALISSON BAUGH, SARA R Ot I12.9 11/02/2015 ALISSON BAUGH, SARA R Ot I25.10 11/02/2015 ALISSON BAUGH, SARA R Ot I25.2 11/02/2015 ALISSON BAUGH, SARA R Ot I27.2 11/02/2015 ALISSON BAUGH, SARA R Ot I48.91 11/02/2015 ALISSON BAUGH, SARA R Ot I50.32 11/02/2015 ALISSON BAUGH, SARA R Ot N18.9 11/02/2015 ALISSON BAUGH, SARA R Ot R19.5 11/02/2015 ALISSON BAUGH, SARA R Ot Z87.891 11/02/2015 ALISSON BAUGH, SARA R Ot Z95.0 11/02/2015 ALISSON BAUGH, SARA R Ot Z95.1 11/02/2015 ALISSON BAUGH, SARA R Ot Z95.2 11/02/2015 ALISSON BAUGH, SARA R Ot Z95.5 11/02/2015 ALISSON BAUGH, SARA R Ot D64.9 ANEMIA, UNSPECIFIED 11/02/2015 ALISSON BAUGH, SARA R Ot G47.30 SLEEP APNEA, UNSPECIFIED 11/02/2015 ALISSON BAUGH, SARA R Ot H40.9 UNSPECIFIED GLAUCOMA 11/02/2015 ALISSON BAUGH, SARA R Ot I12.9 HYPERTENSIVE CHRONIC KIDNEY DISEASE W ST 11/02/2015 ALISSON BAUGH, SARA R Ot I25.10 ATHSCL HEART DISEASE OF [place] CORONARY 11/02/2015 ALISSON BAUGH, SARA R Ot I25.2 OLD MYOCARDIAL INFARCTION 11/02/2015 ALISSON BAUGH, SARA R Ot I27.2 OTHER SECONDARY PULMONARY HYPERTENSION 11/02/2015 SARA VINSON MD R Ot I48.91 UNSPECIFIED ATRIAL FIBRILLATION 11/02/2015 FLORA VINSON MDYD R Ot I50.32 11/02/2015 SARA VINSON MD R Ot I50.33 ACUTE ON CHRONIC DIASTOLIC (CONGESTIVE) 11/02/2015 SARA VINSON MD R Ot N18.9 CHRONIC KIDNEY DISEASE, UNSPECIFIED 11/02/2015 SARA VINSON MD R Ot R19.5 OTHER FECAL ABNORMALITIES 11/02/2015 SARA VINSON MD R Ot Z87.891 PERSONAL HISTORY OF NICOTINE DEPENDENCE 11/02/2015 SARA VINSON MD R Ot 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 PACEMAKER 11/02/2015 SARA VINSON MD Ot Z95.1 PRESENCE OF AORTOCORONARY BYPASS GRAFT 11/02/2015 SARA VINSON MD Ot Z95.2 PRESENCE OF PROSTHETIC HEART VALVE 11/02/2015 SARA VINSON MD R Ot 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 IMPLANT 12/11/2015 RAMSEY CONTRERAS MD Ot R04.0 EPISTAXIS 12/11/2015 RAMSEY CONTRERAS MD Ot Z79.01 FCI (CURRENT) USE OF ANTICOAGULANT 12/14/2015 SARA VINSON MD R Ot Z51.81 12/14/2015 SARA VINSON MD R Ot Z79.01 12/15/2015 Ot R06.02 12/15/2015 Ot Z95.2 12/16/2015 Ot E05.90 12/16/2015 Ot I25.10 12/16/2015 Ot I48.91 12/16/2015 Ot I50.9 12/16/2015 SARA VINSON MD R Ot E11.9 12/16/2015 SARA VINSON MD R Ot I48.91 12/16/2015 SARA VINSON MD R Ot I50.9 01/16/2016 Ot R06.02 01/16/2016 Ot Z95.2 01/17/2016 JIN BAUGH FAC, ALI FACP CCDS Ot G47.32 01/17/2016 JIN BAUGH FAC, ALI FACP CCDS Ot I10 01/17/2016 JIN BAUGH FAC, ALI FACP CCDS Ot I25.10 01/17/2016 JIN [facility]AU[facility], ALI FACP CCDS Ot I48.2 01/17/2016 JIN BAUGH [facility], ALI FACP CCDS Ot I50.32 01/17/2016 JIN [facility]AUGH [facility], ALI FACP CCDS Ot Z79.01 01/17/2016 JIN [facility]AUGH [facility], ALI FACP CCDS Ot Z95.1 01/24/2016 ANSELMO HAM AUTOMOTIVE EXHAUST EMISSIONS TECHNICIAN Ot I10 01/24/2016 ANSELMO HAM AUTOMOTIVE EXHAUST EMISSIONS TECHNICIAN Ot I50.32 01/25/2016 SARA VINSON MD R Ot Z51.81 ENCOUNTER FOR THERAPEUTIC DRUG LEVEL MON 01/25/2016 SARA VINSON MD R Ot Z79.01 FCI (CURRENT) USE OF ANTICOAGULANT 01/26/2016 SARA VINSON MD R Ot Z51.81 01/26/2016 SARA VINSON MD R Ot Z79.01 02/14/2016 ANSELMO AHM AUTOMOTIVE EXHAUST EMISSIONS TECHNICIAN Ot I10 ESSENTIAL (PRIMARY) HYPERTENSION 02/14/2016 ANSELMO HAM AUTOMOTIVE EXHAUST EMISSIONS TECHNICIAN Ot I50.32 CHRONIC DIASTOLIC (CONGESTIVE) HEART WINTER 03/06/2016 SARA VINSON MD R Ot Z51.81 ENCOUNTER FOR THERAPEUTIC DRUG LEVEL MON 03/06/2016 SARA VINSON MD R Ot Z79.01 FCI (CURRENT) USE OF ANTICOAGULANT 03/07/2016 SARA VINSON MD R Ot Z51.81 ENCOUNTER FOR THERAPEUTIC DRUG LEVEL MON 03/07/2016 SARA VINSON MD R Ot Z79.01 FCI (CURRENT) USE OF ANTICOAGULANT 03/09/2016 SARA VINSON MD R Ot Z51.81 ENCOUNTER FOR THERAPEUTIC DRUG LEVEL MON 03/09/2016 SARA VINSON MD R Ot 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 04/03/2016 SARA VINSON MD R Ot Z51.81 ENCOUNTER FOR THERAPEUTIC DRUG LEVEL MON 04/03/2016 SARA VINSON MD R Ot Z79.01 FCI (CURRENT) USE OF ANTICOAGULANT 04/04/2016 JIN BAUGH FACC, ALI FACP CCDS Ot I10 ESSENTIAL (PRIMARY) HYPERTENSION 04/04/2016 JIN BAUGH FACC, ALI FACP CCDS Ot I25.10 ATHSCL HEART DISEASE OF [place] CORONARY 04/04/2016 JIN BAUGH FACC, ALI FACP CCDS Ot I50.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 DIASTOLIC (CONGESTIVE) HEART WINTER 04/04/2016 JIN BAUGH FACC, ALI FACP CCDS Ot K21.9 GASTRO-ESOPHAGEAL REFLUX DISEASE WITHOUT 04/04/2016 JIN BAUGH FACC, ALI FACP CCDS Ot R06.02 SHORTNESS OF BREATH 04/04/2016 JIN BAUGH FACC, ALI FACP CCDS Ot Z79.01 FCI (CURRENT) USE OF ANTICOAGULANT 04/04/2016 JIN BAUGH FACC, ALI FACP CCDS Ot Z95.1 PRESENCE OF AORTOCORONARY BYPASS GRAFT 04/25/2016 JIN BAUGH FACC, ALI FACP CCDS Ot I10 ESSENTIAL (PRIMARY) HYPERTENSION 04/25/2016 JIN BAUGH FACC, ALI FACP CCDS Ot I25.10 ATHSCL HEART DISEASE OF [place] CORONARY 04/25/2016 JIN BAUGH FACC, ALI FACP CCDS Ot I50.32 CHRONIC DIASTOLIC (CONGESTIVE) HEART WINTER 04/25/2016 JIN COTTOC, ALI FACP CCDS Ot K21.9 GASTRO-ESOPHAGEAL REFLUX DISEASE WITHOUT 04/25/2016 JIN COTTOC, ALI FACP CCDS Ot R06.02 SHORTNESS OF BREATH 04/25/2016 JIN BAUGH FACC, ALI FACP CCDS Ot 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 04/25/2016 JIN BAUGH FACC, ALI FACP CCDS Ot Z95.1 PRESENCE OF AORTOCORONARY BYPASS GRAFT 05/25/2016 SARA VINSON MD R Ot Z51.81 ENCOUNTER FOR THERAPEUTIC DRUG LEVEL MON 05/25/2016 SARA VINSON MD R Ot 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 06/04/2016 SARA VINSON MD R Ot Z51.81 ENCOUNTER FOR THERAPEUTIC DRUG LEVEL MON 06/04/2016 SARA VINSON MD R Ot 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 06/05/2016 SARA VINSON MD R Ot Z51.81 ENCOUNTER FOR THERAPEUTIC DRUG LEVEL MON 06/05/2016 SARA VINSON MD R Ot 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 06/22/2016 SARA VINSON MD R Ot Z51.81 ENCOUNTER FOR THERAPEUTIC DRUG LEVEL MON 06/22/2016 SARA VINSON MD R Ot 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 06/27/2016 SARA VINSON MD R Ot Z51.81 ENCOUNTER FOR THERAPEUTIC DRUG LEVEL MON 06/27/2016 SARA VINSON MD R Ot Z79.01 FCI (CURRENT) USE OF ANTICOAGULANT 07/30/2016 SARA VINSON MD R Ot Z51.81 ENCOUNTER FOR THERAPEUTIC DRUG LEVEL MON 07/30/2016 SARA VINSON MD R Ot Z79.01 [facility]CI (CURRENT) USE OF ANTICOAGULANT 08/16/2016 SARA VINSON MD R Ot Z51.81 ENCOUNTER FOR THERAPEUTIC DRUG LEVEL MON 08/16/2016 SARA VINSON MD R Ot Z79.01 [facility]CI (CURRENT) USE OF ANTICOAGULANT 09/19/2016 SARA VINSON MD R Ot Z51.81 ENCOUNTER FOR THERAPEUTIC DRUG LEVEL MON 09/19/2016 SARA VINSON MD R Ot Z79.01 [facility]CI (CURRENT) USE OF ANTICOAGULANT 09/25/2016 JUAN GAMBOA MD Ot 414.00 CORON ATHEROSCLER NOS TYPE VESSEL, NATIV 09/25/2016 JUAN GAMBOA MD Ot 427.31 ATRIAL FIBRILLATION 09/25/2016 JUAN GAMBOA MD Ot V45.01 CARDIAC PACEMAKER IN SITU 09/25/2016 JUAN GAMBOA MD Ot 414.00 CORON ATHEROSCLER NOS TYPE VESSEL, NATIV 09/25/2016 JUAN GAMBOA MD Ot 427.31 ATRIAL FIBRILLATION 09/25/2016 JUAN GAMBOA MD Ot V58.61 ANTICOAGULANTS,LT,CURRENT USE 09/25/2016 JUAN GAMBOA MD Ot V58.83 ENCOUNTER FOR THERAPEUTIC DRUG MONITORIN 09/25/2016 OTHER, UNLISTED Ot 427.31 ATRIAL FIBRILLATION 09/25/2016 SALVADOR CANALES WAGON DRILLER Ot 327.23 OBSTRUCTIVE SLEEP APNEA (ADULT) ( PEDIATR 09/25/2016 SALVADOR CANALES WAGON DRILLER Ot 427.31 ATRIAL FIBRILLATION 09/25/2016 SALVADOR CANALES WAGON DRILLER Ot 799.02 HYPOXEMIA 09/25/2016 RAOUL WORKMAN CAPRI M Ot 327.23 OBSTRUCTIVE SLEEP APNEA (ADULT) (PEDIATR 09/25/2016 RAOUL WORKMAN CAPRI Cole Ot 799.02 HYPOXEMIA 09/25/2016 SALVADOR CANALES APRN Ot G47.33 OBSTRUCTIVE SLEEP APNEA (ADULT) ( PEDIATR 09/25/2016 SALVADOR CANALES WAGON DRILLER Ot J90 PLEURAL EFFUSION, NOT ELSEWHERE CLASSIFI 09/25/2016 SALVADOR CANALES APRN Ot R06.00 DYSPNEA, UNSPECIFIED 09/25/2016 SALVADOR CANALES APRN Ot R09.02 HYPOXEMIA 09/25/2016 Ot R06.02 SHORTNESS OF BREATH 09/25/2016 Ot Z95.2 PRESENCE OF PROSTHETIC HEART VALVE 09/25/2016 Ot E05.90 THYROTOXICOSIS, UNSP WITHOUT THYROTOXIC 09/25/2016 Ot I25.10 ATHSCL HEART DISEASE OF [place] CORONARY 09/25/2016 Ot I48.91 UNSPECIFIED ATRIAL FIBRILLATION 09/25/2016 Ot I50.9 HEART FAILURE, UNSPECIFIED 09/25/2016 ASRA VINSON MD Ot E11.9 TYPE 2 DIABETES MELLITUS WITHOUT COMPLIC 09/25/2016 SARA VINSON MD R Ot I48.91 UNSPECIFIED ATRIAL FIBRILLATION 09/25/2016 SARA VINSON MD R Ot I50.9 HEART FAILURE, UNSPECIFIED 09/25/2016 JIN BAUGH FACC, YUSUF FACP CCDS Ot G47.32 HIGH ALTITUDE PERIODIC BREATHING 09/25/2016 JIN BAUGH FACC, ALI FACP CCDS Ot I10 ESSENTIAL (PRIMARY) HYPERTENSION 09/25/2016 JIN BAUGH FACC, ALI FACP CCDS Ot I25.10 ATHSCL HEART DISEASE OF [place] CORONARY 09/25/2016 JIN BAUGH FACC, ALI FACP CCDS Ot I48.2 CHRONIC ATRIAL FIBRILLATION 09/25/2016 JIN BAUGH FACC, YUSUF FACP CCDS Ot I50.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 DIASTOLIC (CONGESTIVE) HEART WINTER 09/25/2016 JIN BAUGH FACC, ALI FACP CCDS Ot 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 09/25/2016 JIN BAUGH FAC, ALI FACP CCDS Ot Z95.1 PRESENCE OF AORTOCORONARY BYPASS GRAFT 09/25/2016 ANSELMO HAM L AUTOMOTIVE EXHAUST EMISSIONS TECHNICIAN Ot I10 ESSENTIAL (PRIMARY) HYPERTENSION 09/25/2016 ANSELMO HAM L AUTOMOTIVE EXHAUST EMISSIONS TECHNICIAN Ot I50.32 CHRONIC DIASTOLIC (CONGESTIVE) HEART WINTER 09/25/2016 JIN BAUGH FAC, ALI FACP CCDS Ot I10 ESSENTIAL (PRIMARY) HYPERTENSION 09/25/2016 JIN BAUGH FACC, ALI FACP CCDS Ot I25.10 ATHSCL HEART DISEASE OF [place] CORONARY 09/25/2016 JIN BAUGH FAC, ALI FACP CCDS Ot I50.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 DIASTOLIC (CONGESTIVE) HEART WINTER 09/25/2016 JIN BAUGH FACVanda, ALI FACP CCDS Ot K21.9 GASTRO-ESOPHAGEAL REFLUX DISEASE WITHOUT 09/25/2016 JIN BAUGH FAC, ALI FACP CCDS Ot R06.02 SHORTNESS OF BREATH 09/25/2016 JIN COTTO, ALI FACP CCDS Ot 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 09/25/2016 JIN COTTO, ALI FACP CCDS Ot Z95.1 PRESENCE OF AORTOCORONARY BYPASS GRAFT 09/25/2016 SARA VINSON MD R Ot Z51.81 ENCOUNTER FOR THERAPEUTIC DRUG LEVEL MON 09/25/2016 ALISSON BAUGH SARA R Ot Z79.01 [facility]CI (CURRENT) USE OF ANTICOAGULANT 09/25/2016 ALISSON BAUGH SARA R Ot Z51.81 ENCOUNTER FOR THERAPEUTIC DRUG LEVEL MON 09/25/2016 ALISSON BAUGH SARA R Ot 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 10/30/2016 SARA VINSON MD R Ot Z51.81 ENCOUNTER FOR THERAPEUTIC DRUG LEVEL MON 10/30/2016 SARA VINSON MD R Ot 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 11/02/2016 ANSELMO HAM AUTOMOTIVE EXHAUST EMISSIONS TECHNICIAN Ot I10 ESSENTIAL (PRIMARY) HYPERTENSION 11/02/2016 ANSELMO HAM L AUTOMOTIVE EXHAUST EMISSIONS TECHNICIAN Ot I25.10 ATHSCL HEART DISEASE OF [place] CORONARY 11/02/2016 BAIMA, ANSELMO L AUTOMOTIVE EXHAUST EMISSIONS TECHNICIAN Ot I48.2 CHRONIC ATRIAL FIBRILLATION 11/02/2016 BAIMA, ANSELMO L AUTOMOTIVE EXHAUST EMISSIONS TECHNICIAN Ot I50.32 CHRONIC DIASTOLIC (CONGESTIVE) HEART WINTER 11/02/2016 BAIMA, ANSELMO L AUTOMOTIVE EXHAUST EMISSIONS TECHNICIAN Ot R06.02 SHORTNESS OF BREATH 11/02/2016 BAIMA, ANSELMO L AUTOMOTIVE EXHAUST EMISSIONS TECHNICIAN Ot 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 11/16/2016 SARA VINSON MD Ot Z51.81 ENCOUNTER FOR THERAPEUTIC DRUG LEVEL MON 11/16/2016 SARA VINSON MD R Ot 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 2016 BAIMA, ANSELMO L AUTOMOTIVE EXHAUST EMISSIONS TECHNICIAN Ot I10 ESSENTIAL (PRIMARY) HYPERTENSION 2016 BAIMA, ANSELMO L AUTOMOTIVE EXHAUST EMISSIONS TECHNICIAN Ot I25.10 ATHSCL HEART DISEASE OF [place] CORONARY 2016 BAIMA, ANSELMO L AUTOMOTIVE EXHAUST EMISSIONS TECHNICIAN Ot I48.2 CHRONIC ATRIAL FIBRILLATION 2016 BAIMA, ANSELMO L AUTOMOTIVE EXHAUST EMISSIONS TECHNICIAN Ot I50.32 CHRONIC DIASTOLIC (CONGESTIVE) HEART WINTER 2016 ALBERTMA ANSELMO L AUTOMOTIVE EXHAUST EMISSIONS TECHNICIAN Ot R06.02 SHORTNESS OF BREATH 2016 BAIMA ANSELMO L AUTOMOTIVE EXHAUST EMISSIONS TECHNICIAN Ot Z79.01 [facility] (CURRENT) USE OF ANTICOAGULANT 12/12/2016 BAIMA, ANSELMO L AUTOMOTIVE EXHAUST EMISSIONS TECHNICIAN Ot I10 ESSENTIAL (PRIMARY) HYPERTENSION 12/12/2016 BAIMA, ANSELMO L AUTOMOTIVE EXHAUST EMISSIONS TECHNICIAN Ot I25.10 ATHSCL HEART DISEASE OF [place] CORONARY 12/12/2016 BAIMA, ANSELMO L AUTOMOTIVE EXHAUST EMISSIONS TECHNICIAN Ot I48.2 CHRONIC ATRIAL FIBRILLATION 12/12/2016 ALBERTMA, ANSELMO L AUTOMOTIVE EXHAUST EMISSIONS TECHNICIAN Ot I50.32 CHRONIC DIASTOLIC (CONGESTIVE) HEART WINTER 12/12/2016 BAIMA, ANSELMO L AUTOMOTIVE EXHAUST EMISSIONS TECHNICIAN Ot R06.02 SHORTNESS OF BREATH 12/12/2016 BAIMA, ANSELMO L AUTOMOTIVE EXHAUST EMISSIONS TECHNICIAN Ot Z79.01 [facility] (CURRENT) USE OF ANTICOAGULANT 12/12/2016 SARA VINSON MD R Ot Z51.81 ENCOUNTER FOR THERAPEUTIC DRUG LEVEL MON 12/12/2016 SARA VINSON MD Ot Z79.01 [facility] (CURRENT) USE OF ANTICOAGULANT 12/19/2016 ANSELMO HAM L AUTOMOTIVE EXHAUST EMISSIONS TECHNICIAN Ot G47.33 OBSTRUCTIVE SLEEP APNEA (ADULT) ( PEDIATR 12/19/2016 BAIMA, ANSELMO L AUTOMOTIVE EXHAUST EMISSIONS TECHNICIAN Ot I11.0 HYPERTENSIVE HEART DISEASE WITH HEART FA 12/19/2016 ANSELMO HAM L AUTOMOTIVE EXHAUST EMISSIONS TECHNICIAN Ot I25.10 ATHSCL HEART DISEASE OF [place] CORONARY 12/19/2016 ANSELMO HAM AUTOMOTIVE EXHAUST EMISSIONS TECHNICIAN Ot I48.2 CHRONIC ATRIAL FIBRILLATION 12/19/2016 ANSELMO HAM L AUTOMOTIVE EXHAUST EMISSIONS TECHNICIAN Ot I50.32 CHRONIC DIASTOLIC (CONGESTIVE) HEART WINTER 12/19/2016 ANSELMO HAM L AUTOMOTIVE EXHAUST EMISSIONS TECHNICIAN Ot 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 12/19/2016 ANSELMO HAM L AUTOMOTIVE EXHAUST EMISSIONS TECHNICIAN Ot 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 PACEMAKER 12/19/2016 ANSELMO HAM L AUTOMOTIVE EXHAUST EMISSIONS TECHNICIAN Ot Z95.1 PRESENCE OF AORTOCORONARY BYPASS GRAFT 12/24/2016 ALISSON BAUGH, SARA R Ot Z51.81 ENCOUNTER FOR THERAPEUTIC DRUG LEVEL MON 12/24/2016 SRAA VINSON MD R Ot 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 12/25/2016 ANSELMO HAM AUTOMOTIVE EXHAUST EMISSIONS TECHNICIAN Ot I25.10 ATHSCL HEART DISEASE OF [place] CORONARY 12/25/2016 SARA VINSON MD R Ot Z51.81 ENCOUNTER FOR THERAPEUTIC DRUG LEVEL MON 12/25/2016 SARA VINSON MD R Ot Z79.01 [facility] (CURRENT) USE OF ANTICOAGULANT 12/27/2016 ANSELMO HAM AUTOMOTIVE EXHAUST EMISSIONS TECHNICIAN Ot G47.33 OBSTRUCTIVE SLEEP APNEA (ADULT) ( PEDIATR 12/27/2016 ANSELMO HAM AUTOMOTIVE EXHAUST EMISSIONS TECHNICIAN Ot 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 12/27/2016 ANSELMO HAM L AUTOMOTIVE EXHAUST EMISSIONS TECHNICIAN Ot I25.10 ATHSCL HEART DISEASE OF [place] CORONARY 12/27/2016 ANSELMO HAM L AUTOMOTIVE EXHAUST EMISSIONS TECHNICIAN Ot I48.2 CHRONIC ATRIAL FIBRILLATION 12/27/2016 ANSELMO HAM L AUTOMOTIVE EXHAUST EMISSIONS TECHNICIAN Ot I50.32 CHRONIC DIASTOLIC (CONGESTIVE) HEART WINTER 12/27/2016 ANSELMO HAM L AUTOMOTIVE EXHAUST EMISSIONS TECHNICIAN Ot 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, STAGE 4 (SEVERE ) 12/27/2016 ANSELMO HAM L AUTOMOTIVE EXHAUST EMISSIONS TECHNICIAN Ot 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 01/01/2017 ANSELMO HAM L AUTOMOTIVE EXHAUST EMISSIONS TECHNICIAN Ot I10 ESSENTIAL (PRIMARY) HYPERTENSION 01/01/2017 BAIMA, ANSELMO L AUTOMOTIVE EXHAUST EMISSIONS TECHNICIAN Ot I25.10 ATHSCL HEART DISEASE OF [place] CORONARY 01/01/2017 BAINIESHA ANSELMO L AUTOMOTIVE EXHAUST EMISSIONS TECHNICIAN Ot I48.2 CHRONIC ATRIAL FIBRILLATION 01/01/2017 BAIMA, ANSELMO L AUTOMOTIVE EXHAUST EMISSIONS TECHNICIAN Ot I50.32 CHRONIC DIASTOLIC (CONGESTIVE) HEART WINTER 01/01/2017 KVNG HAMHER L AUTOMOTIVE EXHAUST EMISSIONS TECHNICIAN Ot R06.02 SHORTNESS OF BREATH 01/01/2017 ALBERTNIESHA ANSELMO L AUTOMOTIVE EXHAUST EMISSIONS TECHNICIAN Ot Z79.01 [facility] (CURRENT) USE OF ANTICOAGULANT 01/08/2017 BAIMA ANSELMO L AUTOMOTIVE EXHAUST EMISSIONS TECHNICIAN Ot I25.5 ISCHEMIC CARDIOMYOPATHY 01/08/2017 BAIMA, ANSELMO L AUTOMOTIVE EXHAUST EMISSIONS TECHNICIAN Ot G47.33 OBSTRUCTIVE SLEEP APNEA (ADULT) ( PEDIATR 01/08/2017 BAIMA, ANSELMO L AUTOMOTIVE EXHAUST EMISSIONS TECHNICIAN Ot I11.0 HYPERTENSIVE HEART DISEASE WITH HEART FA 01/08/2017 LABERTNIESHA ANSELMO L AUTOMOTIVE EXHAUST EMISSIONS TECHNICIAN Ot I25.10 ATHSCL HEART DISEASE OF [place] CORONARY 01/08/2017 ALBERTKVNG SCHERERHER L AUTOMOTIVE EXHAUST EMISSIONS TECHNICIAN Ot I48.2 CHRONIC ATRIAL FIBRILLATION 01/08/2017 ALBERTMA ANSELMO L AUTOMOTIVE EXHAUST EMISSIONS TECHNICIAN Ot I50.32 CHRONIC DIASTOLIC (CONGESTIVE) HEART WINTER 01/08/2017 BAINIESHA ANSELMO L AUTOMOTIVE EXHAUST EMISSIONS TECHNICIAN Ot Z79.01 [facility] (CURRENT) USE OF ANTICOAGULANT 01/08/2017 JITENDRA ANSELMO L AUTOMOTIVE EXHAUST EMISSIONS TECHNICIAN Ot 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 PACEMAKER 01/08/2017 JITENDRA ANSELMO L AUTOMOTIVE EXHAUST EMISSIONS TECHNICIAN Ot Z95.1 PRESENCE OF AORTOCORONARY BYPASS GRAFT 01/15/2017 SARA VINSON MD R Ot Z51.81 ENCOUNTER FOR THERAPEUTIC DRUG LEVEL MON 01/15/2017 SARA VINSON MD R Ot 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 01/15/2017 SARA VINSON MD R Ot Z51.81 ENCOUNTER FOR THERAPEUTIC DRUG LEVEL MON 01/15/2017 SARA VINSON MD R Ot Z79.01 [facility] (CURRENT) USE OF ANTICOAGULANT 01/16/2017 KVNG HAMHER L AUTOMOTIVE EXHAUST EMISSIONS TECHNICIAN Ot 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 ISCHEMIC CARDIOMYOPATHY 01/17/2017 JITENDRA ANSELMO L AUTOMOTIVE EXHAUST EMISSIONS TECHNICIAN Ot G47.33 OBSTRUCTIVE SLEEP APNEA (ADULT) ( PEDIATR 01/17/2017 JITENDRA ANSELMO L AUTOMOTIVE EXHAUST EMISSIONS TECHNICIAN Ot 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 01/17/2017 BAINIESHA ANSELMO L AUTOMOTIVE EXHAUST EMISSIONS TECHNICIAN Ot I25.10 ATHSCL HEART DISEASE OF [place] CORONARY 01/17/2017 JITENDRA ANSELMO L AUTOMOTIVE EXHAUST EMISSIONS TECHNICIAN Ot I48.2 CHRONIC ATRIAL FIBRILLATION 01/17/2017 BAIMA ANSELMO L AUTOMOTIVE EXHAUST EMISSIONS TECHNICIAN Ot I50.32 CHRONIC DIASTOLIC (CONGESTIVE) HEART WINTER 01/17/2017 JITENDRA, ANSELMO L AUTOMOTIVE EXHAUST EMISSIONS TECHNICIAN Ot 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, STAGE 4 (SEVERE ) 01/17/2017 JITENDRA ANSELMO L AUTOMOTIVE EXHAUST EMISSIONS TECHNICIAN Ot Z79.01 [facility] (CURRENT) USE OF ANTICOAGULANT 01/18/2017 ANSELMO HAM L AUTOMOTIVE EXHAUST EMISSIONS TECHNICIAN Ot G47.33 OBSTRUCTIVE SLEEP APNEA (ADULT) ( PEDIATR 01/18/2017 JITENDRA ANSELMO L AUTOMOTIVE EXHAUST EMISSIONS TECHNICIAN Ot 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 01/18/2017 JITENDRA ANSELMO L AUTOMOTIVE EXHAUST EMISSIONS TECHNICIAN Ot I25.10 ATHSCL HEART DISEASE OF [place] CORONARY 01/18/2017 ANSELMO HAM L AUTOMOTIVE EXHAUST EMISSIONS TECHNICIAN Ot I48.2 CHRONIC ATRIAL FIBRILLATION 01/18/2017 JITENDRA ANSELMO L AUTOMOTIVE EXHAUST EMISSIONS TECHNICIAN Ot I50.32 CHRONIC DIASTOLIC (CONGESTIVE) HEART WINTER 01/18/2017 JITENDRA ANSELMO L AUTOMOTIVE EXHAUST EMISSIONS TECHNICIAN Ot 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, STAGE 4 (SEVERE ) 01/18/2017 JITENDRA ANSELMO L AUTOMOTIVE EXHAUST EMISSIONS TECHNICIAN Ot Z79.01 [facility] (CURRENT) USE OF ANTICOAGULANT 01/24/2017 ALISSON BAUGH, SARA R Ot Z51.81 ENCOUNTER FOR THERAPEUTIC DRUG LEVEL MON 01/24/2017 SARA VINSON MD R Ot Z79.01 [facility] (CURRENT) USE OF ANTICOAGULANT 01/30/2017 ANSELMO HAM L AUTOMOTIVE EXHAUST EMISSIONS TECHNICIAN Ot 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 ISCHEMIC CARDIOMYOPATHY 01/30/2017 RAYMOND DO, SHANEKA K Ot I12.9 HYPERTENSIVE CHRONIC KIDNEY DISEASE W ST 01/30/2017 RAYMOND DO, SHANEKA K Ot I25.10 ATHSCL HEART DISEASE OF [place] CORONARY 01/30/2017 RAYMOND DO, SHANEKA K Ot I48.2 CHRONIC ATRIAL FIBRILLATION 01/30/2017 RAYMONDDwayne WORKMAN SHANEKA K Ot 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 01/30/2017 RAYMOND WORKMAN SHANEKA K Ot L97.921 NON-PRS CHR ULC UNSP PRT OF L LOW LEG LI 01/30/2017 RAYMOND DO, SHANEKA K Ot N18.9 CHRONIC KIDNEY DISEASE, UNSPECIFIED 01/30/2017 RAYMOND DO, SHANEKA K Ot R22.41 LOCALIZED SWELLING, MASS AND LUMP, RIGHT 01/30/2017 RAYMOND DO, SHANEKA K Ot R74.8 ABNORMAL LEVELS OF OTHER SERUM ENZYMES 01/30/2017 RAYMOND DO, SHANEKA K Ot Z79.01 [facility] (CURRENT) USE OF ANTICOAGULANT 01/30/2017 RAYMOND DO, SHANEKA K Ot Z79.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) DRUG THERAPY 01/30/2017 RAYMOND DO, SHANEKA K Ot Z95.1 PRESENCE OF AORTOCORONARY BYPASS GRAFT 01/30/2017 RAYMOND DO, SHANEKA K Ot Z95.2 PRESENCE OF PROSTHETIC HEART VALVE 01/30/2017 RAYMOND DO, SHANEKA K Ot 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 IMPLANT 02/01/2017 RAYMOND DO, SHANEKA K Ot I12.9 HYPERTENSIVE CHRONIC KIDNEY DISEASE W ST 02/01/2017 RAYMOND DO, SHANEKA K Ot I25.10 ATHSCL HEART DISEASE OF [place] CORONARY 02/01/2017 RAYMOND DO, SHANEKA K Ot I48.2 CHRONIC ATRIAL FIBRILLATION 02/01/2017 RAYMOND DO, SHANEKA K Ot L97.911 NON-PRS [facility] UL UNSP PRT OF R LOW LEG LI 02/01/2017 RAYMOND DO, SHANEKA K Ot L97.921 NON-PRS [facility] ULC UNSP PRT OF L LOW LEG LI 02/01/2017 RAYMOND DO, SHANEKA K Ot N18.9 CHRONIC KIDNEY DISEASE, UNSPECIFIED 02/01/2017 RAYMOND DO, SHANEKA K Ot R22.41 LOCALIZED SWELLING, MASS AND LUMP, RIGHT 02/01/2017 RAYMOND DO, SHANEKA K Ot R74.8 ABNORMAL LEVELS OF OTHER SERUM ENZYMES 02/01/2017 RAYMOND DO, SHANEKA K Ot Z79.01 [facility] (CURRENT) USE OF ANTICOAGULANT 02/01/2017 RAYMOND DO, SHANEKA K Ot Z79.899 OTHER [facility] (CURRENT) DRUG THERAPY 02/01/2017 RAYMOND DO, SHANEKA K Ot Z95.1 PRESENCE OF AORTOCORONARY BYPASS GRAFT 02/01/2017 RAYMOND DO, SHANEKA K Ot Z95.2 PRESENCE OF PROSTHETIC HEART VALVE 02/01/2017 WYATT ANDRADE DOA K Ot 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 IMPLANT 02/04/2017 ANSELMO HAM AUTOMOTIVE EXHAUST EMISSIONS TECHNICIAN Ot I25.5 ISCHEMIC CARDIOMYOPATHY 02/05/2017 ANSELMO HAM AUTOMOTIVE EXHAUST EMISSIONS TECHNICIAN Ot I25.5 ISCHEMIC CARDIOMYOPATHY 02/11/2017 ALISSON BAUGH, SARA R Ot Z51.81 ENCOUNTER FOR THERAPEUTIC DRUG LEVEL MON 02/11/2017 ALISSON BAUGH, SARA R Ot Z79.01 [facility] (CURRENT) USE OF ANTICOAGULANT 02/12/2017 ANSELMO HAM AUTOMOTIVE EXHAUST EMISSIONS TECHNICIAN Ot I25.5 ISCHEMIC CARDIOMYOPATHY 04/03/2017 JM GALVAN APRN Ot E86.9 VOLUME DEPLETION, UNSPECIFIED 04/03/2017 JM GALVAN APRN Ot 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 04/03/2017 JM GALVAN APRN Ot I25.10 ATHSCL HEART DISEASE OF [place] CORONARY 04/03/2017 JM GALVAN APRN Ot I48.91 UNSPECIFIED ATRIAL FIBRILLATION 04/03/2017 JM GALVAN APRN Ot I50.9 HEART FAILURE, UNSPECIFIED 04/03/2017 JM GALVAN APRN Ot 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10 ATHSCL HEART DISEASE OF [place] CORONARY 04/05/2017 JM GALVAN APRN Ot I48.91 UNSPECIFIED ATRIAL FIBRILLATION 04/05/2017 JM GALVAN APRN Ot I50.9 HEART FAILURE, UNSPECIFIED 04/05/2017 JM GALVAN WAGON DRILLER Ot 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 04/05/2017 JM GALVAN WAGON DRILLER Ot N18.9 CHRONIC KIDNEY DISEASE, UNSPECIFIED 04/05/2017 JM GALVAN APRN Ot R53.1 WEAKNESS 04/05/2017 JM GALVAN APRN Ot 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 04/05/2017 JM GALVAN WAGON DRILLER Ot 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 PACEMAKER 04/05/2017 JM GALVAN APRN Ot Z95.2 PRESENCE OF PROSTHETIC HEART VALVE 04/05/2017 JM GALVAN APRN Ot 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 IMPLANT 04/09/2017 JM GALVAN APRN Ot E86.9 VOLUME DEPLETION, UNSPECIFIED 04/09/2017 JM GALVAN APRN Ot 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 04/09/2017 JM GALVAN APRN Ot I25.10 ATHSCL HEART DISEASE OF [place] CORONARY 04/09/2017 JM GALVAN APRN Ot I48.91 UNSPECIFIED ATRIAL FIBRILLATION 04/09/2017 JM GALVAN APRN Ot I50.9 HEART FAILURE, UNSPECIFIED 04/09/2017 JM GALVAN APRN Ot 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 04/09/2017 JM GALVAN APRN Ot N18.9 CHRONIC KIDNEY DISEASE, UNSPECIFIED 04/09/2017 JM GALVAN APRN Ot R53.1 WEAKNESS 04/09/2017 JM GALVAN APRN Ot Z79.01 [facility] (CURRENT) USE OF ANTICOAGULANT 04/09/2017 JM GALVAN APRN Ot 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 PACEMAKER 04/09/2017 JM GALVAN APRN Ot Z95.2 PRESENCE OF PROSTHETIC HEART VALVE 04/09/2017 JM GALVAN APRN Ot 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 IMPLANT 04/12/2017 DELIO PAYTON MD Ot I50.9 HEART FAILURE, UNSPECIFIED 04/12/2017 DELIO PAYTON MD Ot 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 [facility] 04/12/2017 DELIO PAYTON MD, Ot I87.332 CHRONIC VENOUS HTN W ULCER AND INFLAMMAT 04/12/2017 DELIO PAYTON MD, Ot I89.0 LYMPHEDEMA, NOT ELSEWHERE CLASSIFIED 04/12/2017 DELIO PAYTON MD, Ot L02.416 CUTANEOUS ABSCESS OF LEFT LOWER LIMB 04/12/2017 DELIO PAYTON MD, Ot L95.9 VASCULITIS LIMITED TO THE SKIN, UNSPECIF 04/12/2017 DELIO PAYTON MD, Ot L97.222 NON-PRESSURE CHRONIC ULCER OF LEFT CALF 04/12/2017 DELIO PAYTON MD, Ot N18.5 CHRONIC KIDNEY DISEASE, STAGE 5 04/15/2017 ALISSON BAUGH, SARA Saleh Ot Z51.81 ENCOUNTER FOR THERAPEUTIC DRUG LEVEL [facility] 04/15/2017 SARA VINSON MD, Ot Z79.01 [facility] (CURRENT) USE OF ANTICOAGULANT 04/16/2017 DELIO PAYTON MD, Ot I50.9 HEART FAILURE, UNSPECIFIED 04/16/2017 DELIO PAYTON MD, Ot 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 [facility] 04/16/2017 DELIO PAYTON MD, Ot I87.332 CHRONIC VENOUS HTN W ULCER AND INFLAMMAT 04/16/2017 DELIO PAYTON MD, Ot I89.0 LYMPHEDEMA, NOT ELSEWHERE CLASSIFIED 04/16/2017 DELIO PAYTON MD, Ot L02.416 CUTANEOUS ABSCESS OF LEFT LOWER LIMB 04/16/2017 DELIO PAYTON MD, Ot L95.9 VASCULITIS LIMITED TO THE SKIN, UNSPECIF 04/16/2017 DELIO PAYTON MD, Ot L97.222 NON-PRESSURE CHRONIC ULCER OF LEFT CALF 04/16/2017 DELIO PAYTON MD, Ot N18.5 CHRONIC KIDNEY DISEASE, STAGE 5 04/18/2017 DELIO PAYTON MD, Ot I50.9 HEART FAILURE, UNSPECIFIED 04/18/2017 DELIO PAYTON MD, Ot 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 [facility] 04/18/2017 DELIO PAYTON MD, Ot I87.332 CHRONIC VENOUS HTN W ULCER AND INFLAMMAT 04/18/2017 DELIO PAYTON MD, Ot I89.0 LYMPHEDEMA, NOT ELSEWHERE CLASSIFIED 04/18/2017 DELIO PAYTON MD, Ot L02.416 CUTANEOUS ABSCESS OF LEFT LOWER LIMB 04/18/2017 DELIO PAYTON MD, Ot L95.9 VASCULITIS LIMITED TO THE SKIN, UNSPECIF 04/18/2017 DELIO PAYTON MD, Ot L97.222 NON-PRESSURE CHRONIC ULCER OF LEFT CALF 04/18/2017 DELIO PAYTON MD, Ot N18.5 CHRONIC KIDNEY DISEASE, STAGE 5 Procedures Results Test Result Range PT panel in platelet poor plasma by coagulation assay - 05/21/16 11:06 Prothrombin time (PT) in platelet poor plasma by coagulation assay 29.2 s 12.2-14.7 INR in platelet poor plasma or blood by coagulation assay 2.8 0.8-1.4 PT panel in platelet poor plasma by coagulation assay - 06/21/16 11:37 Prothrombin time (PT) in platelet poor plasma by coagulation assay 29.6 s 12.2-14.7 INR in platelet poor plasma or blood by coagulation assay 2.8 0.8-1.4 PT panel in platelet poor plasma by coagulation assay - 07/23/16 13:36 Prothrombin time (PT) in platelet poor plasma by coagulation assay 24.3 s 12.2-14.7 INR in platelet poor plasma or blood by coagulation assay 2.2 0.8-1.4 PT panel in platelet poor plasma by coagulation assay - 08/30/16 15:22 Prothrombin time (PT) in platelet poor plasma by coagulation assay 24.7 s 12.2-14.7 INR in platelet poor plasma or blood by coagulation assay 2.3 0.8-1.4 PT panel in platelet poor plasma by coagulation assay - 09/25/16 15:00 Prothrombin time (PT) in platelet poor plasma by coagulation assay 34.7 s 12.2-14.7 INR in platelet poor plasma or blood by coagulation assay 3.4 0.8-1.4 PT panel in platelet poor plasma by coagulation assay - 10/30/16 15:30 Prothrombin time (PT) in platelet poor plasma by coagulation assay 21.5 s 12.2-14.7 INR in platelet poor plasma or blood by coagulation assay 1.9 0.8-1.4 PT panel in platelet poor plasma by coagulation assay - 12/11/16 11:07 Prothrombin time (PT) in platelet poor plasma by coagulation assay 24.0 s 12.2-14.7 INR in platelet poor plasma or blood by coagulation assay 2.2 0.8-1.4 PT panel in platelet poor plasma by coagulation assay - 01/15/17 13:01 Prothrombin time (PT) in platelet poor plasma by coagulation assay 29.8 s 12.2-14.7 INR in platelet poor plasma or blood by coagulation assay 2.9 0.8-1.4 Complete blood count (CBC) with automated white blood cell (WBC) differential - 01/30/17 13:50 Blood leukocytes automated count (number/volume) 9.6 10*3/ uL 4.3-11.0 Blood erythrocytes automated count (number/volume) 4.25 10*6 /uL 4.35-5.85 Venous blood hemoglobin measurement (mass/volume) 9.8 g/dL 13.3-17.7 Blood hematocrit (volume fraction) 34 % 40-54 Automated erythrocyte mean corpuscular volume 80 [foz_us] 80-99 Automated erythrocyte mean corpuscular hemoglobin (mass per erythrocyte) 23 pg 25-34 Automated erythrocyte mean corpuscular hemoglobin concentration measurement ( mass/volume) 29 g/dL 32-36 Automated erythrocyte distribution width ratio 18.1 % 10.0-14.5 Automated blood platelet count (count/volume) 211 10*3/uL 130-400 Automated blood platelet mean volume measurement 11.0 [foz_ us] 7.4-10.4 Automated blood neutrophils/100 leukocytes 87 % 42-75 Automated blood lymphocytes/100 leukocytes 7 % 12-44 Blood monocytes/100 leukocytes 6 % 0-12 Automated blood eosinophils/100 leukocytes 0 % 0-10 Automated blood basophils/100 leukocytes 0 % 0-10 Blood neutrophils automated count (number/volume) 8.3 10*3 1.8-7.8 Blood lymphocytes automated count (number/volume) 0.7 10*3 1.0-4.0 Blood monocytes automated count (number/volume) 0.6 10*3 0.0-1.0 Automated eosinophil count 0.0 10*3/uL 0.0-0.3 Automated blood basophil count (count/volume) 0.0 10*3/uL 0.0-0.1 PT panel in platelet poor plasma by coagulation assay - 01/30/17 13:50 Prothrombin time (PT) in platelet poor plasma by coagulation assay 41.7 s 12.2-14.7 INR in platelet poor plasma or blood by coagulation assay 4.3 0.8-1.4 Activated partial thromboplastin time (aPTT) in platelet poor plasma bycoagulation assay - 01/30/17 13:50 Activated partial thromboplastin time (aPTT) in platelet poor plasma bycoagulation assay 44 s 24-35 Comprehensive metabolic panel - 01/30/17 13:50 Serum or plasma sodium measurement (moles/volume) 141 mmol/ L 135-145 Serum or plasma potassium measurement (moles/volume) 4.7 mmol/L 3.6-5.0 Serum or plasma chloride measurement (moles/volume) 105 mmol /L 98-107 Carbon dioxide 18 mmol/L 21-32 Serum or plasma anion gap determination (moles/volume) 18 mmol/L 5-14 Serum or plasma urea nitrogen measurement (mass/volume) 99 mg/dL 7-18 Serum or plasma creatinine measurement (mass/volume) 4.55 mg /dL 0.60-1.30 Serum or plasma urea nitrogen/creatinine mass ratio 22 NRG Serum or plasma creatinine measurement with calculation of estimated glomerular filtration rate 12 NRG Serum or plasma glucose measurement (mass/volume) 171 mg/dL 70-105 Serum or plasma calcium measurement (mass/volume) 9.1 mg/dL 8.5-10.1 Serum or plasma total bilirubin measurement (mass/volume) 1.8 mg/dL 0.1-1.0 Serum or plasma alkaline phosphatase measurement (enzymatic activity/volume) 75 U/L 40-136 Serum or plasma aspartate aminotransferase measurement (enzymatic activity/ volume) 207 U/L 5-34 Serum or plasma alanine aminotransferase measurement (enzymatic activity/volume ) 263 U/L 0-55 Serum or plasma protein measurement (mass/volume) 6.4 g/dL 6.4-8.2 Serum or plasma albumin measurement (mass/volume) 4.0 g/dL 3.2-4.5 Magnesium - 01/30/17 13:50 Magnesium 2.5 mg/dL 1.8-2.4 Serum or plasma creatine kinase measurement (enzymatic activity/volume) - 01/30 13:50 Serum or plasma creatine kinase measurement (enzymatic activity/volume) 193 U/L 30-200 Blood manual differential performed detection - 01/30/17 13:50 Blood monocytes/100 leukocytes 3 % NRG Manual blood segmented neutrophils/100 leukocytes 90 % NRG Blood band neutrophils/100 leukocytes 1 % NRG Manual blood lymphocytes/100 leukocytes 6 % NRG Manual eosinophils/100 leukocytes in nose 0 % NRG Manual blood basophils/100 leukocytes 0 % NRG Blood anisocytosis detection by light microscopy SLIGHT NRG Blood ovalocytes detection by light microscopy SLIGHT NRG Blood poikilocytosis detection by light microscopy SLIGHT NRG Blood hypochromia detection by light microscopy SLIGHT NRG Serum or plasma creatine kinase MB measurement (enzymatic activity/volume) - 13:50 Serum or plasma creatine kinase MB measurement (enzymatic activity/volume) 8.9 ng/mL <6.6 Serum or plasma troponin i.cardiac measurement (mass/volume) - 01/30/17 13:50 Serum or plasma troponin i.cardiac measurement (mass/volume) < ng/mL <0.30 Serum or plasma thyrotropin measurement by detection limit <=0.05 miu/l (units/ volume) - 01/30/17 13:50 Serum or plasma thyrotropin measurement by detection limit <=0.05 miu/l (units/ volume) 1.82 u[iU]/mL 0.35-4.94 Serum or plasma lithium measurement (moles/volume) - 01/30/17 13:50 BNP level 2120.6 pg/mL <100.0 Gram stain microscopy - 01/30/17 15:01 GRAM STAIN RESULT RARE GRAM NEGATIVE VEL [facility] Bacteria identification in wound by culture - 01/30/17 15:01 Bacteria identification in wound by culture [id number] NR FREE TEXT EXTERNAL SENSITIVITY REPORTED AT 0909, 17 NRG QUANTITY OF GROWTH Scant Growth NR FREE TEXT ENTRY 2 SENSITIVITY REPORTED 02/05/17 12:45 NR Bacterial susceptibility panel - 01/30/17 15:01 Gentamicin susceptibility test by minimum inhibitory concentration S NRG Erythromycin susceptibility test by minimum inhibitory concentration >= NRG Vancomycin susceptibility test by minimum inhibitory concentration 1 NR Ampicillin susceptibility test by minimum inhibitory concentration <= NRG Linezolid susceptibility test by minimum inhibitory concentration 2 NR Bacterial susceptibility panel - 01/30/17 15:01 Trimethoprim/sulfamethoxazole susceptibility test by minimum inhibitoryconcentration <= NR Bacterial susceptibility panel - 01/30/17 15:01 Gentamicin susceptibility test by minimum inhibitory concentration <= NRG Trimethoprim/sulfamethoxazole susceptibility test by minimum inhibitoryconcentration <= NRG Tobramycin susceptibility test by minimum inhibitory concentration <= NRG Cefazolin susceptibility test by minimum inhibitory concentration >= NRG Ceftriaxone susceptibility test by minimum inhibitory concentration <= NRG Piperacillin/tazobactam susceptibility test by minimum inhibitory concentration <= NRG Ciprofloxacin susceptibility test by minimum inhibitory concentration <= NRG Meropenem susceptibility test by minimum inhibitory concentration <= NRG Nitrofurantoin susceptibility test by minimum inhibitory concentration <= NRG Aztreonam susceptibility test by minimum inhibitory concentration <= NRG Cefepime susceptibility test by minimum inhibitory concentration <= NRG Bacterial susceptibility panel - 01/30/17 15:01 Gentamicin susceptibility test by minimum inhibitory concentration <= NRG Tobramycin susceptibility test by minimum inhibitory concentration <= NRG Piperacillin/tazobactam susceptibility test by minimum inhibitory concentration 8 NRG Ciprofloxacin susceptibility test by minimum inhibitory concentration <= NRG Meropenem susceptibility test by minimum inhibitory concentration 1 NRG Cefepime susceptibility test by minimum inhibitory concentration <= NRG Bacterial susceptibility panel - 01/30/17 15:01 Gentamicin susceptibility test by minimum inhibitory concentration <= NRG Trimethoprim/sulfamethoxazole susceptibility test by minimum inhibitoryconcentration <= NRG Ampicillin susceptibility test by minimum inhibitory concentration R NRG Tobramycin susceptibility test by minimum inhibitory concentration <= NRG Cefazolin susceptibility test by minimum inhibitory concentration <= NRG Ceftriaxone susceptibility test by minimum inhibitory concentration <= NRG Ampicillin/sulbactam susceptibility test by minimum inhibitory concentration 4 NRG Piperacillin/tazobactam susceptibility test by minimum inhibitory concentration <= NRG Ciprofloxacin susceptibility test by minimum inhibitory concentration <= NRG Meropenem susceptibility test by minimum inhibitory concentration <= NRG Nitrofurantoin susceptibility test by minimum inhibitory concentration <= NRG Aztreonam susceptibility test by minimum inhibitory concentration <= NRG Cefepime susceptibility test by minimum inhibitory concentration <= NRG Complete urinalysis with reflex to culture - 01/30/17 15:55 Urine color determination YELLOW NRG Urine clarity determination CLEAR NRG Urine pH measurement by test strip 5 5- 9 Specific gravity of urine by test strip 1.020 1.016-1.022 Urine protein assay by test strip, semi-quantitative 1+ NEGATIVE Urine glucose detection by automated test strip NEGATIVE NEGATIVE Erythrocytes detection in urine sediment by light microscopy NEGATIVE NEGATIVE Urine ketones detection by automated test strip NEGATIVE NEGATIVE Urine nitrite detection by test strip NEGATIVE NEGATIVE Urine total bilirubin detection by test strip NEGATIVE NEGATIVE Urine urobilinogen measurement by automated test strip (mass/volume) NORMAL NORMAL Urine leukocyte esterase detection by dipstick NEGATIVE NEGATIVE Automated urine sediment erythrocyte count by microscopy (number/high power field) NONE NRG Automated urine sediment leukocyte count by microscopy (number/high power field ) RARE NRG Bacteria detection in urine sediment by light microscopy TRACE NRG Squamous epithelial cells detection in urine sediment by light microscopy RARE NRG Crystals detection in urine sediment by light microscopy NONE NRG Casts detection in urine sediment by light microscopy PRESENT NRG Mucus detection in urine sediment by light microscopy NEGATIVE NRG Complete urinalysis with reflex to culture NO NRG Hyaline casts detection in urine sediment by light microscopy 25-50 NRG Bacteria identification in isolate by anaerobe culture - 03/13/17 13:20 Bacteria identification in isolate by anaerobe culture NOANA NRG Gram stain microscopy - 03/13/17 13:20 GRAM STAIN RESULT FEW GRAM POSITIVE COCCI NRG Bacteria identification in wound by culture - 03/13/17 13:20 Bacteria identification in wound by culture [id number] NRG FREE TEXT EXTERNAL SENSITIVITY REPORTED 03/16/17 9:25 NRG QUANTITY OF GROWTH Scant Growth NRG CALL POSITIVES (F1 HELP) CALLED TO [facility] 03/19/17 8 :00 Akshat CARDOZO [facility] Bacterial susceptibility panel - 03/13/17 13:20 Oxacillin susceptibility test by minimum inhibitory concentration 0.5 NRG Gentamicin susceptibility test by minimum inhibitory concentration <= NRG Clindamycin susceptibility test by minimum inhibitory concentration <= NRG Erythromycin susceptibility test by minimum inhibitory concentration >= NRG Trimethoprim/sulfamethoxazole susceptibility test by minimum inhibitoryconcentration <= NRG Vancomycin susceptibility test by minimum inhibitory concentration 1 NRG Levofloxacin susceptibility test by minimum inhibitory concentration 4 NRG Rifampin susceptibility test by minimum inhibitory concentration <= NRG Tetracycline susceptibility test by minimum inhibitory concentration <= NRG Ciprofloxacin susceptibility test by minimum inhibitory concentration R NR Bacterial susceptibility panel - 03/13/17 13:20 Oxacillin susceptibility test by minimum inhibitory concentration >= NRG Gentamicin susceptibility test by minimum inhibitory concentration <= NRG Clindamycin susceptibility test by minimum inhibitory concentration >= NRG Erythromycin susceptibility test by minimum inhibitory concentration >= NRG Trimethoprim/sulfamethoxazole susceptibility test by minimum inhibitoryconcentration <= NRG Vancomycin susceptibility test by minimum inhibitory concentration 1 NRG Levofloxacin susceptibility test by minimum inhibitory concentration >= NRG Rifampin susceptibility test by minimum inhibitory concentration <= NRG Tetracycline susceptibility test by minimum inhibitory concentration <= NRG Ciprofloxacin susceptibility test by minimum inhibitory concentration R NRG Bacterial susceptibility panel - 03/13/17 13:20 Trimethoprim/sulfamethoxazole susceptibility test by minimum inhibitoryconcentration <= NRG Complete blood count (CBC) with automated white blood cell (WBC) differential - 04/03/17 11:50 Blood leukocytes automated count (number/volume) 11.1 10*3/ uL 4.3-11.0 Blood erythrocytes automated count (number/volume) 3.86 10*6 /uL 4.35-5.85 Venous blood hemoglobin measurement (mass/volume) 8.5 g/dL 13.3-17.7 Blood hematocrit (volume fraction) 30 % 40-54 Automated erythrocyte mean corpuscular volume 76 [foz_us] 80-99 Automated erythrocyte mean corpuscular hemoglobin (mass per erythrocyte) 22 pg 25-34 Automated erythrocyte mean corpuscular hemoglobin concentration measurement ( mass/volume) 29 g/dL 32-36 Automated erythrocyte distribution width ratio 19.5 % 10.0-14.5 Automated blood platelet count (count/volume) 174 10*3/uL 130-400 Automated blood platelet mean volume measurement 10.0 [foz_ us] 7.4-10.4 Automated blood neutrophils/100 leukocytes 83 % 42-75 Automated blood lymphocytes/100 leukocytes 9 % 12-44 Blood monocytes/100 leukocytes 8 % 0-12 Automated blood eosinophils/100 leukocytes 1 % 0-10 Automated blood basophils/100 leukocytes 0 % 0-10 Blood neutrophils automated count (number/volume) 9.1 10*3 1.8-7.8 Blood lymphocytes automated count (number/volume) 1.0 10*3 1.0-4.0 Blood monocytes automated count (number/volume) 0.8 10*3 0.0-1.0 Automated eosinophil count 0.1 10*3/uL 0.0-0.3 Automated blood basophil count (count/volume) 0.0 10*3/uL 0.0-0.1 PT panel in platelet poor plasma by coagulation assay - 04/03/17 11:50 Prothrombin time (PT) in platelet poor plasma by coagulation assay 37.0 s 12.2-14.7 INR in platelet poor plasma or blood by coagulation assay 3.7 0.8-1.4 Activated partial thromboplastin time (aPTT) in platelet poor plasma bycoagulation assay - 04/03/17 11:50 Activated partial thromboplastin time (aPTT) in platelet poor plasma bycoagulation assay 42 s 24-35 Comprehensive metabolic panel - 04/03/17 11:50 Serum or plasma sodium measurement (moles/volume) 136 mmol/ L 135-145 Serum or plasma potassium measurement (moles/volume) 4.1 mmol/L 3.6-5.0 Serum or plasma chloride measurement (moles/volume) 97 mmol/ L 98-107 Carbon dioxide 23 mmol/L 21-32 Serum or plasma anion gap determination (moles/volume) 16 mmol/L 5-14 Serum or plasma urea nitrogen measurement (mass/volume) 124 mg/dL 7-18 Serum or plasma creatinine measurement (mass/volume) 3.45 mg /dL 0.60-1.30 Serum or plasma urea nitrogen/creatinine mass ratio 36 0-20 Serum or plasma creatinine measurement with calculation of estimated glomerular filtration rate 17 NRG Serum or plasma glucose measurement (mass/volume) 200 mg/dL 70-105 Serum or plasma calcium measurement (mass/volume) 7.8 mg/dL 8.5-10.1 Serum or plasma total bilirubin measurement (mass/volume) 1.4 mg/dL 0.1-1.0 Serum or plasma alkaline phosphatase measurement (enzymatic activity/volume) 79 U/L 40-136 Serum or plasma aspartate aminotransferase measurement (enzymatic activity/ volume) 23 U/L 5-34 Serum or plasma alanine aminotransferase measurement (enzymatic activity/volume ) 18 U/L 0-55 Serum or plasma protein measurement (mass/volume) 6.4 g/dL 6.4-8.2 Serum or plasma albumin measurement (mass/volume) 3.3 g/dL 3.2-4.5 Magnesium - 04/03/17 11:50 Magnesium 2.2 mg/dL 1.8-2.4 Complete urinalysis with reflex to culture - 04/03/17 12:00 Urine color determination YELLOW NRG Urine clarity determination SLIGHTLY CLOUDY NRG Urine pH measurement by test strip 5 5- 9 Specific gravity of urine by test strip 1.020 1.016-1.022 Urine protein assay by test strip, semi-quantitative 2+ NEGATIVE Urine glucose detection by automated test strip NEGATIVE NEGATIVE Erythrocytes detection in urine sediment by light microscopy NEGATIVE NEGATIVE Urine ketones detection by automated test strip NEGATIVE NEGATIVE Urine nitrite detection by test strip NEGATIVE NEGATIVE Urine total bilirubin detection by test strip NEGATIVE NEGATIVE Urine urobilinogen measurement by automated test strip (mass/volume) 1 mg/dL NORMAL Urine leukocyte esterase detection by dipstick NEGATIVE NEGATIVE Automated urine sediment erythrocyte count by microscopy (number/high power field) NONE NRG Automated urine sediment leukocyte count by microscopy (number/high power field ) NONE NRG Bacteria detection in urine sediment by light microscopy NEGATIVE NRG Squamous epithelial cells detection in urine sediment by light microscopy NONE NRG Crystals detection in urine sediment by light microscopy PRESENT NRG Casts detection in urine sediment by light microscopy PRESENT NRG Mucus detection in urine sediment by light microscopy NEGATIVE NRG Complete urinalysis with reflex to culture NO NRG Amorphous sediment detection in urine sediment by light microscopy FEW LES URATES NRG Hyaline casts detection in urine sediment by light microscopy 0-2 NRG Blood lactic acid measurement (moles/volume) - 04/03/17 12:40 Blood lactic acid measurement (moles/volume) 1.74 mmol/L 0.50-2.00 Bacterial blood culture - 04/03/17 12:40 Bacterial blood culture NG NRG Bacterial blood culture - 04/03/17 12:54 FREE TEXT EXTERNAL SENSITIVITY REPORTED AT 0816, 6-16-17 NRG QUANTITY OF GROWTH Isolated NRG Bacterial blood culture [id number] [facility] Bacterial susceptibility panel - 04/03/17 12:54 Gentamicin susceptibility test by minimum inhibitory concentration <= NRG Tobramycin susceptibility test by minimum inhibitory concentration <= NRG Piperacillin/tazobactam susceptibility test by minimum inhibitory concentration 8 NRG Ciprofloxacin susceptibility test by minimum inhibitory concentration <= NRG Meropenem susceptibility test by minimum inhibitory concentration <= NRG Cefepime susceptibility test by minimum inhibitory concentration 2 NRG Complete blood count (CBC) with automated white blood cell (WBC) differential - 04/27/17 11:15 Blood leukocytes automated count (number/volume) 10.4 10*3/ uL 4.3-11.0 Blood erythrocytes automated count (number/volume) 3.70 10*6 /uL 4.35-5.85 Venous blood hemoglobin measurement (mass/volume) 8.9 g/dL 13.3-17.7 Blood hematocrit (volume fraction) 32 % 40-54 Automated erythrocyte mean corpuscular volume 86 [foz_us] 80-99 Automated erythrocyte mean corpuscular hemoglobin (mass per erythrocyte) 24 pg 25-34 Automated erythrocyte mean corpuscular hemoglobin concentration measurement ( mass/volume) 28 g/dL 32-36 Automated erythrocyte distribution width ratio 21.7 % 10.0-14.5 Automated blood platelet count (count/volume) 326 10*3/uL 130-400 Automated blood platelet mean volume measurement 9.2 [foz_us ] 7.4-10.4 Automated blood neutrophils/100 leukocytes 92 % 42-75 Automated blood lymphocytes/100 leukocytes 5 % 12-44 Blood monocytes/100 leukocytes 3 % 0-12 Automated blood eosinophils/100 leukocytes 0 % 0-10 Automated blood basophils/100 leukocytes 0 % 0-10 Blood neutrophils automated count (number/volume) 9.6 10*3 1.8-7.8 Blood lymphocytes automated count (number/volume) 0.5 10*3 1.0-4.0 Blood monocytes automated count (number/volume) 0.4 10*3 0.0-1.0 Automated eosinophil count 0.0 10*3/uL 0.0-0.3 Automated blood basophil count (count/volume) 0.0 10*3/uL 0.0-0.1 PT panel in platelet poor plasma by coagulation assay - 04/27/17 11:15 Prothrombin time (PT) in platelet poor plasma by coagulation assay 16.4 s 12.2-14.7 INR in platelet poor plasma or blood by coagulation assay 1.4 0.8-1.4 Activated partial thromboplastin time (aPTT) in platelet poor plasma bycoagulation assay - 04/27/17 11:15 Activated partial thromboplastin time (aPTT) in platelet poor plasma bycoagulation assay 23 s 24-35 Comprehensive metabolic panel - 04/27/17 11:15 Serum or plasma sodium measurement (moles/volume) 142 mmol/ L 135-145 Serum or plasma potassium measurement (moles/volume) 4.5 mmol/L 3.6-5.0 Serum or plasma chloride measurement (moles/volume) 107 mmol /L 98-107 Carbon dioxide 21 mmol/L 21-32 Serum or plasma anion gap determination (moles/volume) 14 mmol/L 5-14 Serum or plasma urea nitrogen measurement (mass/volume) 40 mg/dL 7-18 Serum or plasma creatinine measurement (mass/volume) 2.14 mg /dL 0.60-1.30 Serum or plasma urea nitrogen/creatinine mass ratio 19 NRG Serum or plasma creatinine measurement with calculation of estimated glomerular filtration rate 30 NRG Serum or plasma glucose measurement (mass/volume) 147 mg/dL 70-105 Serum or plasma calcium measurement (mass/volume) 7.9 mg/dL 8.5-10.1 Serum or plasma total bilirubin measurement (mass/volume) 1.1 mg/dL 0.1-1.0 Serum or plasma alkaline phosphatase measurement (enzymatic activity/volume) 133 U/L 40-136 Serum or plasma aspartate aminotransferase measurement (enzymatic activity/ volume) 32 U/L 5-34 Serum or plasma alanine aminotransferase measurement (enzymatic activity/volume ) 24 U/L 0-55 Serum or plasma protein measurement (mass/volume) 5.8 g/dL 6.4-8.2 Serum or plasma albumin measurement (mass/volume) 2.6 g/dL 3.2-4.5 Magnesium - 04/27/17 11:15 Magnesium 2.3 mg/dL 1.8-2.4 Serum or plasma amylase measurement (enzymatic activity/volume) - 04/27/17 11: 15 Serum or plasma amylase measurement (enzymatic activity/volume) 26 U/L 25-125 Lipase - 04/27/17 11:15 Lipase 19 U/L 8-78 Blood manual differential performed detection - 04/27/17 11:15 Blood monocytes/100 leukocytes 2 % NRG Manual blood segmented neutrophils/100 leukocytes 68 % NRG Blood band neutrophils/100 leukocytes 25 % NRG Manual blood lymphocytes/100 leukocytes 5 % NRG Blood polychromasia detection by light microscopy SLIGHT NRG Blood anisocytosis detection by light microscopy SLIGHT NRG Blood hypochromia detection by light microscopy SLIGHT NRG Blood dacrocytes detection by light microscopy SLIGHT NRG Digoxin - 04/27/17 11:15 Digoxin 0.77 ng/mL 0.80-2.00 Blood lactic acid measurement (moles/volume) - 04/27/17 11:15 Blood lactic acid measurement (moles/volume) 5.67 mmol/L 0.50-2.00 Complete urinalysis with reflex to culture - 04/27/17 11:20 Urine color determination YELLOW NRG Urine clarity determination VERY CLOUDY NRG Urine pH measurement by test strip 5 5- 9 Specific gravity of urine by test strip 1.010 1.016-1.022 Urine protein assay by test strip, semi-quantitative 3+ NEGATIVE Urine glucose detection by automated test strip NEGATIVE NEGATIVE Erythrocytes detection in urine sediment by light microscopy 5+ NEGATIVE Urine ketones detection by automated test strip NEGATIVE NEGATIVE Urine nitrite detection by test strip NEGATIVE NEGATIVE Urine total bilirubin detection by test strip 1+ NEGATIVE Urine urobilinogen measurement by automated test strip (mass/volume) 1 mg/dL NORMAL Urine leukocyte esterase detection by dipstick 3+ NEGATIVE Automated urine sediment erythrocyte count by microscopy (number/high power field) NONE NRG Automated urine sediment leukocyte count by microscopy (number/high power field ) [HPF] NRG Bacteria detection in urine sediment by light microscopy FEW NRG Squamous epithelial cells detection in urine sediment by light microscopy NONE NRG Crystals detection in urine sediment by light microscopy PRESENT NRG Casts detection in urine sediment by light microscopy NONE NRG Mucus detection in urine sediment by light microscopy NEGATIVE NRG Complete urinalysis with reflex to culture YES NRG Amorphous sediment detection in urine sediment by light microscopy MOD LES URATES NRG Calcium oxalate crystals detection in urine sediment by light microscopy FEW NRG RED CELLS LEUKO REDUCED AS1 - 04/27/17 12:25 RED CELLS LEUKO REDUCED AS1 TRANSFUSED 1352 NRG Blood type T Indirect antibody screen panel - 04/27/17 12:25 ABO+Rh group AP NRG Transfusion band number [id number] NRG Blood group antibody screen NEGATIVE NRG Blood lactic acid measurement (moles/volume) - 04/27/17 16:00 Blood lactic acid measurement (moles/volume) 1.34 mmol/L 0.50-2.00 Arterial blood gas measurement - 04/27/17 17:02 Blood pCO2 33 mm[Hg] 35-45 Blood pO2 86 mm[Hg] 79-93 Arterial blood bicarbonate measurement (moles/volume) 22 mmol/L 23-27 Arterial blood base excess by calculation -1.5 mmol/L -2.5-2.5 Arterial blood oxygen saturation measurement 99 % 94-100 * Inhaled oxygen flow rate 35% NRG Arterial blood pH measurement with patient temperature correction 7.44 7.37-7.43 Arterial blood carbon dioxide, total measurement (moles/volume) 23.3 mmol/L 21.0-31.0 Body site LT RAD NRG Assessment of wrist artery patency prior to arterial puncture ART LINE NRG Setting of ventilation mode YES NRG Measurement of body temperature 96.8 NRG Complete blood count (CBC) with automated white blood cell (WBC) differential - 04/27/17 18:41 Blood leukocytes automated count (number/volume) 7.9 10*3/ uL 4.3-11.0 Blood erythrocytes automated count (number/volume) 3.73 10*6 /uL 4.35-5.85 Venous blood hemoglobin measurement (mass/volume) 9.3 g/dL 13.3-17.7 Blood hematocrit (volume fraction) 32 % 40-54 Automated erythrocyte mean corpuscular volume 86 [foz_us] 80-99 Automated erythrocyte mean corpuscular hemoglobin (mass per erythrocyte) 25 pg 25-34 Automated erythrocyte mean corpuscular hemoglobin concentration measurement ( mass/volume) 29 g/dL 32-36 Automated erythrocyte distribution width ratio 20.8 % 10.0-14.5 Automated blood platelet count (count/volume) 213 10*3/uL 130-400 Automated blood platelet mean volume measurement 9.3 [foz_us ] 7.4-10.4 Automated blood neutrophils/100 leukocytes 87 % 42-75 Automated blood lymphocytes/100 leukocytes 9 % 12-44 Blood monocytes/100 leukocytes 4 % 0-12 Automated blood eosinophils/100 leukocytes 0 % 0-10 Automated blood basophils/100 leukocytes 0 % 0-10 Blood neutrophils automated count (number/volume) 6.9 10*3 1.8-7.8 Blood lymphocytes automated count (number/volume) 0.7 10*3 1.0-4.0 Blood monocytes automated count (number/volume) 0.3 10*3 0.0-1.0 Automated eosinophil count 0.0 10*3/uL 0.0-0.3 Automated blood basophil count (count/volume) 0.0 10*3/uL 0.0-0.1 Comprehensive metabolic panel - 04/27/17 18:41 Serum or plasma sodium measurement (moles/volume) 140 mmol/ L 135-145 Serum or plasma potassium measurement (moles/volume) 3.9 mmol/L 3.6-5.0 Serum or plasma chloride measurement (moles/volume) 111 mmol /L 98-107 Carbon dioxide 20 mmol/L 21-32 Serum or plasma anion gap determination (moles/volume) 9 mmol/L 5-14 Serum or plasma urea nitrogen measurement (mass/volume) 38 mg/dL 7-18 Serum or plasma creatinine measurement (mass/volume) 1.82 mg /dL 0.60-1.30 Serum or plasma urea nitrogen/creatinine mass ratio 21 NRG Serum or plasma creatinine measurement with calculation of estimated glomerular filtration rate 36 NRG Serum or plasma glucose measurement (mass/volume) 128 mg/dL 70-105 Serum or plasma calcium measurement (mass/volume) 6.7 mg/dL 8.5-10.1 Serum or plasma total bilirubin measurement (mass/volume) 2.0 mg/dL 0.1-1.0 Serum or plasma alkaline phosphatase measurement (enzymatic activity/volume) 96 U/L 40-136 Serum or plasma aspartate aminotransferase measurement (enzymatic activity/ volume) 29 U/L 5-34 Serum or plasma alanine aminotransferase measurement (enzymatic activity/volume ) 18 U/L 0-55 Serum or plasma protein measurement (mass/volume) 4.3 g/dL 6.4-8.2 Serum or plasma albumin measurement (mass/volume) 2.0 g/dL 3.2-4.5 Encounters ACCT No. Visit Date/Time Discharge Status Pt. Type Provider Facility Loc./Unit Complaint [id number] 03/27/2017 08:19:00 2016 10:36:00 DIS Outpatient DELIO PAYTON MD [facility] WOUNDCARE [id number] 01/15/2017 12:51:00 2016 00:01:00 DIS Outpatient SARA VINSON MD [facility] LAB WARFARIN THERAPY MONTHLY TEST [id number] 04/03/2017 11:00:00 2016 13:28:00 DIS Emergency JM GALVAN APRN [facility] ER EXCESSIVE FLUID [id number] 01/30/2017 13:31:00 2016 16:41:00 DIS Emergency SHANEKA ANDRADE DO [facility] ER LEGS/ANKLES SWELLING [id number] 12/11/2016 11:04:00 2016 00:01:00 DIS Outpatient SARA VINSON MD [facility] LAB WARFARIN THERAPY MONTHLY TEST [id number] 08/30/2016 15:19:00 2015 00:01:00 DIS Outpatient ALISSON BAUGH, SARA R [facility] LAB WARFARIN THERAPY MONTHLY TEST [id number] 05/21/2016 10:59:00 2015 00:01:00 DIS Outpatient ALISSON BAUGH, SARA R [facility] LAB WARFARIN THERAPY MONTHLY TEST [id number] 01/23/2016 14:23:00 2015 00:01:00 DIS Outpatient SARA VINSON MD R [facility] LAB WARFARIN THERAPY MONTHLY TEST [id number] 12/11/2015 09:00:00 2015 11:07:00 DIS Emergency BEN BAUGH, RAMSEY Patterson [facility] ER NOSE BLEED [id number] 10/27/2015 18:27:00 2015 10:50:00 DIS Inpatient SARA VINSON MD R [facility] 4TH ANEMIA,CHF [id number] 09/22/2015 14:00:00 2014 00:01:00 DIS Outpatient SARA VINSON MD R [facility] LAB WARFARIN THERAPY MONTHLY TEST [id number] 08/03/2015 12:46:00 2014 23:59:59 CLS Outpatient SALVADOR CANALES APRN [facility] RAD PLEURAL EFFUSION [id number] 06/24/2015 10:08:00 2014 00:01:00 DIS Outpatient SARA VINSON MD R [facility] LAB WARFARIN THERAPY MONTHLY TEST [id number] 06/24/2015 09:53:00 2014 23:59:59 CLS Outpatient CAPRI SILVEIRA DO [facility] RAD HYPOXEMIA DYSPENA CHAD [id number] 06/16/2015 21:05:00 2014 06:45:00 DIS Outpatient SALVADOR CANALES APRN [facility] SLEEP CHAD,SNORING, [id number] 04/14/2015 13:41:00 2014 00:01:00 DIS Outpatient SARA VINSON MD R [facility] LAB WARFARIN THERAPY MONTHLY TEST [id number] 05/09/2015 12:47:00 2014 23:59:59 CLS Outpatient SALVADOR CANALES APRN [facility] RT HYPOXEMIA,DYSPNEA [id number] 03/29/2015 14:20:00 2014 17:50:00 DIS Inpatient ALISSON BAUGH, SARA Saleh [facility] CSD CHF SUSPECTED RLL/RML INFILTRATE CHRONIC A-FIB [id number] 01/26/2015 14:28:00 2014 00:01:00 DIS Outpatient SARA VINSON MD [facility] LAB WARFARIN THERAPY MONTHLY TEST [id number] 11/25/2014 11:40:00 2014 23:59:59 CLS Outpatient JUAN GAMBOA MD [facility] CARD CHRONIC AFIB CAD PACEMAKER [id number] 2014 00:34:00 2014 23:59:59 CLS Preadmit OTHER, UNLISTED [facility] LAB FCI ANTICOAGULANT USE,A-FIB [id number] 10/19/2014 09:08:00 2014 00:01:00 DIS Outpatient OTHER, UNLISTED [facility] LAB FCI ANTICOAGULANT USE,A-FIB [id number] 11/15/2014 09:51:00 2014 23:59:59 CLS Outpatient JUAN GAMBOA MD [facility] CARD CHRONIC AFIB CAD PACEMAKER [id number] 06/18/2014 09:39:00 2013 00:01:00 DIS Outpatient OTHER, UNLISTED [facility] LAB FCI ANTICOAGULANT USE,A-FIB [id number] 02/17/2014 09:58:00 2013 00:01:00 DIS Outpatient OTHER, UNLISTED [facility] LAB FCI ANTICOAGULANT USE,A-FIB [id number] 11/13/2013 11:54:00 2013 00:01:00 DIS Outpatient OTHER, UNLISTED [facility] LAB FCI ANTICOAGULANT USE,A-FIB [id number] 06/15/2013 08:06:00 2012 00:01:00 DIS Outpatient GERDA LEIVA M [facility] LAB 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 USE,A-FIB [id number] 04/27/2017 14:58:00 ACT Inpatient WILBER ESPINOZA DO [facility] ICU EXPLORATORY LAPAROSCOPY [id number] 04/16/2017 00:13:00 PEN Preadmit ALISSON BAUGH, SARA R [facility] LAB WARFARIN THERAPY MONTHLY TEST [id number] 01/15/2017 11:31:00 ACT Outpatient BAINIESHA, ANSLEMO L AUTOMOTIVE EXHAUST EMISSIONS TECHNICIAN [facility] CARD CARDIOMYOPATHY [id number] 01/08/2017 11:31:00 ACT Outpatient BAIMA, ANSELMO L AUTOMOTIVE EXHAUST EMISSIONS TECHNICIAN [facility] CARD CARDIOMYOPATHY [id number] 12/25/2016 11:36:00 ACT Outpatient BAIMA, ANSELMO L AUTOMOTIVE EXHAUST EMISSIONS TECHNICIAN [facility] CARD CAD,CHRONIC ATRIAL FIBRILLATION,CHF,HYPERTENSION [id number] 12/18/2016 12:35:00 ACT Outpatient BAIMA, ANSELMO L AUTOMOTIVE EXHAUST EMISSIONS TECHNICIAN [facility] LAB CAD,HTN,CHRONIC A FIB,CHAD [id number] 12/11/2016 10:57:00 ACT Outpatient BAIMA, ANSELMO L AUTOMOTIVE EXHAUST EMISSIONS TECHNICIAN [facility] LAB CAF,CHF,DYSPNEA,HYPERTENSION,CAD [id number] 11/01/2016 15:40:00 ACT Outpatient BAIMA, ANSELMO L AUTOMOTIVE EXHAUST EMISSIONS TECHNICIAN [facility] LAB CHF,CAD,DYSPNEA [id number] 03/29/2016 13:31:00 ACT Outpatient YUSUF ABDI MD, FACC, FACP CCDS [facility] LAB CAD,HERD,HYPERTENSION,CHF,DYSPNEA [id number] 01/23/2016 14:24:00 ACT Outpatient BAINIESHA, ANSELMO L AUTOMOTIVE EXHAUST EMISSIONS TECHNICIAN [facility] LAB CHRONIC DIASTOLIC CHF,HYPERTENSION [id number] 12/26/2015 11:30:00 ACT Outpatient YUSUF ABDI MD, FACC, FACP CCDS [facility] LAB CAD,CHRONIC ANTICOAGULATION,HPERTENSION [id number] 11/25/2015 14:59:00 Document Registration [id number] 11/23/2015 10:05:00 Document Registration [id number] 2015 16:05:00 ACT Outpatient ALISSON BAUGH, SARA Saleh [facility] DM, CHF, A-FIB [id number] 03/19/2013 09:20:00 Document Registration [id number] 12/02/2012 09:24:00 Document Registration [id number] 07/14/2012 13:42:00 Document Registration
--- OUTSIDE RECORDS SUMMARY | 2017-04-30 09:27 | XMS REPORT | Continuity of Care Document ---
Author Author [facility] Organization [facility] Address Unknown Phone Unavailable Care Team Providers Care [facility] Splitter Name Role Phone PCP Unavailable Source Comments Some departments are not documenting in the electronic medical record. If you do not see the information that you expected, contact Release of Information in the Health Information Management department at [phone] for further assistance in locating additional records.[facility] Active Allergies and Adverse Reactions Allergen [...]
--- OUTSIDE RECORDS SUMMARY | 2017-04-30 09:31 | XMS REPORT | Continuity of Care Document ---
Author Author [facility] Organization [facility] Address Unknown Phone Unavailable Allergies Active Description Code Type Severity Reaction Onset Reported/Identified Relationship to Patient Clinical Status Yes KEELEY Inhibitors [id number] Drug Allergy Unknown N/A 07/14/2012 Yes KEELEY Inhibitors [id number] Drug Allergy Moderate N/A 03/30/2015 Yes atenolol [id number] Drug Allergy Moderate swelling throat 03/30/2015 Yes metoprolol [id number] Drug Allergy Unknown N/A 03/30/2015 Yes STATIN DRUGS STATIN DRUGS Unknown N/A 10/27/2015 Yes KEELEY Inhibitors [id number] Drug Allergy Severe wheezing and sw 11/01/2015 Yes atenolol [id number] Drug Allergy Severe swelling throat 11/01/2015 Yes metoprolol [id number] Drug Allergy Severe N/A 11/01/2015 Yes metoprolol [id number] Drug Allergy Severe throat swelling 11/01/2015 Yes Lwprqke-Ltu-Leg Reductase Inhibitor [id number] Drug Allergy Unknown N/A 11/01/2015 Medications Problems [...] COOPER BAUGH, JUAN G Ot V45.01 11/25/2014 ALISSNO BAUGH, SARA R Ot V58.61 11/25/2014 ALISSON [...] 02/24/2015 ALISSON BAUGH, SARA R Ot V58.83 03/19/2015 COOEPR BAUGH, JUAN Churchill Ot 414.00 03/19/2015 COOPER [...] OTHER ISOLATED OR SPECIFIC PHOBIAS 04/04/2015 ALISSON BAGUH, SARA R Ot 327.23 OBSTRUCTIVE SLEEP APNEA (ADULT) (PEDIATR 04/04/2015 ALISSON BAUGH, SARA R Ot 365.9 GLAUCOMA NOS 04/04/2015 ALISSON BAUGH, SARA R Ot 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 [...] Ot V58.61 ANTICOAGULANTS,LT,CURRENT USE 05/24/2015 ALISSON BAUGH, SARA R Ot V58.83 ENCOUNTER [...] CANALES APRN Ot G47.33 08/25/2015 SALVADOR CANALES WARP WORKER Ot J90 08/25/2015 SALVADOR CANALES WARP WORKER Ot R06.00 08/25/2015 SALVADOR CANALES WARP WORKER Ot R09.02 09/12/2015 SARA VINSON MD R Ot Z51.81 09/12/2015 SARA VINSON MD R Ot Z79.01 09/14/2015 SALVADOR CANALES APRN Ot G47.33 09/14/2015 SALVADOR CANALES APRN Ot J90 09/14/2015 SALVADOR CANALES APRN Ot R06.00 09/14/2015 SALVADOR CANALES APRN Ot R09.02 10/19/2015 SARA VINSON MD R Ot Z51.81 ENCOUNTER FOR THERAPEUTIC DRUG LEVEL MON 10/19/2015 SARA VINSON MD R Ot Z79.01 HALFWAY (CURRENT) USE OF ANTICOAGULANT 10/27/2015 OTHER, UNLISTED [...] SARA R Ot Z95.5 11/02/2015 ALISSON BAUGH, SAAR R Ot D64.9 ANEMIA, UNSPECIFIED 11/02/2015 ALISSON BAUGH, SARA R Ot G47.30 SLEEP APNEA, UNSPECIFIED 11/02/2015 ALISSON BAUGH, SARA R Ot H40.9 UNSPECIFIED GLAUCOMA 11/02/2015 ALISSON BAUGH, SARA R Ot I12.9 HYPERTENSIVE CHRONIC KIDNEY DISEASE W ST 11/02/2015 ALISSON BAUGH, SARA R Ot I25.10 ATHSCL HEART DISEASE OF [place] CORONARY 11/02/2015 ALISSON BAUGH, SARA R Ot [...] EPISTAXIS 12/11/2015 RAMSEY CONTRERAS MD Ot Z79.01 HALFWAY (CURRENT) USE OF ANTICOAGULANT 12/14/2015 SARA VINSON [...] FACP CCDS Ot I25.10 01/17/2016 JIN BAUGH [facility], ALI FACP CCDS Ot I48.2 01/17/2016 JIN BAUGH [facility], ALI FACP CCDS Ot I50.32 01/17/2016 JIN BAUGH [facility], ALI FACP CCDS Ot Z79.01 01/17/2016 JIN BAUGH [facility], ALI FACP CCDS Ot Z95.1 01/24/2016 ANSELMO HAM BARYTES GRINDER Ot I10 01/24/2016 ANSELMO HAM BARYTES GRINDER Ot I50.32 01/25/2016 SARA VINSON MD R Ot Z51.81 ENCOUNTER FOR THERAPEUTIC DRUG LEVEL MON 01/25/2016 SARA VINSON MD R Ot Z79.01 HALFWAY (CURRENT) USE OF ANTICOAGULANT 01/26/2016 SARA VINSON MD R Ot Z51.81 01/26/2016 SARA VINSON MD R Ot Z79.01 02/14/2016 ANSELMO HAM BARYTES GRINDER Ot I10 ESSENTIAL (PRIMARY) HYPERTENSION 02/14/2016 ANSELMO HAM BARYTES GRINDER Ot I50.32 CHRONIC DIASTOLIC (CONGESTIVE) HEART WINTER 03/06/2016 SARA VINSON MD R Ot Z51.81 ENCOUNTER FOR THERAPEUTIC DRUG LEVEL MON 03/06/2016 SARA VINSON MD R Ot Z79.01 HALFWAY (CURRENT) USE OF ANTICOAGULANT 03/07/2016 SARA VINSON MD R Ot Z51.81 ENCOUNTER FOR THERAPEUTIC DRUG LEVEL MON 03/07/2016 SARA VINSON MD R Ot Z79.01 HALFWAY (CURRENT) USE OF ANTICOAGULANT 03/09/2016 SARA VINSON MD R Ot Z51.81 ENCOUNTER FOR THERAPEUTIC DRUG LEVEL MON 03/09/2016 SARA VINSON MD R Ot Z79.01 INSOLE TACKER (CURRENT) USE OF ANTICOAGULANT 04/03/2016 SARA VINSON MD R Ot Z51.81 ENCOUNTER FOR THERAPEUTIC DRUG LEVEL MON 04/03/2016 SARA VINSON MD R Ot Z79.01 HALFWAY (CURRENT) USE OF ANTICOAGULANT 04/04/2016 JIN BAUGH FACC, ALI FACP CCDS Ot I10 ESSENTIAL (PRIMARY) HYPERTENSION 04/04/2016 JIN BAUGH FACC, ALI FACP CCDS Ot I25.10 ATHSCL HEART DISEASE OF [place] CORONARY 04/04/2016 JIN BAUGH FACC, ALI FACP CCDS Ot I50.32 CHRONIC DIASTOLIC (CONGESTIVE) HEART WINTER 04/04/2016 JIN BAUGH FACC, ALI FACP CCDS Ot K21.9 GASTRO-ESOPHAGEAL REFLUX DISEASE WITHOUT 04/04/2016 JIN BAUGH FACC, ALI FACP CCDS Ot R06.02 SHORTNESS OF BREATH 04/04/2016 JIN BAUGH FACC, ALI FACP CCDS Ot Z79.01 HALFWAY (CURRENT) USE OF ANTICOAGULANT 04/04/2016 JIN BAUGH FACC, ALI FACP CCDS Ot Z95.1 PRESENCE OF AORTOCORONARY BYPASS GRAFT 04/25/2016 JIN BAUGH FACC, ALI FACP CCDS Ot I10 ESSENTIAL (PRIMARY) HYPERTENSION 04/25/2016 JIN BAUGH FACC, ALI FACP CCDS Ot I25.10 ATHSCL HEART DISEASE OF [place] CORONARY 04/25/2016 JIN BAUGH FACC, ALI FACP CCDS Ot I50.32 CHRONIC DIASTOLIC (CONGESTIVE) HEART WINTER 04/25/2016 JIN COTTOC, ALI FACP CCDS Ot K21.9 GASTRO-ESOPHAGEAL REFLUX DISEASE WITHOUT 04/25/2016 JIN COTTOC, ALI FACP CCDS Ot R06.02 SHORTNESS OF BREATH 04/25/2016 JIN BAUGH FACC, ALI FACP CCDS Ot Z79.01 INSOLE TACKER (CURRENT) USE OF ANTICOAGULANT 04/25/2016 JIN BAUGH FACC, ALI FACP CCDS Ot Z95.1 PRESENCE OF AORTOCORONARY BYPASS GRAFT 05/25/2016 SARA VINSON MD R Ot Z51.81 ENCOUNTER FOR THERAPEUTIC DRUG LEVEL MON 05/25/2016 SARA VINSON MD R Ot Z79.01 INSOLE TACKER (CURRENT) USE OF ANTICOAGULANT 06/04/2016 SARA VINSON MD R Ot Z51.81 ENCOUNTER FOR THERAPEUTIC DRUG LEVEL MON 06/04/2016 SARA VINSON MD R Ot Z79.01 INSOLE TACKER (CURRENT) USE OF ANTICOAGULANT 06/05/2016 SARA VINSON MD R Ot Z51.81 ENCOUNTER FOR THERAPEUTIC DRUG LEVEL MON 06/05/2016 SARA VINSON MD R Ot Z79.01 INSOLE TACKER (CURRENT) USE OF ANTICOAGULANT 06/22/2016 SARA VINSON MD R Ot Z51.81 ENCOUNTER FOR THERAPEUTIC DRUG LEVEL MON 06/22/2016 SARA VINSON MD R Ot Z79.01 INSOLE TACKER (CURRENT) USE OF ANTICOAGULANT 06/27/2016 SARA VINSON MD R Ot Z51.81 ENCOUNTER FOR THERAPEUTIC DRUG LEVEL MON 06/27/2016 SARA VINSON MD R Ot Z79.01 HALFWAY (CURRENT) USE OF ANTICOAGULANT 07/30/2016 SARA VINSON MD R Ot Z51.81 ENCOUNTER FOR THERAPEUTIC DRUG LEVEL MON 07/30/2016 SARA VINSON MD R Ot Z79.01 HALFWAY (CURRENT) USE OF ANTICOAGULANT 08/16/2016 SARA VINSON MD R Ot Z51.81 ENCOUNTER FOR THERAPEUTIC DRUG LEVEL MON 08/16/2016 SARA VINSON MD R Ot Z79.01 HALFWAY (CURRENT) USE OF ANTICOAGULANT 09/19/2016 SARA VINSON MD R Ot Z51.81 ENCOUNTER FOR THERAPEUTIC DRUG LEVEL MON 09/19/2016 SARA VINSON MD R Ot Z79.01 HALFWAY (CURRENT) USE OF ANTICOAGULANT 09/25/2016 JUAN GAMBOA [...] Ot 427.31 ATRIAL FIBRILLATION 09/25/2016 SALVADOR CANALES WARP WORKER Ot 327.23 OBSTRUCTIVE SLEEP APNEA (ADULT) ( PEDIATR 09/25/2016 SALVADOR CANALES WARP WORKER Ot 427.31 ATRIAL FIBRILLATION 09/25/2016 SALVADOR CANALES WARP WORKER Ot 799.02 HYPOXEMIA 09/25/2016 RAOUL WORKMAN CAPRI M Ot 327.23 OBSTRUCTIVE SLEEP APNEA (ADULT) (PEDIATR 09/25/2016 RAOUL WORKMAN CAPRI Cole Ot 799.02 HYPOXEMIA 09/25/2016 SALVADOR CANALES APRN Ot G47.33 OBSTRUCTIVE SLEEP APNEA (ADULT) ( PEDIATR 09/25/2016 SALVADOR CANALES WARP WORKER Ot J90 PLEURAL EFFUSION, NOT ELSEWHERE CLASSIFI 09/25/2016 SALVADOR CANALES APRN Ot R06.00 DYSPNEA, UNSPECIFIED 09/25/2016 SALVADOR CANALES APRN Ot R09.02 HYPOXEMIA 09/25/2016 Ot R06.02 SHORTNESS OF BREATH 09/25/2016 Ot Z95.2 PRESENCE OF PROSTHETIC HEART VALVE 09/25/2016 Ot E05.90 THYROTOXICOSIS, UNSP WITHOUT THYROTOXIC 09/25/2016 Ot I25.10 ATHSCL HEART DISEASE OF [place] CORONARY 09/25/2016 Ot I48.91 UNSPECIFIED ATRIAL FIBRILLATION 09/25/2016 Ot I50.9 HEART FAILURE, UNSPECIFIED 09/25/2016 SARA VINSON MD Ot E11.9 TYPE 2 DIABETES [...] CCDS Ot I25.10 ATHSCL HEART DISEASE OF [place] CORONARY 09/25/2016 JIN BAUGH FACC, ALI FACP CCDS Ot I48.2 CHRONIC ATRIAL FIBRILLATION 09/25/2016 JIN BAUGH FACC, YUSUF FACP CCDS Ot I50.32 CHRONIC DIASTOLIC (CONGESTIVE) HEART WINTER 09/25/2016 JIN BAUGH FACC, ALI FACP CCDS Ot Z79.01 INSOLE TACKER (CURRENT) USE OF ANTICOAGULANT 09/25/2016 JIN BAUGH FAC, ALI FACP CCDS Ot Z95.1 PRESENCE OF AORTOCORONARY BYPASS GRAFT 09/25/2016 ANSELMO HAM L BARYTES GRINDER Ot I10 ESSENTIAL (PRIMARY) HYPERTENSION 09/25/2016 ANSELMO HAM L BARYTES GRINDER Ot I50.32 CHRONIC DIASTOLIC (CONGESTIVE) HEART WINTER 09/25/2016 JIN BAUGH FAC, ALI FACP CCDS Ot I10 ESSENTIAL (PRIMARY) HYPERTENSION 09/25/2016 JIN BAUGH FACC, ALI FACP CCDS Ot I25.10 ATHSCL HEART DISEASE OF [place] CORONARY 09/25/2016 JIN BAUGH FAC, ALI FACP CCDS Ot I50.32 CHRONIC DIASTOLIC (CONGESTIVE) HEART WINTER 09/25/2016 JIN BAUGH FACVanda, ALI FACP CCDS Ot K21.9 GASTRO-ESOPHAGEAL REFLUX DISEASE WITHOUT 09/25/2016 JIN BAUGH FAC, ALI FACP CCDS Ot R06.02 SHORTNESS OF BREATH 09/25/2016 JIN COTTO, ALI FACP CCDS Ot Z79.01 INSOLE TACKER (CURRENT) USE OF ANTICOAGULANT 09/25/2016 JIN COTTO, ALI FACP CCDS Ot Z95.1 PRESENCE OF AORTOCORONARY BYPASS GRAFT 09/25/2016 SARA VINSON MD R Ot Z51.81 ENCOUNTER FOR THERAPEUTIC DRUG LEVEL MON 09/25/2016 ALISSON BAUGH SARA R Ot Z79.01 HALFWAY (CURRENT) USE OF ANTICOAGULANT 09/25/2016 ALISSON BAUGH SARA R Ot Z51.81 ENCOUNTER FOR THERAPEUTIC DRUG LEVEL MON 09/25/2016 ALISSON BAUGH SARA R Ot Z79.01 INSOLE TACKER (CURRENT) USE OF ANTICOAGULANT 10/30/2016 SARA VINSON MD R Ot Z51.81 ENCOUNTER FOR THERAPEUTIC DRUG LEVEL MON 10/30/2016 SARA VINSON MD R Ot Z79.01 INSOLE TACKER (CURRENT) USE OF ANTICOAGULANT 11/02/2016 ANSELMO HAM BARYTES GRINDER Ot I10 ESSENTIAL (PRIMARY) HYPERTENSION 11/02/2016 ANSELMO HAM L BARYTES GRINDER Ot I25.10 ATHSCL HEART DISEASE OF [place] CORONARY 11/02/2016 BAIMA, ANSELMO L BARYTES GRINDER Ot I48.2 CHRONIC ATRIAL FIBRILLATION 11/02/2016 BAIMA, ANSELMO L BARYTES GRINDER Ot I50.32 CHRONIC DIASTOLIC (CONGESTIVE) HEART WINTER 11/02/2016 BAIMA, ANSELMO L BARYTES GRINDER Ot R06.02 SHORTNESS OF BREATH 11/02/2016 BAIMA, ANSELMO L BARYTES GRINDER Ot Z79.01 INSOLE TACKER (CURRENT) USE OF ANTICOAGULANT 11/16/2016 SARA VINSON MD Ot Z51.81 ENCOUNTER FOR THERAPEUTIC DRUG LEVEL MON 11/16/2016 SARA VINSON MD R Ot Z79.01 INSOLE TACKER (CURRENT) USE OF ANTICOAGULANT 2016 BAIMA, ANSELMO L BARYTES GRINDER Ot I10 ESSENTIAL (PRIMARY) HYPERTENSION 2016 BAIMA, ANSELMO L BARYTES GRINDER Ot I25.10 ATHSCL HEART DISEASE OF [place] CORONARY 2016 BAIMA, ANSELMO L BARYTES GRINDER Ot I48.2 CHRONIC ATRIAL FIBRILLATION 2016 BAIMA, ANSELMO L BARYTES GRINDER Ot I50.32 CHRONIC DIASTOLIC (CONGESTIVE) HEART WINTER 2016 ALBERTMA ANSELMO L BARYTES GRINDER Ot R06.02 SHORTNESS OF BREATH 2016 BAIMA ANSELMO L BARYTES GRINDER Ot Z79.01 HALFWAY (CURRENT) USE OF ANTICOAGULANT 12/12/2016 BAIMA, ANSELMO L BARYTES GRINDER Ot I10 ESSENTIAL (PRIMARY) HYPERTENSION 12/12/2016 BAIMA, ANSELMO L BARYTES GRINDER Ot I25.10 ATHSCL HEART DISEASE OF [place] CORONARY 12/12/2016 BAIMA, ANSELMO L BARYTES GRINDER Ot I48.2 CHRONIC ATRIAL FIBRILLATION 12/12/2016 ALBERTMA, ANSELMO L BARYTES GRINDER Ot I50.32 CHRONIC DIASTOLIC (CONGESTIVE) HEART WINTER 12/12/2016 BAIMA, ANSELMO L BARYTES GRINDER Ot R06.02 SHORTNESS OF BREATH 12/12/2016 BAIMA, ANSELMO L BARYTES GRINDER Ot Z79.01 HALFWAY (CURRENT) USE OF ANTICOAGULANT 12/12/2016 SARA VINSON MD R Ot Z51.81 ENCOUNTER FOR THERAPEUTIC DRUG LEVEL MON 12/12/2016 SARA VINSON MD Ot Z79.01 HALFWAY (CURRENT) USE OF ANTICOAGULANT 12/19/2016 ANSELMO HAM L BARYTES GRINDER Ot G47.33 OBSTRUCTIVE SLEEP APNEA (ADULT) ( PEDIATR 12/19/2016 BAIMA, ANSELMO L BARYTES GRINDER Ot I11.0 HYPERTENSIVE HEART DISEASE WITH HEART FA 12/19/2016 ANSELMO HAM L BARYTES GRINDER Ot I25.10 ATHSCL HEART DISEASE OF [place] CORONARY 12/19/2016 ANSELMO HAM BARYTES GRINDER Ot I48.2 CHRONIC ATRIAL FIBRILLATION 12/19/2016 ANSELMO HAM L BARYTES GRINDER Ot I50.32 CHRONIC DIASTOLIC (CONGESTIVE) HEART WINTER 12/19/2016 ANSELMO HAM L BARYTES GRINDER Ot Z79.01 INSOLE TACKER (CURRENT) USE OF ANTICOAGULANT 12/19/2016 ANSELMO HAM L BARYTES GRINDER Ot 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 PACEMAKER 12/19/2016 ANSELMO HAM L BARYTES GRINDER Ot Z95.1 PRESENCE OF AORTOCORONARY BYPASS GRAFT 12/24/2016 ALISSON BAUGH, SARA R Ot Z51.81 ENCOUNTER FOR THERAPEUTIC DRUG LEVEL MON 12/24/2016 SARA VINSON MD R Ot Z79.01 INSOLE TACKER (CURRENT) USE OF ANTICOAGULANT 12/25/2016 ANSELMO HAM BARYTES GRINDER Ot I25.10 ATHSCL HEART DISEASE OF [place] CORONARY 12/25/2016 SARA VINSON MD R Ot Z51.81 ENCOUNTER FOR THERAPEUTIC DRUG LEVEL MON 12/25/2016 SARA VINSON MD R Ot Z79.01 HALFWAY (CURRENT) USE OF ANTICOAGULANT 12/27/2016 ANSELMO HAM BARYTES GRINDER Ot G47.33 OBSTRUCTIVE SLEEP APNEA (ADULT) ( PEDIATR 12/27/2016 ANSELMO HAM BARYTES GRINDER Ot 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 12/27/2016 ANSELMO HAM L BARYTES GRINDER Ot I25.10 ATHSCL HEART DISEASE OF [place] CORONARY 12/27/2016 ANSELMO HAM L BARYTES GRINDER Ot I48.2 CHRONIC ATRIAL FIBRILLATION 12/27/2016 ANSELMO HAM L BARYTES GRINDER Ot I50.32 CHRONIC DIASTOLIC (CONGESTIVE) HEART WINTER 12/27/2016 ANSELMO HAM L BARYTES GRINDER Ot 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, STAGE 4 (SEVERE ) 12/27/2016 ANSELMO HAM L BARYTES GRINDER Ot Z79.01 INSOLE TACKER (CURRENT) USE OF ANTICOAGULANT 01/01/2017 ANSELMO HAM L BARYTES GRINDER Ot I10 ESSENTIAL (PRIMARY) HYPERTENSION 01/01/2017 BAIMA, ANSELMO L BARYTES GRINDER Ot I25.10 ATHSCL HEART DISEASE OF [place] CORONARY 01/01/2017 BAINIESHA ANSELMO L BARYTES GRINDER Ot I48.2 CHRONIC ATRIAL FIBRILLATION 01/01/2017 BAIMA, ANSELMO L BARYTES GRINDER Ot I50.32 CHRONIC DIASTOLIC (CONGESTIVE) HEART WINTER 01/01/2017 KVNG HAMHER L BARYTES GRINDER Ot R06.02 SHORTNESS OF BREATH 01/01/2017 ALBERTNIESHA ANSELMO L BARYTES GRINDER Ot Z79.01 HALFWAY (CURRENT) USE OF ANTICOAGULANT 01/08/2017 BAIMA ANSELMO L BARYTES GRINDER Ot I25.5 ISCHEMIC CARDIOMYOPATHY 01/08/2017 BAIMA, ANSELMO L BARYTES GRINDER Ot G47.33 OBSTRUCTIVE SLEEP APNEA (ADULT) ( PEDIATR 01/08/2017 BAIMA, ANSELMO L BARYTES GRINDER Ot I11.0 HYPERTENSIVE HEART DISEASE WITH HEART FA 01/08/2017 ALBERTNIESHA ANSELMO L BARYTES GRINDER Ot I25.10 ATHSCL HEART DISEASE OF [place] CORONARY 01/08/2017 ALBERTKVNG SCHERERHER L BARYTES GRINDER Ot I48.2 CHRONIC ATRIAL FIBRILLATION 01/08/2017 ALBERTMA ANSELMO L BARYTES GRINDER Ot I50.32 CHRONIC DIASTOLIC (CONGESTIVE) HEART WINTER 01/08/2017 BAINIESHA ANSELMO L BARYTES GRINDER Ot Z79.01 HALFWAY (CURRENT) USE OF ANTICOAGULANT 01/08/2017 JITENDRA ANSELMO L BARYTES GRINDER Ot 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 PACEMAKER 01/08/2017 JITENDRA ANSELMO L BARYTES GRINDER Ot Z95.1 PRESENCE OF AORTOCORONARY BYPASS GRAFT 01/15/2017 SARA VINSON MD R Ot Z51.81 ENCOUNTER FOR THERAPEUTIC DRUG LEVEL MON 01/15/2017 SARA VINSON MD R Ot Z79.01 INSOLE TACKER (CURRENT) USE OF ANTICOAGULANT 01/15/2017 SARA VINSON MD R Ot Z51.81 ENCOUNTER FOR THERAPEUTIC DRUG LEVEL MON 01/15/2017 SARA VINSON MD R Ot Z79.01 HALFWAY (CURRENT) USE OF ANTICOAGULANT 01/16/2017 KVNG HAMHER L BARYTES GRINDER Ot I25.5 ISCHEMIC CARDIOMYOPATHY 01/17/2017 JITENDRA ANSELMO L BARYTES GRINDER Ot G47.33 OBSTRUCTIVE SLEEP APNEA (ADULT) ( PEDIATR 01/17/2017 JITENDRA ANSELMO L BARYTES GRINDER Ot 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 01/17/2017 BAINIESHA ANSELMO L BARYTES GRINDER Ot I25.10 ATHSCL HEART DISEASE OF [place] CORONARY 01/17/2017 JITENDRA ANSELMO L BARYTES GRINDER Ot I48.2 CHRONIC ATRIAL FIBRILLATION 01/17/2017 BAIMA ANSELMO L BARYTES GRINDER Ot I50.32 CHRONIC DIASTOLIC (CONGESTIVE) HEART WINTER 01/17/2017 JITENDRA, ANSELMO L BARYTES GRINDER Ot 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, STAGE 4 (SEVERE ) 01/17/2017 JITENDRA ANSELMO L BARYTES GRINDER Ot Z79.01 HALFWAY (CURRENT) USE OF ANTICOAGULANT 01/18/2017 ANSELMO HAM L BARYTES GRINDER Ot G47.33 OBSTRUCTIVE SLEEP APNEA (ADULT) ( PEDIATR 01/18/2017 JITENDRA ANSELMO L BARYTES GRINDER Ot 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 01/18/2017 JITENDRA ANSELMO L BARYTES GRINDER Ot I25.10 ATHSCL HEART DISEASE OF [place] CORONARY 01/18/2017 ANSELMO HAM L BARYTES GRINDER Ot I48.2 CHRONIC ATRIAL FIBRILLATION 01/18/2017 JITENDRA ANSELMO L BARYTES GRINDER Ot I50.32 CHRONIC DIASTOLIC (CONGESTIVE) HEART WINTER 01/18/2017 JITENDRA ANSELMO L BARYTES GRINDER Ot 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, STAGE 4 (SEVERE ) 01/18/2017 JITENDRA ANSELMO L BARYTES GRINDER Ot Z79.01 HALFWAY (CURRENT) USE OF ANTICOAGULANT 01/24/2017 ALISSON BAUGH, SARA R Ot Z51.81 ENCOUNTER FOR THERAPEUTIC DRUG LEVEL MON 01/24/2017 SARA VINSON MD R Ot Z79.01 HALFWAY (CURRENT) USE OF ANTICOAGULANT 01/30/2017 ANSELMO HAM L BARYTES GRINDER Ot I25.5 ISCHEMIC CARDIOMYOPATHY 01/30/2017 RAYMOND DO, SHANEKA K Ot I12.9 HYPERTENSIVE CHRONIC KIDNEY DISEASE W ST 01/30/2017 RAYMOND DO, SHANEKA K Ot I25.10 ATHSCL HEART DISEASE OF [place] CORONARY 01/30/2017 RAYMOND DO, SHANEKA K Ot [...] 01/30/2017 RAYMOND DO, SHANEKA K Ot Z79.01 HALFWAY (CURRENT) USE OF ANTICOAGULANT 01/30/2017 RAYMOND DO, SHANEKA K Ot Z79.899 OTHER INSOLE TACKER (CURRENT) DRUG THERAPY 01/30/2017 RAYMOND DO, SHANEKA K Ot Z95.1 PRESENCE OF AORTOCORONARY BYPASS GRAFT 01/30/2017 RAYMOND DO, SHANEKA K Ot Z95.2 PRESENCE OF PROSTHETIC HEART VALVE 01/30/2017 RAYMOND DO, SHANEKA K Ot 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 IMPLANT 02/01/2017 RAYMOND DO, SHANEKA K Ot I12.9 HYPERTENSIVE CHRONIC KIDNEY DISEASE W ST 02/01/2017 RAYMOND DO, SHANEKA K Ot I25.10 ATHSCL HEART DISEASE OF [place] CORONARY 02/01/2017 RAYMOND DO, SHANEKA K Ot I48.2 CHRONIC ATRIAL FIBRILLATION 02/01/2017 RAYMOND DO, SHANEKA K Ot L97.911 NON-PRS [facility] UL UNSP PRT OF R LOW LEG LI 02/01/2017 RAYMOND DO, SHANEKA K Ot L97.921 NON-PRS [facility] ULC UNSP PRT OF L LOW LEG LI 02/01/2017 RAYMOND DO, SHANEKA K Ot N18.9 CHRONIC KIDNEY DISEASE, UNSPECIFIED 02/01/2017 RAYMOND DO, SHANEKA K Ot R22.41 LOCALIZED SWELLING, MASS AND LUMP, RIGHT 02/01/2017 RAYMOND DO, SHANEKA K Ot R74.8 ABNORMAL LEVELS OF OTHER SERUM ENZYMES 02/01/2017 RAYMOND DO, SHANEKA K Ot Z79.01 HALFWAY (CURRENT) USE OF ANTICOAGULANT 02/01/2017 RAYMOND DO, SHANEKA K Ot Z79.899 OTHER HALFWAY (CURRENT) DRUG THERAPY 02/01/2017 RAYMOND DO, SHANEKA K Ot Z95.1 PRESENCE OF AORTOCORONARY BYPASS GRAFT 02/01/2017 RAYMOND DO, SHANEKA K Ot Z95.2 PRESENCE OF PROSTHETIC HEART VALVE 02/01/2017 WYATT ANDRADE DOA K Ot 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 IMPLANT 02/04/2017 ANSELMO HAM BARYTES GRINDER Ot I25.5 ISCHEMIC CARDIOMYOPATHY 02/05/2017 ANSELMO HAM BARYTES GRINDER Ot I25.5 ISCHEMIC CARDIOMYOPATHY 02/11/2017 ALISSON BAUGH, SARA R Ot Z51.81 ENCOUNTER FOR THERAPEUTIC DRUG LEVEL MON 02/11/2017 ALISSON BAUGH, SARA R Ot Z79.01 HALFWAY (CURRENT) USE OF ANTICOAGULANT 02/12/2017 ANSELMO HAM BARYTES GRINDER Ot I25.5 ISCHEMIC CARDIOMYOPATHY 04/03/2017 JM GALVAN APRN Ot E86.9 VOLUME DEPLETION, UNSPECIFIED 04/03/2017 JM GALVAN APRN Ot 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 04/03/2017 JM GALVAN APRN Ot I25.10 ATHSCL HEART DISEASE OF [place] CORONARY 04/03/2017 JM GALVAN APRN Ot I48.91 UNSPECIFIED ATRIAL FIBRILLATION 04/03/2017 JM GALVAN APRN Ot I50.9 HEART FAILURE, UNSPECIFIED 04/03/2017 JM GALVAN APRN Ot 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 04/03/2017 JM GALVAN APRN Ot N18.9 CHRONIC KIDNEY DISEASE, UNSPECIFIED 04/03/2017 JM GALVAN APRN Ot R53.1 WEAKNESS 04/03/2017 JM GALVAN APRN Ot Z79.01 INSOLE TACKER (CURRENT) USE OF ANTICOAGULANT 04/03/2017 JM GALVAN [...] APRN Ot I25.10 ATHSCL HEART DISEASE OF [place] CORONARY 04/05/2017 JM GALVAN APRN Ot I48.91 UNSPECIFIED ATRIAL FIBRILLATION 04/05/2017 JM GALVAN APRN Ot I50.9 HEART FAILURE, UNSPECIFIED 04/05/2017 JM GALVAN WARP WORKER Ot 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 04/05/2017 JM GALVAN WARP WORKER Ot N18.9 CHRONIC KIDNEY DISEASE, UNSPECIFIED 04/05/2017 JM GALVAN APRN Ot R53.1 WEAKNESS 04/05/2017 JM GALVAN APRN Ot Z79.01 INSOLE TACKER (CURRENT) USE OF ANTICOAGULANT 04/05/2017 JM GALVAN WARP WORKER Ot 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 PACEMAKER 04/05/2017 JM GALVAN APRN Ot Z95.2 PRESENCE OF PROSTHETIC HEART VALVE 04/05/2017 JM GALVAN APRN Ot 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 IMPLANT 04/09/2017 JM GALVAN APRN Ot E86.9 VOLUME DEPLETION, UNSPECIFIED 04/09/2017 JM GALVAN APRN Ot 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 04/09/2017 JM GALVAN APRN Ot I25.10 ATHSCL HEART DISEASE OF [place] CORONARY 04/09/2017 JM GALVAN APRN Ot I48.91 UNSPECIFIED ATRIAL FIBRILLATION 04/09/2017 JM GALVAN APRN Ot I50.9 HEART FAILURE, UNSPECIFIED 04/09/2017 JM GALVAN APRN Ot 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 04/09/2017 JM GALVAN APRN Ot N18.9 CHRONIC KIDNEY DISEASE, UNSPECIFIED 04/09/2017 JM GALVAN APRN Ot R53.1 WEAKNESS 04/09/2017 JM GALVAN APRN Ot Z79.01 HALFWAY (CURRENT) USE OF ANTICOAGULANT 04/09/2017 JM GALVAN APRN Ot 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 PACEMAKER 04/09/2017 JM GALVAN APRN Ot Z95.2 PRESENCE OF PROSTHETIC HEART VALVE 04/09/2017 JM GALVAN APRN Ot 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 IMPLANT 04/12/2017 DELIO PAYTON MD Ot I50.9 HEART FAILURE, UNSPECIFIED 04/12/2017 DELIO PAYTON MD Ot 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 Bacteria identification in wound by culture - 01/30/17 15:01 Bacteria identification in wound by culture [id number] NR FREE TEXT EXTERNAL SENSITIVITY REPORTED AT [...] 13:20 Bacteria identification in wound by culture [id number] NRG FREE TEXT EXTERNAL SENSITIVITY REPORTED 03/16/17 9:25 NRG QUANTITY OF GROWTH Scant Growth NRG CALL POSITIVES (F1 HELP) CALLED TO [facility] 03/19/17 8 :[address] [facility] Bacterial susceptibility panel - 03/13/17 13:20 [...] OF GROWTH Isolated NRG Bacterial blood culture [id number] [facility] Bacterial susceptibility panel - 04/03/17 12:54 [...] ABO+Rh group AP NRG Transfusion band number [id number] NRG Blood group antibody screen NEGATIVE NRG [...] Status Pt. Type Provider Facility Loc./Unit Complaint [id number] 03/27/2017 08:19:00 2016 10:36:00 DIS Outpatient DELIO PAYTON MD [facility] WOUNDCARE [id number] 01/15/2017 12:51:00 2016 00:01:00 DIS Outpatient SARA VINSON MD [facility] LAB WARFARIN THERAPY MONTHLY TEST [id number] 04/03/2017 11:00:00 2016 13:28:00 DIS Emergency JM GALVAN APRN [facility] ER EXCESSIVE FLUID [id number] 01/30/2017 13:31:00 2016 16:41:00 DIS Emergency SHANEKA ANDRADE DO [facility] ER LEGS/ANKLES SWELLING [id number] 12/11/2016 11:04:00 2016 00:01:00 DIS Outpatient SARA VINSON MD [facility] LAB WARFARIN THERAPY MONTHLY TEST [id number] 08/30/2016 15:19:00 2015 00:01:00 DIS Outpatient ALISSON BAUGH, SARA R [facility] LAB WARFARIN THERAPY MONTHLY TEST [id number] 05/21/2016 10:59:00 2015 00:01:00 DIS Outpatient ALISSON BAUGH, SARA R [facility] LAB WARFARIN THERAPY MONTHLY TEST [id number] 01/23/2016 14:23:00 2015 00:01:00 DIS Outpatient SARA VINSON MD R [facility] LAB WARFARIN THERAPY MONTHLY TEST [id number] 12/11/2015 09:00:00 2015 11:07:00 DIS Emergency BEN BAUGH, RAMSEY Patterson [facility] ER NOSE BLEED [id number] 10/27/2015 18:27:00 2015 10:50:00 DIS Inpatient SARA VINSON MD R [facility] 4TH ANEMIA,CHF [id number] 09/22/2015 14:00:00 2014 00:01:00 DIS Outpatient SARA VINSON MD R [facility] LAB WARFARIN THERAPY MONTHLY TEST [id number] 08/03/2015 12:46:00 2014 23:59:59 CLS Outpatient SALVADOR CANALES APRN [facility] RAD PLEURAL EFFUSION [id number] 06/24/2015 10:08:00 2014 00:01:00 DIS Outpatient SARA VINSON MD R [facility] LAB WARFARIN THERAPY MONTHLY TEST [id number] 06/24/2015 09:53:00 2014 23:59:59 CLS Outpatient CAPRI SILVEIRA DO [facility] RAD HYPOXEMIA DYSPENA CHAD [id number] 06/16/2015 21:05:00 2014 06:45:00 DIS Outpatient SALVADOR CANALES APRN [facility] SLEEP CHAD,SNORING, [id number] 04/14/2015 13:41:00 2014 00:01:00 DIS Outpatient SARA VINSON MD R [facility] LAB WARFARIN THERAPY MONTHLY TEST [id number] 05/09/2015 12:47:00 2014 23:59:59 CLS Outpatient SALVADOR CANALES APRN [facility] RT HYPOXEMIA,DYSPNEA [id number] 03/29/2015 14:20:00 2014 17:50:00 DIS Inpatient ALISSON BAUGH, SARA Saleh [facility] CSD CHF SUSPECTED RLL/RML INFILTRATE CHRONIC A-FIB [id number] 01/26/2015 14:28:00 2014 00:01:00 DIS Outpatient SARA VINSON MD [facility] LAB WARFARIN THERAPY MONTHLY TEST [id number] 11/25/2014 11:40:00 2014 23:59:59 CLS Outpatient JUAN GAMBOA MD [facility] CARD CHRONIC AFIB CAD PACEMAKER [id number] 2014 00:34:00 2014 23:59:59 CLS Preadmit OTHER, UNLISTED [facility] LAB HALFWAY ANTICOAGULANT USE,A-FIB [id number] 10/19/2014 09:08:00 2014 00:01:00 DIS Outpatient OTHER, UNLISTED [facility] LAB HALFWAY ANTICOAGULANT USE,A-FIB [id number] 11/15/2014 09:51:00 2014 23:59:59 CLS Outpatient JUAN GAMBOA MD [facility] CARD CHRONIC AFIB CAD PACEMAKER [id number] 06/18/2014 09:39:00 2013 00:01:00 DIS Outpatient OTHER, UNLISTED [facility] LAB HALFWAY ANTICOAGULANT USE,A-FIB [id number] 02/17/2014 09:58:00 2013 00:01:00 DIS Outpatient OTHER, UNLISTED [facility] LAB HALFWAY ANTICOAGULANT USE,A-FIB [id number] 11/13/2013 11:54:00 2013 00:01:00 DIS Outpatient OTHER, UNLISTED [facility] LAB HALFWAY ANTICOAGULANT USE,A-FIB [id number] 06/15/2013 08:06:00 2012 00:01:00 DIS Outpatient GERDA LEIVA M [facility] LAB INSOLE TACKER ANTICOAGULANT USE,A-FIB [id number] 04/27/2017 14:58:00 ACT Inpatient WILBER ESPINOZA DO [facility] ICU EXPLORATORY LAPAROSCOPY [id number] 04/16/2017 00:13:00 PEN Preadmit ALISSON BAUGH, SARA R [facility] LAB WARFARIN THERAPY MONTHLY TEST [id number] 01/15/2017 11:31:00 ACT Outpatient BAINIESHA, ANSELMO L BARYTES GRINDER [facility] CARD CARDIOMYOPATHY [id number] 01/08/2017 11:31:00 ACT Outpatient BAIMA, ANSELMO L BARYTES GRINDER [facility] CARD CARDIOMYOPATHY [id number] 12/25/2016 11:36:00 ACT Outpatient BAIMA, ANSELMO L BARYTES GRINDER [facility] CARD CAD,CHRONIC ATRIAL FIBRILLATION,CHF,HYPERTENSION [id number] 12/18/2016 12:35:00 ACT Outpatient BAIMA, ANSELMO L BARYTES GRINDER [facility] LAB CAD,HTN,CHRONIC A FIB,CHAD [id number] 12/11/2016 10:57:00 ACT Outpatient BAIMA, ANSELMO L BARYTES GRINDER [facility] LAB CAF,CHF,DYSPNEA,HYPERTENSION,CAD [id number] 11/01/2016 15:40:00 ACT Outpatient BAIMA, ANSELMO L BARYTES GRINDER [facility] LAB CHF,CAD,DYSPNEA [id number] 03/29/2016 13:31:00 ACT Outpatient YUSUF ABDI MD, FACC, FACP CCDS [facility] LAB CAD,HERD,HYPERTENSION,CHF,DYSPNEA [id number] 01/23/2016 14:24:00 ACT Outpatient BAINIESHA, ANSELMO L BARYTES GRINDER [facility] LAB CHRONIC DIASTOLIC CHF,HYPERTENSION [id number] 12/26/2015 11:30:00 ACT Outpatient YUSUF ABDI MD, FACC, FACP CCDS [facility] LAB CAD,CHRONIC ANTICOAGULATION,HPERTENSION [id number] 11/25/2015 14:59:00 Document Registration [id number] 11/23/2015 10:05:00 Document Registration [id number] 2015 16:05:00 ACT Outpatient ALISSON BAUGH, SARA Saleh [facility] DM, CHF, A-FIB [id number] 03/19/2013 09:20:00 Document Registration [id number] 12/02/2012 09:24:00 Document Registration [id number] 07/14/2012 13:42:00 Document Registration
[2017-04-30] MEDS: FLUCONAZOLE 200 MG/100 ML 100 ML IV SCH (09:34)
[2017-04-30] MEDS: DIGOXIN 0.25 MG/ML (LANOXIN) 2 ML AMP IV SCH (09:34)
[2017-04-30] MEDS: LORazepam INJ 2 MG/ML (ATIVAN) VIAL ONE ×2 (09:34→09:37)
[2017-04-30] MEDS: PANTOPRAZOLE 40 MG/10 ML (PROTONIX) VIAL IV SCH (09:34)
--- OUTSIDE RECORDS SUMMARY | 2017-04-30 09:36 | XMS REPORT | Continuity of Care Document ---
Author Author [facility] Organization [facility] Address Unknown Phone Unavailable Care Team Providers Care Inside Phone Sales Name Role Phone PCP Unavailable Source Comments Some departments are not documenting in the electronic medical record. If you do not see the information that you expected, contact Release of Information in the Health Information Management department at [phone] for further assistance in locating additional records.[facility] Active Allergies and Adverse Reactions Allergen [...]
--- OUTSIDE RECORDS SUMMARY | 2017-04-30 09:40 | XMS REPORT | Continuity of Care Document ---
Author Author [facility] Organization [facility] Address Unknown Phone Unavailable Allergies Active Description Code Type Severity Reaction Onset Reported/Identified Relationship to Patient Clinical Status Yes KEELEY Inhibitors [id number] Drug Allergy Unknown N/A 07/14/2012 Yes KEELEY Inhibitors [id number] Drug Allergy Moderate N/A 03/30/2015 Yes atenolol [id number] Drug Allergy Moderate swelling throat 03/30/2015 Yes metoprolol [id number] Drug Allergy Unknown N/A 03/30/2015 Yes STATIN DRUGS STATIN DRUGS Unknown N/A 10/27/2015 Yes KEELEY Inhibitors [id number] Drug Allergy Severe wheezing and sw 11/01/2015 Yes atenolol [id number] Drug Allergy Severe swelling throat 11/01/2015 Yes metoprolol [id number] Drug Allergy Severe N/A 11/01/2015 Yes metoprolol [id number] Drug Allergy Severe throat swelling 11/01/2015 Yes Utvnyab-Ixt-Yfh Reductase Inhibitor [id number] Drug Allergy Unknown N/A 11/01/2015 Medications Problems [...] ALISSON BAUGH, SARA R Ot V58.83 03/19/2015 COOPER BAUGH, [...] CANALES APRN Ot G47.33 08/25/2015 SALVADOR CANALES WAREHOUSE AND RECEIVING SUPERVISOR Ot J90 08/25/2015 SALVADOR CANALES WAREHOUSE AND RECEIVING SUPERVISOR Ot R06.00 08/25/2015 SALVADOR CANALES WAREHOUSE AND RECEIVING SUPERVISOR Ot R09.02 09/12/2015 SARA VINSON MD R Ot Z51.81 09/12/2015 SARA VINSON MD R Ot Z79.01 09/14/2015 SALVADOR CANALES APRN Ot G47.33 09/14/2015 SALVADOR CANALES APRN Ot J90 09/14/2015 SALVADOR CANALES APRN Ot R06.00 09/14/2015 SALVADOR CANALES APRN Ot R09.02 10/19/2015 SARA VINSON MD R Ot Z51.81 ENCOUNTER FOR THERAPEUTIC DRUG LEVEL MON 10/19/2015 SARA VINSON MD R Ot Z79.01 CUSTODIAL (CURRENT) USE OF ANTICOAGULANT 10/27/2015 OTHER, UNLISTED [...] R Ot I25.10 ATHSCL HEART DISEASE OF [place] CORONARY 11/02/2015 ALISSON BAUGH, SARA R Ot [...] EPISTAXIS 12/11/2015 RAMSEY CONTRERAS MD Ot Z79.01 CUSTODIAL (CURRENT) USE OF ANTICOAGULANT 12/14/2015 SARA VINSON [...] FACP CCDS Ot I25.10 01/17/2016 JIN BAUGH [facility], ALI FACP CCDS Ot I48.2 01/17/2016 JIN BAUGH [facility], ALI FACP CCDS Ot I50.32 01/17/2016 JIN BAUGH [facility], ALI FACP CCDS Ot Z79.01 01/17/2016 JIN BAUGH [facility], ALI FACP CCDS Ot Z95.1 01/24/2016 ANSELMO HAM HOME CARE GIVER Ot I10 01/24/2016 ANSELMO HAM HOME CARE GIVER Ot I50.32 01/25/2016 SARA VINSON MD R Ot Z51.81 ENCOUNTER FOR THERAPEUTIC DRUG LEVEL MON 01/25/2016 SARA VINSON MD R Ot Z79.01 CUSTODIAL (CURRENT) USE OF ANTICOAGULANT 01/26/2016 SARA VINSON MD R Ot Z51.81 01/26/2016 SARA VINSON MD R Ot Z79.01 02/14/2016 ANSELMO HAM HOME CARE GIVER Ot I10 ESSENTIAL (PRIMARY) HYPERTENSION 02/14/2016 ANSELMO HAM HOME CARE GIVER Ot I50.32 CHRONIC DIASTOLIC (CONGESTIVE) HEART WINTER 03/06/2016 SARA VINSON MD R Ot Z51.81 ENCOUNTER FOR THERAPEUTIC DRUG LEVEL MON 03/06/2016 SARA VINSON MD R Ot Z79.01 CUSTODIAL (CURRENT) USE OF ANTICOAGULANT 03/07/2016 SARA VINSON MD R Ot Z51.81 ENCOUNTER FOR THERAPEUTIC DRUG LEVEL MON 03/07/2016 SARA VINSON MD R Ot Z79.01 CUSTODIAL (CURRENT) USE OF ANTICOAGULANT 03/09/2016 SARA VINSON MD R Ot Z51.81 ENCOUNTER FOR THERAPEUTIC DRUG LEVEL MON 03/09/2016 SARA VINSON MD R Ot Z79.01 ADULT BASIC EDUCATION INSTRUCTOR (CURRENT) USE OF ANTICOAGULANT 04/03/2016 SARA VINSON MD R Ot Z51.81 ENCOUNTER FOR THERAPEUTIC DRUG LEVEL MON 04/03/2016 SARA VINSON MD R Ot Z79.01 CUSTODIAL (CURRENT) USE OF ANTICOAGULANT 04/04/2016 JIN BAUGH FACC, ALI FACP CCDS Ot I10 ESSENTIAL (PRIMARY) HYPERTENSION 04/04/2016 JIN BAUGH FACC, ALI FACP CCDS Ot I25.10 ATHSCL HEART DISEASE OF [place] CORONARY 04/04/2016 JIN BAUGH FACC, ALI FACP CCDS Ot I50.32 CHRONIC DIASTOLIC (CONGESTIVE) HEART WINTER 04/04/2016 JIN BAUGH FACC, ALI FACP CCDS Ot K21.9 GASTRO-ESOPHAGEAL REFLUX DISEASE WITHOUT 04/04/2016 JIN BAUGH FACC, ALI FACP CCDS Ot R06.02 SHORTNESS OF BREATH 04/04/2016 JIN BAUGH FACC, ALI FACP CCDS Ot Z79.01 CUSTODIAL (CURRENT) USE OF ANTICOAGULANT 04/04/2016 JIN BAUGH FACC, ALI FACP CCDS Ot Z95.1 PRESENCE OF AORTOCORONARY BYPASS GRAFT 04/25/2016 JIN BAUGH FACC, ALI FACP CCDS Ot I10 ESSENTIAL (PRIMARY) HYPERTENSION 04/25/2016 JIN BAUGH FACC, ALI FACP CCDS Ot I25.10 ATHSCL HEART DISEASE OF [place] CORONARY 04/25/2016 JIN BAUGH FACC, ALI FACP CCDS Ot I50.32 CHRONIC DIASTOLIC (CONGESTIVE) HEART WINTER 04/25/2016 JIN COTTOC, ALI FACP CCDS Ot K21.9 GASTRO-ESOPHAGEAL REFLUX DISEASE WITHOUT 04/25/2016 JIN COTTOC, ALI FACP CCDS Ot R06.02 SHORTNESS OF BREATH 04/25/2016 JIN BAUGH FACC, ALI FACP CCDS Ot Z79.01 ADULT BASIC EDUCATION INSTRUCTOR (CURRENT) USE OF ANTICOAGULANT 04/25/2016 JIN BAUGH FACC, ALI FACP CCDS Ot Z95.1 PRESENCE OF AORTOCORONARY BYPASS GRAFT 05/25/2016 SARA VINSON MD R Ot Z51.81 ENCOUNTER FOR THERAPEUTIC DRUG LEVEL MON 05/25/2016 SARA VINSON MD R Ot Z79.01 ADULT BASIC EDUCATION INSTRUCTOR (CURRENT) USE OF ANTICOAGULANT 06/04/2016 SARA VINSON MD R Ot Z51.81 ENCOUNTER FOR THERAPEUTIC DRUG LEVEL MON 06/04/2016 SARA VINSON MD R Ot Z79.01 ADULT BASIC EDUCATION INSTRUCTOR (CURRENT) USE OF ANTICOAGULANT 06/05/2016 SARA VINSON MD R Ot Z51.81 ENCOUNTER FOR THERAPEUTIC DRUG LEVEL MON 06/05/2016 SARA VINSON MD R Ot Z79.01 ADULT BASIC EDUCATION INSTRUCTOR (CURRENT) USE OF ANTICOAGULANT 06/22/2016 SARA VINSON MD R Ot Z51.81 ENCOUNTER FOR THERAPEUTIC DRUG LEVEL MON 06/22/2016 SARA VINSON MD R Ot Z79.01 ADULT BASIC EDUCATION INSTRUCTOR (CURRENT) USE OF ANTICOAGULANT 06/27/2016 SARA VINSON MD R Ot Z51.81 ENCOUNTER FOR THERAPEUTIC DRUG LEVEL MON 06/27/2016 SARA VINSON MD R Ot Z79.01 CUSTODIAL (CURRENT) USE OF ANTICOAGULANT 07/30/2016 SARA VINSON MD R Ot Z51.81 ENCOUNTER FOR THERAPEUTIC DRUG LEVEL MON 07/30/2016 SARA VINSON MD R Ot Z79.01 CUSTODIAL (CURRENT) USE OF ANTICOAGULANT 08/16/2016 SARA VINSON MD R Ot Z51.81 ENCOUNTER FOR THERAPEUTIC DRUG LEVEL MON 08/16/2016 SARA VINSON MD R Ot Z79.01 CUSTODIAL (CURRENT) USE OF ANTICOAGULANT 09/19/2016 SARA VINSON MD R Ot Z51.81 ENCOUNTER FOR THERAPEUTIC DRUG LEVEL MON 09/19/2016 SARA VINSON MD R Ot Z79.01 CUSTODIAL (CURRENT) USE OF ANTICOAGULANT 09/25/2016 JUAN GAMBOA [...] Ot 427.31 ATRIAL FIBRILLATION 09/25/2016 SALVADOR CANALES WAREHOUSE AND RECEIVING SUPERVISOR Ot 327.23 OBSTRUCTIVE SLEEP APNEA (ADULT) ( PEDIATR 09/25/2016 SALVADOR CANALES WAREHOUSE AND RECEIVING SUPERVISOR Ot 427.31 ATRIAL FIBRILLATION 09/25/2016 SALVADOR CANALES WAREHOUSE AND RECEIVING SUPERVISOR Ot 799.02 HYPOXEMIA 09/25/2016 RAOUL WORKMAN CAPRI M Ot 327.23 OBSTRUCTIVE SLEEP APNEA (ADULT) (PEDIATR 09/25/2016 RAOUL WORKMAN CAPRI Cole Ot 799.02 HYPOXEMIA 09/25/2016 SALVADOR CANALES APRN Ot G47.33 OBSTRUCTIVE SLEEP APNEA (ADULT) ( PEDIATR 09/25/2016 SALVADOR CANALES WAREHOUSE AND RECEIVING SUPERVISOR Ot J90 PLEURAL EFFUSION, NOT ELSEWHERE CLASSIFI 09/25/2016 SALVADOR CANALES APRN Ot R06.00 DYSPNEA, UNSPECIFIED 09/25/2016 SALVADOR CANALES APRN Ot R09.02 HYPOXEMIA 09/25/2016 Ot R06.02 SHORTNESS OF BREATH 09/25/2016 Ot Z95.2 PRESENCE OF PROSTHETIC HEART VALVE 09/25/2016 Ot E05.90 THYROTOXICOSIS, UNSP WITHOUT THYROTOXIC 09/25/2016 Ot I25.10 ATHSCL HEART DISEASE OF [place] CORONARY 09/25/2016 Ot I48.91 UNSPECIFIED ATRIAL FIBRILLATION [...] CCDS Ot I25.10 ATHSCL HEART DISEASE OF [place] CORONARY 09/25/2016 JIN BAUGH FACC, ALI FACP CCDS Ot I48.2 CHRONIC ATRIAL FIBRILLATION 09/25/2016 JIN BAUGH FACC, YUSUF FACP CCDS Ot I50.32 CHRONIC DIASTOLIC (CONGESTIVE) HEART WINTER 09/25/2016 JIN BAUGH FACC, ALI FACP CCDS Ot Z79.01 ADULT BASIC EDUCATION INSTRUCTOR (CURRENT) USE OF ANTICOAGULANT 09/25/2016 JIN BAUGH FAC, ALI FACP CCDS Ot Z95.1 PRESENCE OF AORTOCORONARY BYPASS GRAFT 09/25/2016 ANSELMO HAM L HOME CARE GIVER Ot I10 ESSENTIAL (PRIMARY) HYPERTENSION 09/25/2016 ANSELMO HAM L HOME CARE GIVER Ot I50.32 CHRONIC DIASTOLIC (CONGESTIVE) HEART WINTER 09/25/2016 JIN BAUGH FAC, ALI FACP CCDS Ot I10 ESSENTIAL (PRIMARY) HYPERTENSION 09/25/2016 JIN BAUGH FACC, ALI FACP CCDS Ot I25.10 ATHSCL HEART DISEASE OF [place] CORONARY 09/25/2016 JIN BAGUH FAC, ALI FACP CCDS Ot I50.32 CHRONIC DIASTOLIC (CONGESTIVE) HEART WINTER 09/25/2016 JIN BAUGH FACVanda, ALI FACP CCDS Ot K21.9 GASTRO-ESOPHAGEAL REFLUX DISEASE WITHOUT 09/25/2016 JIN BAUGH FAC, ALI FACP CCDS Ot R06.02 SHORTNESS OF BREATH 09/25/2016 JIN COTTO, ALI FACP CCDS Ot Z79.01 ADULT BASIC EDUCATION INSTRUCTOR (CURRENT) USE OF ANTICOAGULANT 09/25/2016 JIN COTTO, ALI FACP CCDS Ot Z95.1 PRESENCE OF AORTOCORONARY BYPASS GRAFT 09/25/2016 SARA VINSON MD R Ot Z51.81 ENCOUNTER FOR THERAPEUTIC DRUG LEVEL MON 09/25/2016 ALISSON BAUGH SARA R Ot Z79.01 CUSTODIAL (CURRENT) USE OF ANTICOAGULANT 09/25/2016 ALISSON BAUGH SARA R Ot Z51.81 ENCOUNTER FOR THERAPEUTIC DRUG LEVEL MON 09/25/2016 ALISSON BAUGH SARA R Ot Z79.01 ADULT BASIC EDUCATION INSTRUCTOR (CURRENT) USE OF ANTICOAGULANT 10/30/2016 SARA VINSON MD R Ot Z51.81 ENCOUNTER FOR THERAPEUTIC DRUG LEVEL MON 10/30/2016 SARA VINSON MD R Ot Z79.01 ADULT BASIC EDUCATION INSTRUCTOR (CURRENT) USE OF ANTICOAGULANT 11/02/2016 ANSELMO HAM HOME CARE GIVER Ot I10 ESSENTIAL (PRIMARY) HYPERTENSION 11/02/2016 ANSELMO HAM L HOME CARE GIVER Ot I25.10 ATHSCL HEART DISEASE OF [place] CORONARY 11/02/2016 BAIMA, ANSELMO L HOME CARE GIVER Ot I48.2 CHRONIC ATRIAL FIBRILLATION 11/02/2016 BAIMA, ANSELMO L HOME CARE GIVER Ot I50.32 CHRONIC DIASTOLIC (CONGESTIVE) HEART WINTER 11/02/2016 BAIMA, ANSELMO L HOME CARE GIVER Ot R06.02 SHORTNESS OF BREATH 11/02/2016 BAIMA, ANSELMO L HOME CARE GIVER Ot Z79.01 ADULT BASIC EDUCATION INSTRUCTOR (CURRENT) USE OF ANTICOAGULANT 11/16/2016 SARA VINSON MD Ot Z51.81 ENCOUNTER FOR THERAPEUTIC DRUG LEVEL MON 11/16/2016 SARA VINSON MD R Ot Z79.01 ADULT BASIC EDUCATION INSTRUCTOR (CURRENT) USE OF ANTICOAGULANT 2016 BAIMA, ANSELMO L HOME CARE GIVER Ot I10 ESSENTIAL (PRIMARY) HYPERTENSION 2016 BAIMA, ANSELMO L HOME CARE GIVER Ot I25.10 ATHSCL HEART DISEASE OF [place] CORONARY 2016 BAIMA, ANSELMO L HOME CARE GIVER Ot I48.2 CHRONIC ATRIAL FIBRILLATION 2016 BAIMA, ANSELMO L HOME CARE GIVER Ot I50.32 CHRONIC DIASTOLIC (CONGESTIVE) HEART WINTER 2016 ALBERTMA ANSELMO L HOME CARE GIVER Ot R06.02 SHORTNESS OF BREATH 2016 BAIMA ANSELMO L HOME CARE GIVER Ot Z79.01 CUSTODIAL (CURRENT) USE OF ANTICOAGULANT 12/12/2016 BAIMA, ANSELMO L HOME CARE GIVER Ot I10 ESSENTIAL (PRIMARY) HYPERTENSION 12/12/2016 BAIMA, ANSELMO L HOME CARE GIVER Ot I25.10 ATHSCL HEART DISEASE OF [place] CORONARY 12/12/2016 BAIMA, ANSELMO L HOME CARE GIVER Ot I48.2 CHRONIC ATRIAL FIBRILLATION 12/12/2016 ALBERTMA, ANSELMO L HOME CARE GIVER Ot I50.32 CHRONIC DIASTOLIC (CONGESTIVE) HEART WINTER 12/12/2016 BAIMA, ANSELMO L HOME CARE GIVER Ot R06.02 SHORTNESS OF BREATH 12/12/2016 BAIMA, ANSELMO L HOME CARE GIVER Ot Z79.01 CUSTODIAL (CURRENT) USE OF ANTICOAGULANT 12/12/2016 SARA VINSON MD R Ot Z51.81 ENCOUNTER FOR THERAPEUTIC DRUG LEVEL MON 12/12/2016 SARA VINSON MD Ot Z79.01 CUSTODIAL (CURRENT) USE OF ANTICOAGULANT 12/19/2016 ANSELMO HAM L HOME CARE GIVER Ot G47.33 OBSTRUCTIVE SLEEP APNEA (ADULT) ( PEDIATR 12/19/2016 BAIMA, ANSELMO L HOME CARE GIVER Ot I11.0 HYPERTENSIVE HEART DISEASE WITH HEART FA 12/19/2016 ANSELMO HAM L HOME CARE GIVER Ot I25.10 ATHSCL HEART DISEASE OF [place] CORONARY 12/19/2016 ANSELMO HAM HOME CARE GIVER Ot I48.2 CHRONIC ATRIAL FIBRILLATION 12/19/2016 ANSELMO HAM L HOME CARE GIVER Ot I50.32 CHRONIC DIASTOLIC (CONGESTIVE) HEART WINTER 12/19/2016 ANESLMO HAM L HOME CARE GIVER Ot Z79.01 ADULT BASIC EDUCATION INSTRUCTOR (CURRENT) USE OF ANTICOAGULANT 12/19/2016 ANSELMO HAM L HOME CARE GIVER Ot 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 PACEMAKER 12/19/2016 ANSELMO HAM L HOME CARE GIVER Ot Z95.1 PRESENCE OF AORTOCORONARY BYPASS GRAFT 12/24/2016 ALISSON BAUGH, SARA R Ot Z51.81 ENCOUNTER FOR THERAPEUTIC DRUG LEVEL MON 12/24/2016 SARA VINSON MD R Ot Z79.01 ADULT BASIC EDUCATION INSTRUCTOR (CURRENT) USE OF ANTICOAGULANT 12/25/2016 ANSELMO HAM HOME CARE GIVER Ot I25.10 ATHSCL HEART DISEASE OF [place] CORONARY 12/25/2016 SARA VINSON MD R Ot Z51.81 ENCOUNTER FOR THERAPEUTIC DRUG LEVEL MON 12/25/2016 SARA VINSON MD R Ot Z79.01 CUSTODIAL (CURRENT) USE OF ANTICOAGULANT 12/27/2016 ANSELMO HAM HOME CARE GIVER Ot G47.33 OBSTRUCTIVE SLEEP APNEA (ADULT) ( PEDIATR 12/27/2016 ANSELMO HAM HOME CARE GIVER Ot 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 12/27/2016 ANSELMO HAM L HOME CARE GIVER Ot I25.10 ATHSCL HEART DISEASE OF [place] CORONARY 12/27/2016 ANSELMO HAM L HOME CARE GIVER Ot I48.2 CHRONIC ATRIAL FIBRILLATION 12/27/2016 ANSELMO HAM L HOME CARE GIVER Ot I50.32 CHRONIC DIASTOLIC (CONGESTIVE) HEART WINTER 12/27/2016 ANSELMO HAM L HOME CARE GIVER Ot 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, STAGE 4 (SEVERE ) 12/27/2016 ANSELMO HAM L HOME CARE GIVER Ot Z79.01 ADULT BASIC EDUCATION INSTRUCTOR (CURRENT) USE OF ANTICOAGULANT 01/01/2017 ANSELMO HAM L HOME CARE GIVER Ot I10 ESSENTIAL (PRIMARY) HYPERTENSION 01/01/2017 BAIMA, ANSELMO L HOME CARE GIVER Ot I25.10 ATHSCL HEART DISEASE OF [place] CORONARY 01/01/2017 BAINIESHA ANSELMO L HOME CARE GIVER Ot I48.2 CHRONIC ATRIAL FIBRILLATION 01/01/2017 BAIMA, ANSELMO L HOME CARE GIVER Ot I50.32 CHRONIC DIASTOLIC (CONGESTIVE) HEART WINTER 01/01/2017 KVNG HAMHER L HOME CARE GIVER Ot R06.02 SHORTNESS OF BREATH 01/01/2017 ALBERTNIESHA ANSELMO L HOME CARE GIVER Ot Z79.01 CUSTODIAL (CURRENT) USE OF ANTICOAGULANT 01/08/2017 BAIMA ANSELMO L HOME CARE GIVER Ot I25.5 ISCHEMIC CARDIOMYOPATHY 01/08/2017 BAIMA, ANSELMO L HOME CARE GIVER Ot G47.33 OBSTRUCTIVE SLEEP APNEA (ADULT) ( PEDIATR 01/08/2017 BAIMA, ANSELMO L HOME CARE GIVER Ot I11.0 HYPERTENSIVE HEART DISEASE WITH HEART FA 01/08/2017 ALBERTNIESHA ANSELMO L HOME CARE GIVER Ot I25.10 ATHSCL HEART DISEASE OF [place] CORONARY 01/08/2017 ALBERTKVNG SCHERERHER L HOME CARE GIVER Ot I48.2 CHRONIC ATRIAL FIBRILLATION 01/08/2017 ALBERTMA ANSELMO L HOME CARE GIVER Ot I50.32 CHRONIC DIASTOLIC (CONGESTIVE) HEART WINTER 01/08/2017 BAINIESHA ANSELMO L HOME CARE GIVER Ot Z79.01 CUSTODIAL (CURRENT) USE OF ANTICOAGULANT 01/08/2017 JITENDRA ANSELMO L HOME CARE GIVER Ot 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 PACEMAKER 01/08/2017 JITENDRA ANSELMO L HOME CARE GIVER Ot Z95.1 PRESENCE OF AORTOCORONARY BYPASS GRAFT 01/15/2017 SARA VINSON MD R Ot Z51.81 ENCOUNTER FOR THERAPEUTIC DRUG LEVEL MON 01/15/2017 SARA VINSON MD R Ot Z79.01 ADULT BASIC EDUCATION INSTRUCTOR (CURRENT) USE OF ANTICOAGULANT 01/15/2017 SARA VINSON MD R Ot Z51.81 ENCOUNTER FOR THERAPEUTIC DRUG LEVEL MON 01/15/2017 SARA VINSON MD R Ot Z79.01 CUSTODIAL (CURRENT) USE OF ANTICOAGULANT 01/16/2017 KVNG HAMHER L HOME CARE GIVER Ot I25.5 ISCHEMIC CARDIOMYOPATHY 01/17/2017 JITENDRA ANSELMO L HOME CARE GIVER Ot G47.33 OBSTRUCTIVE SLEEP APNEA (ADULT) ( PEDIATR 01/17/2017 JITENDRA ANSELMO L HOME CARE GIVER Ot 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 01/17/2017 BAINIESHA ANSELMO L HOME CARE GIVER Ot I25.10 ATHSCL HEART DISEASE OF [place] CORONARY 01/17/2017 JITENDRA ANSELMO L HOME CARE GIVER Ot I48.2 CHRONIC ATRIAL FIBRILLATION 01/17/2017 BAIMA ANSELMO L HOME CARE GIVER Ot I50.32 CHRONIC DIASTOLIC (CONGESTIVE) HEART WINTER 01/17/2017 JITENDRA, ANSELMO L HOME CARE GIVER Ot 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, STAGE 4 (SEVERE ) 01/17/2017 JITENDRA ANSELMO L HOME CARE GIVER Ot Z79.01 CUSTODIAL (CURRENT) USE OF ANTICOAGULANT 01/18/2017 ANSELMO HAM L HOME CARE GIVER Ot G47.33 OBSTRUCTIVE SLEEP APNEA (ADULT) ( PEDIATR 01/18/2017 JITENDRA ANSELMO L HOME CARE GIVER Ot 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 01/18/2017 JITENDRA ANSELMO L HOME CARE GIVER Ot I25.10 ATHSCL HEART DISEASE OF [place] CORONARY 01/18/2017 ANSELMO HAM L HOME CARE GIVER Ot I48.2 CHRONIC ATRIAL FIBRILLATION 01/18/2017 JITENDRA ANSELMO L HOME CARE GIVER Ot I50.32 CHRONIC DIASTOLIC (CONGESTIVE) HEART WINTER 01/18/2017 JITENDRA ANSELMO L HOME CARE GIVER Ot 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, STAGE 4 (SEVERE ) 01/18/2017 JITENDRA ANSELMO L HOME CARE GIVER Ot Z79.01 CUSTODIAL (CURRENT) USE OF ANTICOAGULANT 01/24/2017 ALISSON BAUGH, SARA R Ot Z51.81 ENCOUNTER FOR THERAPEUTIC DRUG LEVEL MON 01/24/2017 SARA VINSON MD R Ot Z79.01 CUSTODIAL (CURRENT) USE OF ANTICOAGULANT 01/30/2017 ANSELMO HAM L HOME CARE GIVER Ot I25.5 ISCHEMIC CARDIOMYOPATHY 01/30/2017 RAYMOND DO, SHANEKA K Ot I12.9 HYPERTENSIVE CHRONIC KIDNEY DISEASE W ST 01/30/2017 RAYMOND DO, SHANEKA K Ot I25.10 ATHSCL HEART DISEASE OF [place] CORONARY 01/30/2017 RAYMOND DO, SHANEKA K Ot [...] 01/30/2017 RAYMOND DO, SHANEKA K Ot Z79.01 CUSTODIAL (CURRENT) USE OF ANTICOAGULANT 01/30/2017 RAYMOND DO, SHANEKA K Ot Z79.899 OTHER ADULT BASIC EDUCATION INSTRUCTOR (CURRENT) DRUG THERAPY 01/30/2017 RAYMOND DO, SHANEKA K Ot Z95.1 PRESENCE OF AORTOCORONARY BYPASS GRAFT 01/30/2017 RAYMOND DO, SHANEKA K Ot Z95.2 PRESENCE OF PROSTHETIC HEART VALVE 01/30/2017 RAYMOND DO, SHANEKA K Ot 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 IMPLANT 02/01/2017 RAYMOND DO, SHANEKA K Ot I12.9 HYPERTENSIVE CHRONIC KIDNEY DISEASE W ST 02/01/2017 RAYMOND DO, SHANEKA K Ot I25.10 ATHSCL HEART DISEASE OF [place] CORONARY 02/01/2017 RAYMOND DO, SHANEKA K Ot I48.2 CHRONIC ATRIAL FIBRILLATION 02/01/2017 RAYMOND DO, SHANEKA K Ot L97.911 NON-PRS [facility] UL UNSP PRT OF R LOW LEG LI 02/01/2017 RAYMOND DO, SHANEKA K Ot L97.921 NON-PRS [facility] ULC UNSP PRT OF L LOW LEG LI 02/01/2017 RAYMOND DO, SHANEKA K Ot N18.9 CHRONIC KIDNEY DISEASE, UNSPECIFIED 02/01/2017 RAYMOND DO, SHANEKA K Ot R22.41 LOCALIZED SWELLING, MASS AND LUMP, RIGHT 02/01/2017 RAYMOND DO, SHANEKA K Ot R74.8 ABNORMAL LEVELS OF OTHER SERUM ENZYMES 02/01/2017 RAYMOND DO, SHANEKA K Ot Z79.01 CUSTODIAL (CURRENT) USE OF ANTICOAGULANT 02/01/2017 RAYMOND DO, SHANEKA K Ot Z79.899 OTHER CUSTODIAL (CURRENT) DRUG THERAPY 02/01/2017 RAYMOND DO, SHANEAK K Ot Z95.1 PRESENCE OF AORTOCORONARY BYPASS GRAFT 02/01/2017 RAYMOND DO, SHANEKA K Ot Z95.2 PRESENCE OF PROSTHETIC HEART VALVE 02/01/2017 WYATT ANDRADE DOA K Ot 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 IMPLANT 02/04/2017 ANSELMO HAM HOME CARE GIVER Ot I25.5 ISCHEMIC CARDIOMYOPATHY 02/05/2017 ANSELMO HAM HOME CARE GIVER Ot I25.5 ISCHEMIC CARDIOMYOPATHY 02/11/2017 ALISSON BAUGH, SARA R Ot Z51.81 ENCOUNTER FOR THERAPEUTIC DRUG LEVEL MON 02/11/2017 ALISSON BAUGH, SARA R Ot Z79.01 CUSTODIAL (CURRENT) USE OF ANTICOAGULANT 02/12/2017 ANSELMO HAM HOME CARE GIVER Ot I25.5 ISCHEMIC CARDIOMYOPATHY 04/03/2017 JM GALVAN APRN Ot E86.9 VOLUME DEPLETION, UNSPECIFIED 04/03/2017 JM GALVAN APRN Ot 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 04/03/2017 JM GALVAN APRN Ot I25.10 ATHSCL HEART DISEASE OF [place] CORONARY 04/03/2017 JM GALVAN APRN Ot I48.91 UNSPECIFIED ATRIAL FIBRILLATION 04/03/2017 JM GALVAN APRN Ot I50.9 HEART FAILURE, UNSPECIFIED 04/03/2017 JM GALVAN APRN Ot 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 04/03/2017 JM GALVAN APRN Ot N18.9 CHRONIC KIDNEY DISEASE, UNSPECIFIED 04/03/2017 JM GALVAN APRN Ot R53.1 WEAKNESS 04/03/2017 JM GALVAN APRN Ot Z79.01 ADULT BASIC EDUCATION INSTRUCTOR (CURRENT) USE OF ANTICOAGULANT 04/03/2017 JM GALVAN [...] APRN Ot I25.10 ATHSCL HEART DISEASE OF [place] CORONARY 04/05/2017 JM GALVAN APRN Ot I48.91 UNSPECIFIED ATRIAL FIBRILLATION 04/05/2017 JM GALVAN APRN Ot I50.9 HEART FAILURE, UNSPECIFIED 04/05/2017 JM GALVAN WAREHOUSE AND RECEIVING SUPERVISOR Ot 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 04/05/2017 JM GALVAN WAREHOUSE AND RECEIVING SUPERVISOR Ot N18.9 CHRONIC KIDNEY DISEASE, UNSPECIFIED 04/05/2017 JM GALVAN APRN Ot R53.1 WEAKNESS 04/05/2017 JM GALVAN APRN Ot Z79.01 ADULT BASIC EDUCATION INSTRUCTOR (CURRENT) USE OF ANTICOAGULANT 04/05/2017 JM GALVAN WAREHOUSE AND RECEIVING SUPERVISOR Ot 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 PACEMAKER 04/05/2017 JM GALVAN APRN Ot Z95.2 PRESENCE OF PROSTHETIC HEART VALVE 04/05/2017 JM GALVAN APRN Ot 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 IMPLANT 04/09/2017 JM GALVAN APRN Ot E86.9 VOLUME DEPLETION, UNSPECIFIED 04/09/2017 JM GALVAN APRN Ot 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 04/09/2017 JM GALVAN APRN Ot I25.10 ATHSCL HEART DISEASE OF [place] CORONARY 04/09/2017 JM GALVAN APRN Ot I48.91 UNSPECIFIED ATRIAL FIBRILLATION 04/09/2017 JM GALVAN APRN Ot I50.9 HEART FAILURE, UNSPECIFIED 04/09/2017 JM GALVAN APRN Ot 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 04/09/2017 JM GALVAN APRN Ot N18.9 CHRONIC KIDNEY DISEASE, UNSPECIFIED 04/09/2017 JM GALVAN APRN Ot R53.1 WEAKNESS 04/09/2017 JM GALVAN APRN Ot Z79.01 CUSTODIAL (CURRENT) USE OF ANTICOAGULANT 04/09/2017 JM GALVAN APRN Ot 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 PACEMAKER 04/09/2017 JM GALVAN APRN Ot Z95.2 PRESENCE OF PROSTHETIC HEART VALVE 04/09/2017 JM GALVAN APRN Ot 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 IMPLANT 04/12/2017 DELIO PAYTON MD Ot I50.9 HEART FAILURE, UNSPECIFIED 04/12/2017 DELIO PAYTON MD Ot 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 [facility] 04/12/2017 DELIO PAYTON MD, Ot I87.332 CHRONIC [...] Ot Z51.81 ENCOUNTER FOR THERAPEUTIC DRUG LEVEL [facility] 04/15/2017 SARA VINSON MD, Ot Z79.01 CUSTODIAL (CURRENT) USE OF ANTICOAGULANT 04/16/2017 DELIO PAYTON MD, Ot I50.9 HEART FAILURE, UNSPECIFIED 04/16/2017 DELIO PAYTON MD, Ot 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 Bacteria identification in wound by culture - 01/30/17 15:01 Bacteria identification in wound by culture [id number] NR FREE TEXT EXTERNAL SENSITIVITY REPORTED AT [...] 13:20 Bacteria identification in wound by culture [id number] NRG FREE TEXT EXTERNAL SENSITIVITY REPORTED 03/16/17 9:25 NRG QUANTITY OF GROWTH Scant Growth NRG CALL POSITIVES (F1 HELP) CALLED TO [facility] 03/19/17 8 :[address] [facility] Bacterial susceptibility panel - 03/13/17 13:20 [...] OF GROWTH Isolated NRG Bacterial blood culture [id number] [facility] Bacterial susceptibility panel - 04/03/17 12:54 [...] ABO+Rh group AP NRG Transfusion band number [id number] NRG Blood group antibody screen NEGATIVE NRG [...] Status Pt. Type Provider Facility Loc./Unit Complaint [id number] 03/27/2017 08:19:00 2016 10:36:00 DIS Outpatient DELIO PAYTON MD [facility] WOUNDCARE [id number] 01/15/2017 12:51:00 2016 00:01:00 DIS Outpatient SAAR VINSON MD [facility] LAB WARFARIN THERAPY MONTHLY TEST [id number] 04/03/2017 11:00:00 2016 13:28:00 DIS Emergency JM GALVAN APRN [facility] ER EXCESSIVE FLUID [id number] 01/30/2017 13:31:00 2016 16:41:00 DIS Emergency SHANEKA ANDRADE DO [facility] ER LEGS/ANKLES SWELLING [id number] 12/11/2016 11:04:00 2016 00:01:00 DIS Outpatient SARA VINSON MD [facility] LAB WARFARIN THERAPY MONTHLY TEST [id number] 08/30/2016 15:19:00 2015 00:01:00 DIS Outpatient ALISSON BAUGH, SARA R [facility] LAB WARFARIN THERAPY MONTHLY TEST [id number] 05/21/2016 10:59:00 2015 00:01:00 DIS Outpatient ALISSON BAUGH, SARA R [facility] LAB WARFARIN THERAPY MONTHLY TEST [id number] 01/23/2016 14:23:00 2015 00:01:00 DIS Outpatient SARA VINSON MD R [facility] LAB WARFARIN THERAPY MONTHLY TEST [id number] 12/11/2015 09:00:00 2015 11:07:00 DIS Emergency BEN BAUGH, RAMSEY Patterson [facility] ER NOSE BLEED [id number] 10/27/2015 18:27:00 2015 10:50:00 DIS Inpatient SARA VINSON MD R [facility] 4TH ANEMIA,CHF [id number] 09/22/2015 14:00:00 2014 00:01:00 DIS Outpatient SARA VINSON MD R [facility] LAB WARFARIN THERAPY MONTHLY TEST [id number] 08/03/2015 12:46:00 2014 23:59:59 CLS Outpatient SALVADOR CANALES APRN [facility] RAD PLEURAL EFFUSION [id number] 06/24/2015 10:08:00 2014 00:01:00 DIS Outpatient SARA VINSON MD R [facility] LAB WARFARIN THERAPY MONTHLY TEST [id number] 06/24/2015 09:53:00 2014 23:59:59 CLS Outpatient CAPRI SILVEIRA DO [facility] RAD HYPOXEMIA DYSPENA CHAD [id number] 06/16/2015 21:05:00 2014 06:45:00 DIS Outpatient SALVADOR CANALES APRN [facility] SLEEP CHAD,SNORING, [id number] 04/14/2015 13:41:00 2014 00:01:00 DIS Outpatient SARA VINSON MD R [facility] LAB WARFARIN THERAPY MONTHLY TEST [id number] 05/09/2015 12:47:00 2014 23:59:59 CLS Outpatient SALVADOR CANALES APRN [facility] RT HYPOXEMIA,DYSPNEA [id number] 03/29/2015 14:20:00 2014 17:50:00 DIS Inpatient ALISSON BAUGH, SARA Saleh [facility] CSD CHF SUSPECTED RLL/RML INFILTRATE CHRONIC A-FIB [id number] 01/26/2015 14:28:00 2014 00:01:00 DIS Outpatient SARA VINSON MD [facility] LAB WARFARIN THERAPY MONTHLY TEST [id number] 11/25/2014 11:40:00 2014 23:59:59 CLS Outpatient JUAN GAMBOA MD [facility] CARD CHRONIC AFIB CAD PACEMAKER [id number] 2014 00:34:00 2014 23:59:59 CLS Preadmit OTHER, UNLISTED [facility] LAB CUSTODIAL ANTICOAGULANT USE,A-FIB [id number] 10/19/2014 09:08:00 2014 00:01:00 DIS Outpatient OTHER, UNLISTED [facility] LAB CUSTODIAL ANTICOAGULANT USE,A-FIB [id number] 11/15/2014 09:51:00 2014 23:59:59 CLS Outpatient JUAN GAMBOA MD [facility] CARD CHRONIC AFIB CAD PACEMAKER [id number] 06/18/2014 09:39:00 2013 00:01:00 DIS Outpatient OTHER, UNLISTED [facility] LAB CUSTODIAL ANTICOAGULANT USE,A-FIB [id number] 02/17/2014 09:58:00 2013 00:01:00 DIS Outpatient OTHER, UNLISTED [facility] LAB CUSTODIAL ANTICOAGULANT USE,A-FIB [id number] 11/13/2013 11:54:00 2013 00:01:00 DIS Outpatient OTHER, UNLISTED [facility] LAB CUSTODIAL ANTICOAGULANT USE,A-FIB [id number] 06/15/2013 08:06:00 2012 00:01:00 DIS Outpatient GERDA LEIVA M [facility] 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,A-FIB [id number] 04/27/2017 14:58:00 ACT Inpatient WILBER ESPINOZA DO [facility] ICU EXPLORATORY LAPAROSCOPY [id number] 04/16/2017 00:13:00 PEN Preadmit ALISSON BAUGH, SARA R [facility] LAB WARFARIN THERAPY MONTHLY TEST [id number] 01/15/2017 11:31:00 ACT Outpatient BAINIESHA, ANSELMO L HOME CARE GIVER [facility] CARD CARDIOMYOPATHY [id number] 01/08/2017 11:31:00 ACT Outpatient BAIMA, ANSELMO L HOME CARE GIVER [facility] CARD CARDIOMYOPATHY [id number] 12/25/2016 11:36:00 ACT Outpatient BAIMA, ANSELMO L HOME CARE GIVER [facility] CARD CAD,CHRONIC ATRIAL FIBRILLATION,CHF,HYPERTENSION [id number] 12/18/2016 12:35:00 ACT Outpatient BAIMA, ANSELMO L HOME CARE GIVER [facility] LAB CAD,HTN,CHRONIC A FIB,CHAD [id number] 12/11/2016 10:57:00 ACT Outpatient BAIMA, ANSELMO L HOME CARE GIVER [facility] LAB CAF,CHF,DYSPNEA,HYPERTENSION,CAD [id number] 11/01/2016 15:40:00 ACT Outpatient BAIMA, ANSELMO L HOME CARE GIVER [facility] LAB CHF,CAD,DYSPNEA [id number] 03/29/2016 13:31:00 ACT Outpatient YUSUF ABDI MD, FACC, FACP CCDS [facility] LAB CAD,HERD,HYPERTENSION,CHF,DYSPNEA [id number] 01/23/2016 14:24:00 ACT Outpatient BAINIESHA, ANSELMO L HOME CARE GIVER [facility] LAB CHRONIC DIASTOLIC CHF,HYPERTENSION [id number] 12/26/2015 11:30:00 ACT Outpatient YUSUF ABDI MD, FACC, FACP CCDS [facility] LAB CAD,CHRONIC ANTICOAGULATION,HPERTENSION [id number] 11/25/2015 14:59:00 Document Registration [id number] 11/23/2015 10:05:00 Document Registration [id number] 2015 16:05:00 ACT Outpatient ALISSON BAUGH, SARA Saleh [facility] DM, CHF, A-FIB [id number] 03/19/2013 09:20:00 Document Registration [id number] 12/02/2012 09:24:00 Document Registration [id number] 07/14/2012 13:42:00 Document Registration
[2017-04-30] MEDS: ENOXAPARIN 300 MG/3 ML (LOVENOX) MULTI-DOSE VIAL SQ SCH (09:41)
[2017-04-30] MEDS ORDERED: PROMETHAZINE INJ 25 MG/ML (PHENERGAN) AMP IVP PRN (10:00)
[2017-04-30] MEDS ORDERED: GLYCOPYRROLATE 0.2 MG/ML (ROBINUL) 2 ML VIAL IV PRN (10:00)
[2017-04-30] MEDS ORDERED: SALIVA STIMULANT MOUTH SPRAY (BIOTENE) 1.5 OZ MM PRN (10:00)
[2017-04-30] MEDS ORDERED: ARTIFICIAL TEARS OINT (LACRI-LUBE) 3.5 GM TUBE OU PRN (10:00)
[2017-04-30] MEDS ORDERED: ARTIFICAL TEARS 0.4 ML UNIT DOSE (REFRESH PLUS) OU PRN (10:00)
[2017-04-30] MEDS ORDERED: RT-ALBUTEROL/IPRATROPIUM 3 ML (DUONEB) VIAL INH PRN (10:00)
[2017-04-30] MEDS ORDERED: ACETAMINOPHEN 650 MG SUPP (TYLENOL) PR PRN (10:00)
[2017-04-30] MEDS ORDERED: BISACODYL 10 MG SUPP (DULCOLAX) PR PRN (10:00)
[2017-04-30] MEDS ORDERED: LORazepam INJ 2 MG/ML (ATIVAN) VIAL IVP PRN (10:00)
[2017-04-30] MEDS ORDERED: ONDANSETRON 4 MG/2 ML (SDV) Z0FRAN IVP PRN (10:00)
--- NOTE | 2017-04-30 10:55 | Pulmonary Procedures ---
Pulmonary Procedures Date of Procedure Date of Service: Apr 30, 2017 Bronch Bronchoscopy with bronchoalveolar lavage (BAL). Preop DX Mucous plugging Postop DX: same Complications: none After informed consent obtained and formal time out pt was sedated using diprivan . Bronchoscope was advanced through the ET tube. An anatomical tour was undertaken down to the segmental bronchi bilaterally. No endobronchial lesions noted. From the RML a bronchoalveolar lavage (BAL) obtained.PT tolerated procedure well. CAPRI SILVEIRA DO Apr 30, 2017 10:55
--- NOTE | 2017-04-30 11:12 | Progress Note ---
Subjective Time Seen by Provider: 09:15 Subjective/Events-last exam Patient still intubated. Family just agreed to put patient on comfort care. Patient to be extubated soon. Objective Exam Vital Signs Date Time Temp Pulse Resp B/P (MAP) Pulse Ox O2 Delivery O2 Flow Rate FiO2 04/30/17 10:00 109 15 137/63 99 Mechanical Ventilator 25.00 04/30/17 09:00 118 21 122/55 99 Mechanical Ventilator 25.00 04/30/17 08:00 105 16 108/53 97 Mechanical Ventilator 25.00 04/30/17 08:00 100 Mechanical Ventilator 25 04/30/17 07:39 126 25 97 25 04/30/17 07:00 115 11 142/61 99 Mechanical Ventilator 25.00 04/30/17 07:00 115 04/30/17 06:29 123 27 99 25 04/30/17 06:00 114 16 133/57 98 Mechanical Ventilator 25.00 04/30/17 05:00 120 17 132/60 99 Mechanical Ventilator 25.00 04/30/17 04:01 107 04/30/17 04:00 100 Mechanical Ventilator 25 04/30/17 04:00 114 9 141/62 99 Mechanical Ventilator 25.00 04/30/17 04:00 117 26 99 25 04/30/17 03:00 103 10 139/62 99 Mechanical Ventilator 25.00 04/30/17 02:15 114 24 99 25 04/30/17 02:00 98 23 142/63 99 Mechanical Ventilator 25.00 04/30/17 01:00 105 24 139/60 99 Mechanical Ventilator 25.00 04/30/17 01:00 111 04/30/17 00:08 112 21 98 25 04/30/17 00:00 100 Mechanical Ventilator 25 04/30/17 00:00 97.0 04/30/17 00:00 103 11 127/56 99 Mechanical Ventilator 25.00 04/29/17 23:00 111 16 121/58 98 Mechanical Ventilator 25.00 04/29/17 22:57 97.7 126 24 123/57 99 Mechanical Ventilator 25.00 04/29/17 22:10 126 24 99 25 04/29/17 22:00 112 8 122/56 98 Mechanical Ventilator 25.00 04/29/17 21:00 128 21 126/58 99 Mechanical Ventilator 25.00 04/29/17 20:01 124 23 98 25 04/29/17 20:00 110 18 111/53 98 Mechanical Ventilator 25.00 04/29/17 20:00 100 Mechanical Ventilator 25 04/29/17 20:00 97.7 04/29/17 19:00 133 9 122/59 98 Mechanical Ventilator 25.00 04/29/17 19:00 136 04/29/17 18:00 129 17 114/53 98 Mechanical Ventilator 25.00 04/29/17 17:48 121 21 98 25 04/29/17 17:00 122 24 122/60 88 Mechanical Ventilator 25.00 04/29/17 16:22 116 19 100 25 04/29/17 16:00 131 11 121/56 95 Mechanical Ventilator 25.00 04/29/17 16:00 100 Mechanical Ventilator 25 04/29/17 15:58 97.4 111 20 121/55 91 Mechanical Ventilator 25.00 04/29/17 15:15 Mechanical Ventilator 25.00 04/29/17 14:36 108 20 100 25 04/29/17 14:00 111 8 113/58 100 Mechanical Ventilator 25.00 04/29/17 13:00 107 04/29/17 12:03 118 20 100 25 04/29/17 12:00 100 Mechanical Ventilator 25 I & O 04/30/17 07:00 Intake Total 3608 ml Output Total 1855 ml Balance 1753 ml Capillary Refill : Less Than 3 Seconds General Appearance: WD/WN, Chronically ill, Obese, Other (intubated and sedated ) HEENT: Normal ENT Inspection, Other (intubated) Neck: Normal Inspection, Supple Respiratory: No Accessory Muscle Use, No Respiratory Distress, Other ( intubated. ) Cardiovascular: Regular Rate, Rhythm Gastrointestinal: soft (Open midline skin) Extremity: Normal Capillary Refill, Normal Inspection, Pedal Edema Neurologic/Psychiatric: Other (sedated and intubated. Responded to RN commands) Skin: Mottled, Pallor, Other (Upper and lower extremity edema anasarca. Patient to have wound vac to incision site from surgery yesterday. Clean and dry this Am. no signs of drainage noted to wound. ) Lymphatic: No Adenopathy Results Lab Laboratory Tests Test 04/28/17 13:45 04/28/17 15:30 04/29/17 03:58 04/29/17 12:56 Range/Units Vancomycin Level Trough 11.7 10.0-20.0 UG/ML Blood Gas Puncture Site ART LINE BRUNO Blood Gas Patient Temperature 98.4 96.6 Arterial Blood pH 7.36 L 7.35 L 7.37-7.43 Arterial Blood Partial Pressure CO2 37 37 35-45 MMHG Arterial Blood Partial Pressure O2 63 L 125 H 79-93 MMHG Arterial Blood HCO3 21 L 20 L 23-27 MMOL/L Arterial Blood Total CO2 21.9 21.3 21.0-31.0 MMOL/L Arterial Blood Oxygen Saturation 93 L 99 94-100 % Arterial Blood Base Excess -3.8 L -4.8 L -2.5-2.5 MMOL/L Bk Test ART LINE ART LINE Blood Gas Ventilator Setting YES YES Blood Gas Inspired Oxygen 21% 35% White Blood Count 13.3 H 4.3-11.0 10^3/uL Red Blood Count 3.87 L 4.35-5.85 10^6/uL Hemoglobin 9.5 L 13.3-17.7 G/DL Hematocrit 33 L 40-54 % Mean Corpuscular Volume 85 80-99 FL Mean Corpuscular Hemoglobin 25 25-34 PG Mean Corpuscular Hemoglobin Concent 29 L 32-36 G/DL Red Cell Distribution Width 21.1 H 10.0-14.5 % Platelet Count 210 130-400 10^3/uL Mean Platelet Volume 8.8 7.4-10.4 FL Neutrophils (%) (Auto) 92 H 42-75 % Lymphocytes (%) (Auto) 4 L 12-44 % Monocytes (%) (Auto) 3 0-12 % Eosinophils (%) (Auto) 0 0-10 % Basophils (%) (Auto) 0 0-10 % Neutrophils # (Auto) 12.3 H 1.8-7.8 X 10^3 Lymphocytes # (Auto) 0.6 L 1.0-4.0 X 10^3 Monocytes # (Auto) 0.4 0.0-1.0 X 10^3 Eosinophils # (Auto) 0.0 0.0-0.3 10^3/uL Basophils # (Auto) 0.0 0.0-0.1 10^3/uL Sodium Level 140 135-145 MMOL/L Potassium Level 3.6 3.6-5.0 MMOL/L Chloride Level 111 H 98-107 MMOL/L Carbon Dioxide Level 19 L 21-32 MMOL/L Anion Gap 10 5-14 MMOL/L Blood Urea Nitrogen 35 H 7-18 MG/DL Creatinine 1.74 H 0.60-1.30 MG/DL Estimat Glomerular Filtration Rate 38 BUN/Creatinine Ratio 20 Glucose Level 199 H 70-105 MG/DL Calcium Level 7.2 L 8.5-10.1 MG/DL Phosphorus Level 3.5 2.3-4.7 MG/DL Magnesium Level 1.9 1.8-2.4 MG/DL Lab Scanned Report Transfusion Reaction Form [id number] Test 04/30/17 05:45 Range/Units White Blood Count 10.9 4.3-11.0 10^3/uL Red Blood Count 3.26 L 4.35-5.85 10^6/uL Hemoglobin 8.1 L 13.3-17.7 G/DL Hematocrit 28 L 40-54 % Mean Corpuscular Volume 85 80-99 FL Mean Corpuscular Hemoglobin 25 25-34 PG Mean Corpuscular Hemoglobin Concent 29 L 32-36 G/DL Red Cell Distribution Width 20.9 H 10.0-14.5 % Platelet Count 137 130-400 10^3/uL Mean Platelet Volume 9.4 7.4-10.4 FL Neutrophils (%) (Auto) 96 H 42-75 % Lymphocytes (%) (Auto) 3 L 12-44 % Monocytes (%) (Auto) 2 0-12 % Eosinophils (%) (Auto) 0 0-10 % Basophils (%) (Auto) 0 0-10 % Neutrophils # (Auto) 10.4 H 1.8-7.8 X 10^3 Lymphocytes # (Auto) 0.3 L 1.0-4.0 X 10^3 Monocytes # (Auto) 0.2 0.0-1.0 X 10^3 Eosinophils # (Auto) 0.0 0.0-0.3 10^3/uL Basophils # (Auto) 0.0 0.0-0.1 10^3/uL Blood Gas Puncture Site BRUNO Blood Gas Patient Temperature 96.0 Arterial Blood pH 7.36 L 7.37-7.43 Arterial Blood Partial Pressure CO2 32 L 35-45 MMHG Arterial Blood Partial Pressure O2 98 H 79-93 MMHG Arterial Blood HCO3 18 L 23-27 MMOL/L Arterial Blood Total CO2 19.1 L 21.0-31.0 MMOL/L Arterial Blood Oxygen Saturation 99 94-100 % Arterial Blood Base Excess -6.6 L -2.5-2.5 MMOL/L Bk Test ART LINE Blood Gas Ventilator Setting YES Blood Gas Inspired Oxygen 25% Sodium Level 142 135-145 MMOL/L Potassium Level 3.3 L 3.6-5.0 MMOL/L Chloride Level 114 H 98-107 MMOL/L Carbon Dioxide Level 18 L 21-32 MMOL/L Anion Gap 10 5-14 MMOL/L Blood Urea Nitrogen 28 H 7-18 MG/DL Creatinine 1.45 H 0.60-1.30 MG/DL Estimat Glomerular Filtration Rate 46 BUN/Creatinine Ratio 19 Glucose Level 153 H 70-105 MG/DL Calcium Level 7.6 L 8.5-10.1 MG/DL Phosphorus Level 3.3 2.3-4.7 MG/DL Magnesium Level 2.0 1.8-2.4 MG/DL Laboratory Tests 04/29/17 12:56: Lab Scanned Report Transfusion Reaction Form 04/30/17 05:45: White Blood Count 10.9, Red Blood Count 3.26L, Hemoglobin 8.1L, Hematocrit 28L, Mean Corpuscular Volume 85, Mean Corpuscular Hemoglobin 25, Mean Corpuscular Hemoglobin Concent 29L, Red Cell Distribution Width 20.9H, Platelet Count 137, Mean Platelet Volume 9.4, Neutrophils (%) (Auto) 96H, Lymphocytes (%) (Auto) 3L , Monocytes (%) (Auto) 2, Eosinophils (%) (Auto) 0, Basophils (%) (Auto) 0, Neutrophils # (Auto) 10.4H, Lymphocytes # (Auto) 0.3L, Monocytes # (Auto) 0.2, Eosinophils # (Auto) 0.0, Basophils # (Auto) 0.0, Blood Gas Puncture Site BRUNO , Blood Gas Patient Temperature 96.0, Arterial Blood pH 7.36L, Arterial Blood Partial Pressure CO2 32L, Arterial Blood Partial Pressure O2 98H, Arterial Blood HCO3 18L, Arterial Blood Total CO2 19.1L, Arterial Blood Oxygen Saturation 99, Arterial Blood Base Excess -6.6L, Bk Test ART LINE, Blood Gas Ventilator Setting YES, Blood Gas Inspired Oxygen 25%, Sodium Level 142, Potassium Level 3.3L, Chloride Level 114H, Carbon Dioxide Level 18L, Anion Gap 10, Blood Urea Nitrogen 28H, Creatinine 1.45H, Estimat Glomerular Filtration Rate 46, BUN/Creatinine Ratio 19, Glucose Level 153H, Calcium Level 7.6L, Phosphorus Level 3.3, Magnesium Level 2.0 Microbiology 04/27/17 Blood Culture - Preliminary, Resulted No growth 04/27/17 Urine Culture - Final, Complete Escherichia Coli 04/27/17 Gram Stain - Final, Resulted 04/27/17 Anaerobic Culture - Preliminary, Resulted No growth 04/27/17 Surgical Culture - Preliminary, Resulted No growth Assessment/Plan Assessment/Plan Assessment/Plan perforation of hollow viscus tachypnea and tachycardic sepsis secondary to hollow viscus perforation septic shock secondary to perforated viscus CHF renal failure anasarca Non-ST elevated FL patient to be extubated and placed on comfort care. Will convey information to Dr. Adelaida Son- Dr. Phillips had family discussion with patients family. They have elected for comfort care. Patient was extubated. Clinical Quality Measures DVT/VTE Risk/Contraindication: Risk Factor Score Per Nursin RFS Level Per Nursing on Admit: 4+=Very High FERNANDA LOWE APRN Apr 30, 2017 11:12 WILBER SON DO Apr 30, 2017 15:02
[2017-04-30] MEDS: morphine INJ 4 MG/ML 1 ML (VIAL/SYRINGE) IV PRN ×2 (11:17→13:58)
[2017-04-30] MEDS ORDERED: TROUGH ORDER-PHARMACY XX NR (14:00)
--- NOTE | 2017-04-30 14:48 | Progress Note-Hospitalist ---
Standard Progress Note Progress Notes/Assess & Plan Date Seen 04/30/17 Time Seen by Provider: 14:45 Diagnosis Assessment: Status post perforated ulcer emergent surgery completed Ventilator dependence Coronary artery disease previous bypass Acute on chronic renal failure End-of-life status Assess & Plan/Chief Complaint After staff discussed the situation with the patient's and family it was said the futile to continue extreme measures. He had been a no code designation prior to operation and his situation has been much more dire since that time. Accordingly he was extubated this morning. Surprisingly he is still with as although his inspirations are slow and shallow. Impression: Perforated abdominal viscus. 2.Septic shock secondary to number 1 Plan: Comfort care status Labs Laboratory Tests 04/29/17 03:58 04/30/17 05:45 RAMSEY CONTRERAS MD Apr 30, 2017 14:48
[2017-05-01] MEDS: NS IV 1000 ML 1,000 ML IV SCH (05:13)
[2017-05-01] MEDS ORDERED: aCETylcysteine 20% (MUCOMYST) 30ML SOLN VIAL INH SCH (14:00)
== END 2017-05-01 09:54 | disposition expired | DRG 853 ==
LOC: EDUNIT# 10:31 → ER 10:33 → SDC 12:19 → ICU 14:58 → 4TH 04-30 17:35
PROVIDERS: ADMIT Surgery; ATTEND Surgery
PROC: 0W9G0ZZ Drainage of Peritoneal Cavity, Open Approach (ICD-10-PCS; 2017-04-27)
PROC: 5A1945Z Respiratory Ventilation, 24-96 Consecutive Hours (ICD-10-PCS; 2017-04-27)
PROC: 0DB90ZX Excision of Duodenum, Open Approach, Diagnostic (ICD-10-PCS; principal; 2017-04-27 13:15)
PROC: 0DU907Z Supplement Duodenum with Autologous Tissue Substitute, Open Approach (ICD-10-PCS; 2017-04-27 13:15)
PROC: 0B9D8ZZ Drainage of Right Middle Lung Lobe, Via Natural or Artificial Opening Endoscopic (ICD-10-PCS; 2017-04-30)
DX: A41.9 Sepsis, unspecified organism (principal); R65.21 Severe sepsis with septic shock; K26.5 Chronic or unspecified duodenal ulcer with perforation; K55.029 Acute infarction of small intestine, extent unspecified; I21.4 Non-ST elevation (NSTEMI) myocardial infarction; I13.0 Hypertensive heart and chronic kidney disease with heart failure and stage 1 through stage 4 chronic kidney disease, or unspecified chronic kidney disease; I50.43 Acute on chronic combined systolic (congestive) and diastolic (congestive) heart failure; Z66 Do not resuscitate; Z51.5 Encounter for palliative care; N18.4 Chronic kidney disease, stage 4 (severe); J98.11 Atelectasis; J98.09 Other diseases of bronchus, not elsewhere classified; I42.0 Dilated cardiomyopathy; I48.2 Chronic atrial fibrillation; N17.9 Acute kidney failure, unspecified; I27.2 Other secondary pulmonary hypertension; J44.9 Chronic obstructive pulmonary disease, unspecified; G47.33 Obstructive sleep apnea (adult) (pediatric); K21.9 Gastro-esophageal reflux disease without esophagitis; I25.10 Atherosclerotic heart disease of native coronary artery without angina pectoris; I25.2 Old myocardial infarction; G43.909 Migraine, unspecified, not intractable, without status migrainosus; H40.9 Unspecified glaucoma; M19.91 Primary osteoarthritis, unspecified site; D64.9 Anemia, unspecified; Z95.2 Presence of prosthetic heart valve; Z95.0 Presence of cardiac pacemaker; Z95.5 Presence of coronary angioplasty implant and graft; Z95.1 Presence of aortocoronary bypass graft; Z99.81 Dependence on supplemental oxygen
CPT/HCPCS: 36415; 71010; 71250; 74176; 80048; 80053; 80162; 80202; 81000; 82150; 82805; 83605; 83690; 83735; 83880; 84100; 84443; 84484; 85007; 85025; 85027; 85610; 85730; 86850; 86900; 86901; 86920; 87040; 87070; 87075; 87077; 87088; 87186; 87205; 93005; 93041; 94002; 94003; 94640; 94668; 94799; 96361; 96374; 96375; 96376